=== PATIENT | female | born 1965 | race Caucasian/White ===

== ENCOUNTER → 2023-06-11 09:42 | Outpatient (REF) | payer MEDICARE, OTHER, SELFPAY ==
[2023-06-11 12:32] LABS: Chloride 110 mmol/L (98-107); Sodium 143 mmol/L (135-145)
[2023-06-11 12:35] LABS: Albumin 3.7 g/dl (3.5-5.0); Blood Urea Nitrogen 11 mg/dl (7-17); Calcium 8.7 mg/dl (8.4-10.2); Carbon Dioxide 20 mmol/L (22-30); Glomerular Filtration Rate 29.1; Glucose 86 mg/dl (70-99); Phosphorus 4.9 mg/dl (2.5-4.5)
== END ==
LOC: REG 09:42
PROVIDERS: ATTENDING PHYSICIAN Specialist
DX: N18.31 Chronic kidney disease, stage 3a (principal); E87.6 Hypokalemia; I10 Essential (primary) hypertension; N17.9 Acute kidney failure, unspecified
CPT/HCPCS: 36415; 80069

== ENCOUNTER 2023-10-20 16:21 | Inpatient (IN) | payer MEDICARE, OTHER, SELFPAY ==
[2023-10-20] VITALS (10 sets, daily range): BP systolic 92–133; BP diastolic 61–91; PULSE 90–123; BMI 25.9
[2023-10-20 11:34] LABS: % Basophils 0.7 % (0-2); % Eosinophils 1.1 % (0-6); % Immature Granulocytes 0.2 % (0-0.5); % Lymphocytes 31.8 % (20.5-51.1); % Monocytes 8.4 % (1.7-9.3); % Neutrophils 57.8 % (42.2-75.2); Absolute Eosinophils 0.1 10^3/uL (0-0.7); Absolute Lymphocytes 1.8 10^3/uL (1.2-3.4); Absolute Monocytes 0.5 10^3/uL (0.1-0.6); Absolute Neutrophils 3.2 10^3/uL (1.4-6.5); Hematocrit 32.1 % (37.0-47.0); Hemoglobin 11.4 g/dL (12.0-16.0); Mean Corp Hgb Conc. 35.5 g/dL (33.0-37.0); Mean Corpuscular Hgb 30.8 pg (27.0-31.0); Mean Corpuscular Volume 86.8 fL (81.0-99.0); Mean Platelet Volume 10.2 fL (7.4-10.4); Nucleated Red Blood Cells % 0 %; Platelet Count 344 10^3/uL (130-400); Red Cell Dist. Width 14.6 % (11.5-14.5); White Blood Cell Count 5.6 10^3/uL (4.8-10.8)
[2023-10-20 11:56] LABS: Sodium 136 mmol/L (135-145)
[2023-10-20 11:59] LABS: ALT (SGPT) 44 U/L (0-35); AST (SGOT) 88 U/L (14-36); Albumin 3.5 g/dl (3.5-5.0); Alkaline Phosphatase 128 U/L (38-126); Blood Urea Nitrogen 10 mg/dl (7-17); Calcium 8.5 mg/dl (8.4-10.2); Carbon Dioxide 30 mmol/L (22-30); Chloride 98 mmol/L (98-107); Glucose 96 mg/dl (70-99); Potassium 2.5 mmol/L (3.5-5.1); Total Bilirubin 1.3 mg/dl (0.2-1.3); Total Protein 6.3 g/dl (6.3-8.2); eGFR 48.26
--- NOTE | 2023-10-20 12:52 | ED.GENMED ---
History of Present Illness
General
Chief Complaint: Blood Pressure Problem
Source: patient and spouse
Time Seen by Provider: 10/20/23 12:31
Travel History
Have you had any contact with someone who has COVID-19?: No
Do you have any symptoms of coronavirus? Fever > 100 degrees, chills, cough, shortness of breath, sore throat, loss of taste or smell, muscle aches, or headache?: No
History of Present Illness
History of Present Illness:
Patient is a 58-year-old female presents emergency department with complaints of palpitations. She does not typically get palpitations, noticed them 'all morning', and now intermittently. This is not associated with chest pain or pressure, back
pain, neck pain, headache, dizziness, dyspnea, fever. She does have intermittent chills. Patient has had recent medication changes due to a rising creatinine, noted hypokalemia, and intermittent hypotension. 3 weeks ago when in the associate professor of [employer]
office, her carvedilol and spironolactone were discontinued and she was prescribed sodium tablets. She is compliant with this. She continues to suffer with orthostatic symptoms that resolved after a few seconds with standing up too quickly. She
denies syncope, headache. Patient admits to being noncompliant with her potassium pills for at least the last 2 weeks because of the size.
Past History
Past History
ED Past Medical History: Asthma, CHF, Fibromyalgia, GERD, Hypothyroidism, Psychiatric and Other (Diabetes)
ED Past Surgical History: Cholecystectomy and Other (Laparoscopies, bariatric)
Social History
Tobacco: Non-smoker
Alcohol: None
Drug: None
Personal:
Living: with family
Family History
Family History: Diabetes
Phy Exam
Physical Exam
Physical Exam:
GENERAL: Alert , in no apparent distress
EYE: pupils equal and reactive
NECK: Supple, no significant adenopathy.
ENT: o/p clr, mmm.
CARDIAC: Regular rate and rhythm .
LUNGS: Clear breath sounds bilaterally, no acute respiratory distress, no wheezes/rales/rhonchi
ABDOMEN: Soft, without focal tenderness, no r/g, no cvat
NEUROLOGICAL: Alert and oriented, no focal neuro deficits
SKIN: Warm and dry, skin intact.
MUSCULOSKELETAL: No edema, well perfused.
PSYCH: Normal and appropriate interaction.
Course
Orders/Labs/Results
Orders:
Orders
10/20/23 11:17
Electrocardiogram (*1) Urgent
Reason for Study: Fatigue / Weakness
EKG- Treatment ONCE
10/20/23 11:26
Complete Blood Count/With Diff Urgent
Comprehensive Metabolic Panel Urgent
Magnesium Urgent
Comment: ADD ON
Phosphorus Urgent
Comment: ADD ON
TSH Urgent
Comment: ADD ON
10/20/23 12:47
Orthostatic VS- Treatment ONCE
10/20/23 12:54
Add On- LAB Urgent
Tests Added?: tsh, phosphorus, magnesium
10/20/23 13:02
Potassium Chloride [KCl] 40 meq 0.9% Sodium Chloride 250 ml [Nss] 250 ml IV NOW
10/20/23 14:50
Teds [Anti-embolism (EDUAR) Hose] As Directed
Type: Knee high
10/20/23 Dinner
2000 calorie (17 carb) Diabetic
At Your Request: Full Participation
10/20/23 15:20
Potassium Chloride 10% Elixir [KCl Elixir] 40 meq PO NOW STA
10/20/23 15:27
Admit/Transfer Patient As Directed
Co-Sign Provider:
Level of Care: Inpatient admission
Assign to:: Telemetry
Physician / Group: Gennaro
Diagnosis: Hypokalemia
Reason for Telemetry: Other
Other Reason for Telemetry: Electrolyte Abnormalities
Date to Stop Telemetry: 10/22/23
Time to Stop Telemetry: 11:00
Reason for Hospitalization: potassium replacement
Expected length of stay greater than two midnights?: Yes
ELOS- Estimated Length of Stay in days: 3
I certify the patient meets the requirements for IP care: Yes
10/20/23 15:29
Code Status As Directed
Resuscitation Status: Full Code
10/20/23 15:49
Magnesium Sulfate 1 grams 0.9% Sodium Chloride 100 ml [Nss] 100 ml IV NOW
10/20/23 16:00
0.9% Sodium Chloride 1000 ml [Nss] 1,000 ml IV 60 mls/hr
10/20/23 16:21
NEPHROLOGY CONSULT Routine
Consulting Provider: Geraldine Sprague
Was physician already notified: Yes
10/20/23 17:15
Acetaminophen [Tylenol] 650 mg PO Q4HPRN PRN
Dextrose 50%-Water [Dextrose 50% Syringe] 12.5 grams IV [id number] PRN
Glucagon [GlucaGen] 1 mg IM PRN PRN
HYDROmorphone [Dilaudid] 4 mg PO BIDPRN PRN
Insulin Aspart Corrective Low [Novolog Flexpen-Low Resistance] See Protocol SC AC
Ondansetron Injectable [Zofran] 4 mg IV Q6HPRN PRN
Zolpidem Tartrate [Ambien] 10 mg PO HSPRN PRN
10/20/23 17:15
Activity As Directed
Activity Level: Out of Bed-Early Mobility
With Assistance
Bedside Glucose Monitoring As Directed
Frequency: AC&HS
Comment: Change to q6h if pt on TPN, tube feeding or not eating
I&O [Intake/ Output] As Directed
Frequency: q12h
Orthostatic Vital Signs As Directed
Orthostatic VS Frequency: BID
Pneumatic Compression Sleeves As Directed
Type: Knee high
Vital Signs As Directed
Frequency: Per unit guidelines
Weight As Directed
Frequency: Daily
DX Deep Vein Thrombosis Video Routine
10/20/23 18:07
Creatine Phosphokinase Routine
Comment: ADD ON
10/20/23 20:00
Cyclobenzaprine HCl [Flexeril] 20 mg PO DAILY@1999
Sodium Chloride 1 gram PO BID
10/20/23 22:00
Famotidine [Pepcid] 20 mg PO HS
Ropinirole [Requip] 4 mg PO HS
10/21/23 02:09
Complete Blood Count/No Diff IN AM
Glycohemoglobin (HgbA1c) IN AM
10/21/23 06:30
Magnesium IN AM
10/21/23 07:00
Levothyroxine [Synthroid] 50 mcg PO DAILY@0700
10/21/23 08:00
Bupropion(24Hr)Extended Releas [WELLBUTRIN XL (24 hour extended release)] 150 mg PO DAILY
Cyclobenzaprine HCl [Flexeril] 10 mg PO DAILY
Potassium Chloride Powder [Klor-Con] 20 meq PO DAILY
10/22/23 11:00
DC Protocol for Telemetry ONCE
Abnormal Lab Results
10/20/23
11:26
RBC 3.70 L 10^6/uL
(4.20-5.40)
Hgb 11.4 L g/dL
(12.0-16.0)
Hct 32.1 L %
(37.0-47.0)
RDW 14.6 H %
(11.5-14.5)
Potassium 2.5 L* mmol/L
(3.5-5.1)
Creatinine 1.3 H mg/dL
(0.6-1.0)
AST 88 H U/L
(14-36)
ALT 44 H U/L
(0-35)
Alkaline Phosphatase 128 H U/L
(38-126)
10/20/23 11:26
10/20/23 11:26
Vital Signs
Initial and Last Documented VS:
Initial Vital Signs
Temp Pulse Resp BP Pulse Ox
98.0 F 101 16 127/83 98
10/20/23 11:14 10/20/23 11:14 10/20/23 11:14 10/20/23 11:14 10/20/23 11:14
Last Documented Vital Signs
Temp Pulse Resp BP Pulse Ox
98.1 F 100 16 106/73 96
10/22/23 12:18 10/22/23 12:18 10/22/23 12:18 10/22/23 12:18 10/22/23 12:18
*Critical Care Note
Total Time (30-74mins, 75-104mins- exclusive of procedures): Not Applicable
Update Note
Update Note:
Patient presents to the Emergency Department with __palpitations
Number and Complexity of Problems Addressed at the Encounter
� Chronic conditions affecting care:
� Acute Exacerbation and/or Progression of Chronic Illness:
� Differential Diagnosis includes: But not limited to electrolyte disturbance, hyperthyroidism, medication effect, etc.
Amount and/or Complexity of Data to be Reviewed and Analyzed
� I performed an independent evaluation of and my interpretation is:
EKG: Read by me, normal sinus rhythm, slight T wave flattening, no acute ischemia, slight low voltage
CT:
Xrays:
Laboratory Studies: Anemia noted but at baseline, creatinine improved from prior which was 2.0 in the past now 1.3. Potassium low at 2.5, will replace
Other:
� Review of other/old records reveals:
� Clinical information was obtained by an independent historian: who is bedside
� Prescriptions/Medications Considered but not given:
� Further testing considered but not performed:
Risk of Complications and/or Morbidity or Mortality of Patient Management
� Social determinants of health affecting care:
� Discussion with other providers (PCP, Hospitalists, Consultants, etc):
� Escalation of care including admission/observation vs risk of discharge considered: Text sent to nephrology regarding labs and plan of care thus far.
Magnesium and phosphorus unremarkable/normal, TSH pending. I suspect her low potassium is contributing to her symptoms of palpitations and dizziness. Of note, orthostatic positive, heart rate increased by 30 bpm upon standing. She may have an
element of mild volume depletion although clinically she does not look particularly dry. We are being judicious regarding IV fluids given her history of heart failure. IV potassium infusing now. Nephrology and hospitalist aware, hospitalist will
admit.
ED Attending Note
-
Portions of this chart may have been created with voice recognition software.� Occasional wrong word or��sound alike� substitutions may have occurred due to the inherent limitations of voice recognition software.
Discharge Plan
Departure
Patient Disposition: Admit
Date of Disposition: 10/20/23
Time of Disposition: 14:42
Admit to: Telemetry
Presentation/result/management discussed w/ accepting MD/: tyler
Condition: Good
Discharge Problem:
Acute hypokalemia
Interventions
Interventions:
*Risk Screen - Suicide Last Done: 10/20/23 17:45
*General Assessment Last Done: 10/20/23 17:07
*Neglect/Abuse Screening Last Done: 10/20/23 13:05
ED- Fall Risk Assessment Last Done: 10/20/23 17:07
*ED COVID-19 Vaccine History Last Done: 10/20/23 11:14
*Nursing Disposition Last Done: 10/20/23 17:07
ED- Cardiac Assessment Last Done: 10/20/23 13:05
ED- Neurological Assessment Last Done: 10/20/23 13:05
ED- Pulmonary Assessment Last Done: 10/20/23 13:05
Discharge Date and Time
Discharge Date/Time: 10/20/23 17:09
[2023-10-20 13:38] LABS: Magnesium 1.8 mg/dl (1.6-2.3); Phosphorus 3.7 mg/dl (2.5-4.5)
[2023-10-20] MEDS: KCL 270 MEQ IV ×2 (14:12→21:33)
[2023-10-20 15:06] LABS: TSH 1.87 uIU/ml (0.47-4.68)
[2023-10-20] MEDS: KCL ELIXIR 40 MEQ PO (15:35)
--- NOTE | 2023-10-20 15:51 | HPS.HSE ---
Addendum entered and electronically signed by Jesse Burdick MD 10/20/23 16:04:
I saw and examined the patient.
The PATIENT CARE REPRESENTATIVE or PA's note was reviewed and I agree with the note.
Comment: 58-year-old female with past medical history of diabetes, CKD, hypothyroidism, insomnia, depression, anxiety, rheumatoid arthritis, GERD, fibromyalgia, restless leg syndrome came to the hospital with palpitations. Potassium in the ED 2.5.
Replete potassium. Does noted occasional nausea from past 2 weeks. Replete magnesium. Nephrology consulted. Monitor LFTs. Denies any abdominal pain.
General:�Comfortable and Conversant
HEENT:�NormoCephalic, Anicteric
Respiratory:�Clear, no wheezing
Cardiac:�S1/S2, Regular Rhythm
GI:�Soft and Non Tender
Musculoskeletal:�No Edema
Neuro:�Awake, Alert, Oriented and Nonfocal/grossly intact
Psych: calm
Original Note:
Family Physician
-
Family Physician: Roxy Hussein
Chief Complaint
-
Palpitations
History of Present Illness
Pt is a 58yo F w/ a PMH of CKD-III, Asthma, DM-II and Hypothyroidism who is presenting to the ED c/o palpitations x 1 day. She states she has previously experienced intermittent palpitations over the last few months, but felt this was more severe.
She states she has been experiencing several bouts of nausea with vomiting over the last 2 weeks that she describes as intermittent and states the emesis is bilious and non-bloody. The pt admits to intermittent constipation and diarrhea that she
states are brown in color and occur intermittently over the last 2 weeks with no blood in the stool and states she last experienced diarrhea 3 days ago. She was seen by her independent trader 3 weeks ago and was told to discontinue her Carvedilol and
Spironolactone and prescribed her sodium tablets and potassium tablets due to her increased creatinine, hypokalemia and orthostasis. She has been compliant with the sodium but not the potassium as she says the potassium tablets are too large and
she's unable to swallow them. She admits to dizziness with movement x 6 weeks. She admits to constant fatigue x 6 weeks. She states she has been experiencing weakness in her lower legs x 6 weeks. She denies fever, chest pain or chest pressure,
shortness of breath, and syncopal episodes.
Medical History
Past Medical History
Past Medical History: Reports Other
Additional Past Medical History:
Dilated Cardiomyopathy - Resolved
Diabetes Mellitus, Type II
CKD Stage III
Hypothyroidism
Anxiety / Depression / Insomnia
GERD / Erosive Esophagitis
Rheumatoid Arthritis
Fibromyalgia
Restless Leg Syndrome
Past Surgical History: Reports Other
Additional Past Surgical History:
Bariatric Surgery - Duodenal Switch
Cholecystectomy
Right Hand Surgery
Knee Arthroscopy
Social History
Tobacco: Non-smoker
Alcohol: None
Drug: None
Family History
Family History: Not pertinent
Allergies / Home Medications
Allergies reflects when Allergies were last updated in [employer]
Home Medications with original date entered in [employer]
Allergy/Medication List:
Allergies
Allergy/AdvReac Type Severity Reaction Status Date / Time
cat dander Allergy Severe Shortness Verified 10/20/23 11:16
of Breath
house dust Allergy Severe Shortness Verified 10/20/23 11:16
of Breath
dog dander Allergy Intermediate Shortness Verified 10/20/23 11:16
of Breath
grass pollen Allergy Intermediate Shortness Verified 10/20/23 11:16
of Breath
shellfish derived Allergy Intermediate Nausea / Verified 10/20/23 11:16
Vomiting
Sulfa (Sulfonamide Allergy Intermediate Nausea / Verified 10/20/23 11:16
Antibiotics) Vomiting
house dust mite Allergy Shortness Verified 10/20/23 11:16
of Breath
hardwood trees Allergy Shortness Uncoded 10/20/23 11:16
of Breath
Home Medications
albuterol sulfate 90 mcg/actuation aerosol inhaler 2 puff inhalation R Q4HPRN PRN shortness of breath 04/10/19
diclofenac sodium 1 % topical gel (Voltaren) 1 applic topical DAILYPRN PRN BACK AND LEGS pain 10/05/19
levothyroxine 50 mcg tablet 50 mcg PO DAILY@0700 Thyroid 10/05/19
ondansetron 4 mg disintegrating tablet 4 mg PO Q8HPRN PRN nausea 10/05/19
bisacodyl 5 mg tablet,delayed release 15 mg PO DAILYPRN PRN constipation 02/27/21
cyclobenzaprine 10 mg tablet 10 mg PO DAILY 02/27/21
docusate sodium 100 mg capsule 100 mg PO DAILYPRN PRN constipation 02/27/21
omeprazole 40 mg capsule,delayed release 40 mg PO DAILY Gastrointestinal Issue 02/27/21
fluticasone propionate 50 mcg/actuation nasal spray,suspension 2 spray intranasal DAILY PRN congestion 03/05/21
multivitamin 1 tab PO DAILY Supplement 04/30/23
tirzepatide 15 mg/0.5 mL subcutaneous pen injector (Mounjaro) 15 mg SC MO Diabetes 04/30/23
zolpidem 10 mg tablet 10 mg PO HSPRN PRN insomnia 04/30/23
famotidine 40 mg tablet 40 mg PO HS Gastrointestinal Issue 05/05/23
hydromorphone 4 mg tablet (Dilaudid) 4 mg PO BIDPRN PRN severe pain 05/05/23
abatacept 50 mg/0.4 mL subcutaneous syringe (Orencia) 1 mg SC MONTHLY 10/20/23
bupropion HCl 150 mg 24 hr tablet, extended release 150 mg PO DAILY Mental Health 10/20/23
cyclobenzaprine 10 mg tablet 20 mg PO DAILY@199910/20/23
furosemide 40 mg tablet 40 mg PO DAILYPRN PRN 2 lb weight gain 10/20/23
potassium chloride 20 mEq tablet,extended release 20 meq PO .SEE BELOW 10/20/23
ropinirole 4 mg tablet 4 mg PO HS 10/20/23
sodium chloride 1,000 mg soluble tablet 1,000 mg PO BID 10/20/23
Review of Systems
-
A 12 point ROS was completed and negative except as noted: Yes
Constitutional: Denies Fever or Chills
Respiratory: Denies Cough or Trouble Breathing
Cardiac: Reports Palpitations; Denies Chest Pain
Physical Exam
Vital Signs
Vital Signs
Temp Pulse Resp BP Pulse Ox
98.0 F 94 13 106/67 100
10/20/23 11:14 10/20/23 15:30 10/20/23 15:30 10/20/23 15:00 10/20/23 15:30
Physical Exam
General: Comfortable and Conversant
HEENT: NormoCephalic, Anicteric, Moist mucous membranes and Atraumatic
Respiratory: Clear and Non Labored Respirations
Cardiac: S1/S2, Regular Rhythm and Tachycardia (Slightly)
GI: Soft and Non Tender
Rectal: Deferred by Provider
Musculoskeletal: No Clubbing, No Cyanosis and No Edema
Skin: Warm and Dry
Neuro: Awake, Alert, Oriented and Nonfocal/grossly intact
Laboratory Results
-
10/20/23 11:26
Laboratory Results
Total Bilirubin 1.3 mg/dl (0.2-1.3) 10/20/23 11:26
AST 88 U/L (14-36) H 10/20/23 11:26
ALT 44 U/L (0-35) H 10/20/23 11:26
Alkaline Phosphatase 128 U/L (38-126) H 10/20/23 11:26
Data Reviewed
-
Lab Data: Labs Reviewed by me
Impression/Plan
-
Symptomatic Hypokalemia, likely related to some GI loss and inability to tolerate potassium tablets
-Consult Nephrology
-Replace potassium PO and IV
-Recheck potassium later this evening and in AM
-Change potassium tablets to powder
Diabetes Mellitus, Type II
-Hold Mounjaro due to intermittent GI symptoms
-Check HgbA1c
-Monitor sugars and continue coverage insulin
Hypotension
-Check orthostatic vital signs
-Continue EDUAR stockings
-Continue sodium tablets
Anxiety / Depression / Insomnia
-Continue bupropion and zolpidem
GERD / Erosive Esophagitis
-Continue famotidine and Protonix
Rheumatoid Arthritis
Fibromyalgia
Chronic Pain with Opioid Dependence
-Patient maintained on Orencia as outpatient
-Continue Flexeril
-Continue Dilaudid as prior to admission
DVT proph: SCDs
Code Status: Full Code
--- NOTE | 2023-10-20 16:15 | W.CON.NEPH ---
Consultation
-
Requesting Provider: Aurora Singh
Performing Provider: Geraldine Sprague
Reason for Consultation: hypokalemia
Medical History
-
Chief Complaint: hypokalemia
History of Present Illness:
Ms. Mercado is a 58YOF with PMH of CKD III, asthma, T2DM, hypothyroidism who presents to the ED after experiencing heart fluttering since this AM.
Briefly, she is followed byDr. Allen who saw her a few weeks ago and placed her on salt tabs, stopped antihypertesnives and encouraged PO intake. She has lost about 20 lbs since the beginning of the year and is noted to be on Mounjaro. She has also
been unable to take potassium due to her nausea. She also endorses poor appetite and intermittent diarrhea. She endorses significant fatigue over the past 6 weeks, along with dizziness.
Past Medical History
Dilated Cardiomyopathy - Resolved
Diabetes Mellitus, Type II
CKD Stage III
Hypothyroidism
Anxiety / Depression / Insomnia
GERD / Erosive Esophagitis
Rheumatoid Arthritis
Fibromyalgia
Restless Leg Syndrome
Past Medical History: Fibromyalgia, GERD, Hypothyroidism and IDDM
Past Surgical History: Other (Bariatric Surgery - Duodenal Switch)
Social History
Tobacco: Non-Smoker
Alcohol: None
Drug: None
Personal:
Living: Other (currently living in a hotel)
Family History
Family History: Not Pertinent
Allergies / Home Medications
Allergy/AdvReac Type Severity Reaction Status Date / Time
cat dander Allergy Shortness Verified 10/20/23 15:55
of Breath
dog dander Allergy Shortness Verified 10/20/23 15:55
of Breath
grass pollen Allergy Shortness Verified 10/20/23 15:55
of Breath
house dust Allergy Shortness Verified 10/20/23 15:55
of Breath
house dust mite Allergy Shortness Verified 10/20/23 11:16
of Breath
shellfish derived Allergy Nausea / Verified 10/20/23 15:55
Vomiting
Sulfa (Sulfonamide Allergy Nausea / Verified 10/20/23 15:55
Antibiotics) Vomiting
hardwood trees Allergy Shortness Uncoded 10/20/23 11:16
of Breath
Medication Instructions Recorded Confirmed Type
albuterol sulfate 90 mcg/actuation 2 puff inhalation R Q4HPRN PRN 04/10/19 10/20/23 History
aerosol inhaler shortness of breath
diclofenac sodium 1 % topical gel 1 applic topical DAILYPRN PRN BACK 10/05/19 10/20/23 History
(Voltaren) AND LEGS pain
levothyroxine 50 mcg tablet 50 mcg PO DAILY@0700 Thyroid 10/05/19 10/20/23 History
ondansetron 4 mg disintegrating 4 mg PO Q8HPRN PRN nausea 10/05/19 10/20/23 History
tablet
bisacodyl 5 mg tablet,delayed 15 mg PO DAILYPRN PRN constipation 02/27/21 10/20/23 History
release
cyclobenzaprine 10 mg tablet 10 mg PO DAILY 02/27/21 10/20/23 History
docusate sodium 100 mg capsule 100 mg PO DAILYPRN PRN constipation 02/27/21 10/20/23 History
omeprazole 40 mg capsule,delayed 40 mg PO DAILY Gastrointestinal 02/27/21 10/20/23 History
release Issue
fluticasone propionate 50 2 spray intranasal DAILY PRN 03/05/21 10/20/23 History
mcg/actuation nasal congestion
spray,suspension
multivitamin 1 tab PO DAILY Supplement 04/30/23 10/20/23 History
tirzepatide 15 mg/0.5 mL 15 mg SC MO Diabetes 04/30/23 10/20/23 History
subcutaneous pen injector
(Mounjaro)
zolpidem 10 mg tablet 10 mg PO HSPRN PRN insomnia 04/30/23 10/20/23 History
famotidine 40 mg tablet 40 mg PO HS Gastrointestinal Issue 05/05/23 10/20/23 History
hydromorphone 4 mg tablet 4 mg PO BIDPRN PRN severe pain 05/05/23 10/20/23 History
(Dilaudid)
abatacept 50 mg/0.4 mL 1 mg SC MONTHLY 10/20/23 10/20/23 History
subcutaneous syringe (Orencia)
bupropion HCl 150 mg 24 hr tablet, 150 mg PO DAILY Mental Health 10/20/23 10/20/23 History
extended release
cyclobenzaprine 10 mg tablet 20 mg PO DAILY@199910/20/23 10/20/23 History
furosemide 40 mg tablet 40 mg PO DAILYPRN PRN 2 lb weight 10/20/23 10/20/23 History
gain
potassium chloride 20 mEq 20 meq PO .SEE BELOW 10/20/23 10/20/23 History
tablet,extended release
ropinirole 4 mg tablet 4 mg PO HS 10/20/23 10/20/23 History
sodium chloride 1,000 mg soluble 1,000 mg PO BID 10/20/23 10/20/23 History
tablet
Review of Systems
-
History Source: Patient
All other systems: Negative unless noted
Constitutional: Weight Loss and Fatigue
EENT: No Symptoms
Respiratory: No Symptoms
Cardiac: Palpitations
Abdomen/GI: Abdominal Pain, Nausea, Vomiting, Diarrhea and Constipated
: No Symptoms
Musculoskeletal: No Symptoms
Skin: No Symptoms
Neurological: Dizzy
Endocrine: No Symptoms
Hematologic/Lymphatic: No Symptoms
Physical Exam
Vital Signs
Vital Signs
Temp Pulse Resp BP Pulse Ox
98.0 F 94 13 106/67 100
10/20/23 11:14 10/20/23 15:30 10/20/23 15:30 10/20/23 15:00 10/20/23 15:30
Lab Results
WBC 5.6 10^3/uL (4.8-10.8) 10/20/23 11:26
RBC 3.70 10^6/uL (4.20-5.40) L 10/20/23 11:26
Hgb 11.4 g/dL (12.0-16.0) L 10/20/23 11:26
Hct 32.1 % (37.0-47.0) L 10/20/23 11:26
Plt Count 344 10^3/uL (130-400) 10/20/23 11:26
Sodium 136 mmol/L (135-145) 10/20/23 11:26
Chloride 98 mmol/L (98-107) 10/20/23 11:26
Carbon Dioxide 30 mmol/L (22-30) 10/20/23 11:26
BUN 10 mg/dl (7-17) 10/20/23 11:26
Creatinine 1.3 mg/dL (0.6-1.0) H 10/20/23 11:26
eGFR 48.26 10/20/23 11:26
Glucose 96 mg/dl (70-99) 10/20/23 11:26
Calcium 8.5 mg/dl (8.4-10.2) 10/20/23 11:26
Phosphorus 3.7 mg/dl (2.5-4.5) 10/20/23 11:26
Albumin 3.5 g/dl (3.5-5.0) 10/20/23 11:26
Physical Exam
General: AOx3 and No Distress
HEENT: PERRL, EOMI, Anicteric, Conjunctivae Clear, Ear/Nose Intact and Hearing Normal
Respiratory: Clear
Cardiac: S1/S2
Breast: Deferred by me
Abdomen: Soft, Nontender and Nondistended
Rectal: Deferred by Provider
Musculoskeletal: No Edema
Skin: No Rash
Neuro: Nonfocal/Grossly Intact
Hematologic/Lymphatic: No Cervical Lymphadenopathy
Psych: Mood/afflect pleasant
Assessment/Plan
-
Assessment:
Hypokalemia
Hypotension
T2DM
Anxiety/depression
RA/Fibromyalgia
Plan:
Hypokalemia
- likely from poor PO intake + diarrhea
- check CK to ensure no rhabdo from significant hypokalemia
- encourage agressive repletion
- check K q6h to ensure moving in the right direction
- will calculate TTKG to ensure no renal wasting of K.
- obtain urine K, urine osm and plasma osm.
Hypotension
- agree with orthostatic vitals
- encourage compression stockings
- c/w salt tabs
Data Reviewed
-
Ultrasound: Report Reviewed by me
Labs: Labs Reviewed by me, Discussed with Physician and Discussed with Patient
Old Records: Reviewed
[2023-10-20] MEDS: NSS 1000 IV (18:28)
[2023-10-20 18:34] LABS: Glucose - Point of Care 84 mg/dl (70-99)
[2023-10-20 18:34] LABS: Blood Urea Nitrogen 9 mg/dl (7-17); Calcium 7.5 mg/dl (8.4-10.2); Carbon Dioxide 24 mmol/L (22-30); Chloride 106 mmol/L (98-107); Creatine Phosphokinase 61 U/L (30-135); Estimated Creatinine Clearance 43 ml/min; Glucose 78 mg/dl (70-99); Potassium 2.8 mmol/L (3.5-5.1); Sodium 136 mmol/L (135-145); eGFR 53.13
[2023-10-20] MEDS: NOVOLOG FLEXPEN-LOW RESISTANCE SC (18:36)
[2023-10-20] MEDS: KLOR-CON 40 MEQ PO (19:56)
[2023-10-20] MEDS: FLEXERIL 20 MG PO (19:57)
[2023-10-20] MEDS: SODIUM CHLORIDE 1 GRAM PO (19:57)
[2023-10-20] MEDS: MAGNESIUM SULFATE 102 GRAMS IV (20:30)
[2023-10-20] MEDS: REQUIP 4 MG PO (21:33)
[2023-10-20] MEDS: PEPCID 20 MG PO (21:34)
[2023-10-20 21:38] LABS: Glucose - Point of Care 105 mg/dl (70-99)
[2023-10-20] MEDS: AMBIEN 10 MG PO (22:59)
[2023-10-21] VITALS (8 sets, daily range): BP systolic 97–134; BP diastolic 60–85; PULSE 99–134; O2SAT 95; BMI 26.1
[2023-10-21 02:15] LABS: Hematocrit 26.7 % (37.0-47.0); Hemoglobin 9.9 g/dL (12.0-16.0); Mean Corp Hgb Conc. 37.1 g/dL (33.0-37.0); Mean Corpuscular Hgb 31.1 pg (27.0-31.0); Mean Platelet Volume 9.9 fL (7.4-10.4); Platelet Count 266 10^3/uL (130-400); Red Blood Cell Count 3.18 10^6/uL (4.20-5.40); White Blood Cell Count 5.7 10^3/uL (4.8-10.8)
[2023-10-21 02:27] LABS: Potassium 3.1 mmol/L (3.5-5.1)
[2023-10-21] MEDS: KLOR-CON 20 MEQ PO ×2 (03:18→09:35)
[2023-10-21] MEDS: SYNTHROID 50 MCG PO (06:05)
[2023-10-21 08:04] LABS: ALT (SGPT) 36 U/L (0-35); AST (SGOT) 69 U/L (14-36); Albumin 2.8 g/dl (3.5-5.0); Alkaline Phosphatase 113 U/L (38-126); Blood Urea Nitrogen 8 mg/dl (7-17); Carbon Dioxide 25 mmol/L (22-30); Chloride 110 mmol/L (98-107); Direct Bilirubin 0.7 mg/dl (0.0-0.4); Estimated Creatinine Clearance 43 ml/min; Glucose 67 mg/dl (70-99); Potassium 3.4 mmol/L (3.5-5.1); Sodium 139 mmol/L (135-145); Total Bilirubin 1.1 mg/dl (0.2-1.3); Total Protein 5.5 g/dl (6.3-8.2); eGFR 53.13
[2023-10-21 08:20] LABS: Osmolality Serum 292 mOsm/kg (275-300)
[2023-10-21 08:24] LABS: Glucose - Point of Care 75 mg/dl (70-99)
[2023-10-21 09:34] LABS: Glycohemoglobin (HgbA1c) 5.2 % (4.0-5.6)
[2023-10-21] MEDS: NOVOLOG FLEXPEN-LOW RESISTANCE SC ×2 (09:34→17:31)
[2023-10-21] MEDS: WELLBUTRIN XL (24 hour extended release) 150 MG PO (09:35)
[2023-10-21] MEDS: FLEXERIL 10 MG PO (09:35)
[2023-10-21] MEDS: SODIUM CHLORIDE 1 GRAM PO ×2 (09:35→20:44)
[2023-10-21 10:32] LABS: Osmolality Urine 338 mOsm/kg (300-900)
--- NOTE | 2023-10-21 11:14 | W.PN.HOSP.TC ---
Today's Communication/Plan
-
Monitor vital signs and see plan
Repeat potassium
PT/OT
Monitor LFTs
Assessment / Plan
Assessment / Plan
General:�Comfortable and Conversant
HEENT:�NormoCephalic, Anicteric
Respiratory:�Clear, no wheezing
Cardiac:�S1/S2, Regular Rhythm
GI:�Soft and Non Tender
Musculoskeletal:�No Edema
Neuro:�Awake, Alert, Oriented and Nonfocal/grossly intact
Psych: calm
Symptomatic Hypokalemia, likely related to some GI loss and inability to tolerate potassium tablets
- Nephrology following
-Replete potassium
Diabetes Mellitus, Type II
-Hold Mounjaro due to intermittent GI symptoms
-Check HgbA1c 5.2. Will avoid Mounjaro at this time
-Monitor sugars and continue coverage insulin
Mild anemia
Suspect anemia of chronic disease, also some hemodilution
Check iron panel, B12, folate
monitor
Hypotension
-Monitor orthostatics, positive in the ED
-Continue EDUAR stockings
-Continue sodium tablets
Elevate LFTs
Monitor
no abdominal pain
Anxiety / Depression / Insomnia
-Continue bupropion and zolpidem
GERD / Erosive Esophagitis
-Continue famotidine and Protonix
Rheumatoid Arthritis
Fibromyalgia
Chronic Pain with Opioid Dependence
-Patient maintained on Orencia as outpatient
-Continue Flexeril
-Continue Dilaudid as prior to admission
DVT proph: SCDs
Code Status: Full Code
Anticipated Discharge: Within 24 hours
Subjective/Interval History
-
Date of Service: October 21, 2023
denies pain
Objective Data
-
Labs:
Laboratory Results
10/21/23 10/21/23 10/21/23
02:09 06:30 07:32
WBC 5.7
Hgb 9.9 L
Hct 26.7 L
Plt Count 266 D
Sodium 139
Potassium 3.1 L 3.4 L
Chloride 110 H
Carbon Dioxide 25
BUN 8
Creatinine 1.2 H
Glucose 67 L
Calcium 8.0 L
Total Bilirubin 1.1 Cancelled
AST 69 H Cancelled
ALT 36 H Cancelled
Alkaline Phosphatase 113 Cancelled
Vital Signs:
Vital Signs
Temp Pulse Resp BP Pulse Ox
98.1 F 94 18 97/60 98
10/21/23 07:00 10/21/23 07:00 10/21/23 07:00 10/21/23 07:00 10/21/23 07:00
[2023-10-21 11:22] LABS: Glucose - Point of Care 196 mg/dl (70-99)
[2023-10-21] MEDS: PROTONIX 40 MG PO (11:25)
[2023-10-21] MEDS: NOVOLOG FLEXPEN-LOW RESISTANCE 1 UNITS SC (11:25)
[2023-10-21] MEDS: NSS 1000 IV (12:50)
[2023-10-21] MEDS: KLOR-CON 40 MEQ PO (12:50)
[2023-10-21 13:51] LABS: Iron 91 ug/dl (37-170)
[2023-10-21 14:01] LABS: Percent Saturation 73 % (20-50); Total Iron Binding Capacity 124 ug/dl (265-497)
--- NOTE | 2023-10-21 14:03 | W.PN.NEPH.PH ---
Today's Communication / Plan
-
- K supplementation
Assessment/Plan
-
Assessment:
Hypokalemia
Hypotension
T2DM
Anxiety/depression
RA/Fibromyalgia
Plan:
Hypokalemia
- likely from poor PO intake + diarrhea
- CK wnl
- K 3.4 today, agree with supplementtion PRN
- will calculate TTKG to ensure no renal wasting of K.
- obtain urine K, urine osm and plasma osm (not yet completed)
Hypotension
- agree with orthostatic vitals
- encourage compression stockings
- c/w salt tabs
-
-
Date of Service: October 21, 2023
CC / HPI / ROS
-
Chief Complaint:
hypokalemia
History of Present Illness:
K improved today
Review of Systems:
feels much better
Labs
-
Labs:
WBC 5.7 10^3/uL (4.8-10.8) 10/21/23 02:09
RBC 3.18 10^6/uL (4.20-5.40) L 10/21/23 02:09
Hgb 9.9 g/dL (12.0-16.0) L 10/21/23 02:09
Hct 26.7 % (37.0-47.0) L 10/21/23 02:09
Plt Count 266 10^3/uL (130-400) D 10/21/23 02:09
Sodium 139 mmol/L (135-145) 10/21/23 06:30
Potassium 3.4 mmol/L (3.5-5.1) L 10/21/23 06:30
Chloride 110 mmol/L (98-107) H 10/21/23 06:30
Carbon Dioxide 25 mmol/L (22-30) 10/21/23 06:30
BUN 8 mg/dl (7-17) 10/21/23 06:30
Creatinine 1.2 mg/dL (0.6-1.0) H 10/21/23 06:30
eGFR 53.13 10/21/23 06:30
Glucose 67 mg/dl (70-99) L 10/21/23 06:30
Calcium 8.0 mg/dl (8.4-10.2) L 10/21/23 06:30
Phosphorus 3.7 mg/dl (2.5-4.5) 10/20/23 11:26
Albumin Cancelled 10/21/23 07:32
Physical Exam
-
Vital Signs:
Vital Signs
Temp Pulse Resp BP Pulse Ox
98.1 F 99 18 107/70 98
10/21/23 11:00 10/21/23 11:00 10/21/23 11:00 10/21/23 11:00 10/21/23 11:00
Cardiovascular:: Regular rate and rhythm
Respiratory:: Bilateral: CTA
Lung Excursion:: Normal
Abdomen:: Nontender and Soft
Bowel Sounds:: Normal
Extremity Edema:: None: Bilateral:
Munoz Catheter: No
--- NOTE | 2023-10-21 14:42 | CM ---
manager star reviewed patient's chart and met with patient and patient lives with her spouse in a multilevel home, patient is independent with adl's and uses a cane with ambulation. Patient drives. Patient has a prescription plan and uses [facility].
PCP: Dr Hussein
Plan; Home when stable.
[2023-10-21 14:56] LABS: Vitamin B12 941 pg/ml (239-931)
[2023-10-21 16:25] LABS: Folate 3.4 ng/ml (2.76-20)
[2023-10-21 17:32] LABS: Glucose - Point of Care 89 mg/dl (70-99)
[2023-10-21] MEDS: DILAUDID 4 MG PO (17:35)
[2023-10-21] MEDS: FLEXERIL 20 MG PO (20:43)
[2023-10-21] MEDS: PEPCID 20 MG PO (20:44)
[2023-10-21] MEDS: REQUIP 4 MG PO (20:44)
[2023-10-21] MEDS: AMBIEN 10 MG PO (23:07)
[2023-10-21 23:24] LABS: Urine Potassium 18.9 mmol/L (30-90)
[2023-10-22 01:45] LABS: Glucose - Point of Care 73 mg/dl (70-99)
[2023-10-22 03:45] VITALS: BP 106/69
[2023-10-22] MEDS: SYNTHROID 50 MCG PO (05:41)
[2023-10-22 06:00] VITALS: BMI 27.0
[2023-10-22 07:00] LABS: Glucose - Point of Care 45 mg/dl (70-99)
[2023-10-22 07:19] LABS: Glucose - Point of Care 62 mg/dl (70-99)
[2023-10-22 07:46] LABS: Glucose - Point of Care 53 mg/dl (70-99)
[2023-10-22 07:57] LABS: Glucose - Point of Care 62 mg/dl (70-99)
[2023-10-22 07:59] VITALS: BP 105/75
[2023-10-22 08:13] LABS: % Basophils 0.4 % (0-2); % Eosinophils 4.3 % (0-6); % Immature Granulocytes 0.4 % (0-0.5); % Lymphocytes 45.9 % (20.5-51.1); % Monocytes 8.8 % (1.7-9.3); % Neutrophils 40.2 % (42.2-75.2); Absolute Eosinophils 0.2 10^3/uL (0-0.7); Absolute Lymphocytes 2.1 10^3/uL (1.2-3.4); Absolute Monocytes 0.4 10^3/uL (0.1-0.6); Absolute Neutrophils 1.9 10^3/uL (1.4-6.5); Hematocrit 30.5 % (37.0-47.0); Hemoglobin 10.3 g/dL (12.0-16.0); Mean Corp Hgb Conc. 33.8 g/dL (33.0-37.0); Mean Corpuscular Volume 91.9 fL (81.0-99.0); Mean Platelet Volume 9.9 fL (7.4-10.4); Nucleated Red Blood Cells % 0 %; Platelet Count 244 10^3/uL (130-400); Red Blood Cell Count 3.32 10^6/uL (4.20-5.40); Red Cell Dist. Width 15.9 % (11.5-14.5); White Blood Cell Count 4.7 10^3/uL (4.8-10.8)
[2023-10-22] MEDS: NOVOLOG FLEXPEN-LOW RESISTANCE SC ×2 (08:27→12:01)
[2023-10-22] MEDS: SODIUM CHLORIDE 1 GRAM PO (08:28)
[2023-10-22] MEDS: FLEXERIL 10 MG PO (08:28)
[2023-10-22] MEDS: WELLBUTRIN XL (24 hour extended release) 150 MG PO (08:28)
[2023-10-22] MEDS: KLOR-CON 20 MEQ PO (08:28)
[2023-10-22] MEDS: PROTONIX 40 MG PO (08:28)
[2023-10-22 08:34] LABS: Glucose - Point of Care 64 mg/dl (70-99)
[2023-10-22 08:51] LABS: Glucose - Point of Care 73 mg/dl (70-99)
[2023-10-22 08:55] LABS: ALT (SGPT) 30 U/L (0-35); AST (SGOT) 54 U/L (14-36); Albumin 2.6 g/dl (3.5-5.0); Alkaline Phosphatase 86 U/L (38-126); Blood Urea Nitrogen 7 mg/dl (7-17); Calcium 8.3 mg/dl (8.4-10.2); Carbon Dioxide 25 mmol/L (22-30); Chloride 106 mmol/L (98-107); Estimated Creatinine Clearance 49 ml/min; Glucose 116 mg/dl (70-99); Potassium 3.4 mmol/L (3.5-5.1); Sodium 139 mmol/L (135-145); Total Bilirubin 0.7 mg/dl (0.2-1.3); Total Protein 5.5 g/dl (6.3-8.2); eGFR 53.13
--- NOTE | 2023-10-22 10:34 | W.PN.HOSP.TC ---
Addendum entered and electronically signed by Jesse Burdick MD 10/22/23 10:43:
Time of discharge 36 minutes
Original Note:
Today's Communication/Plan
-
Monitor vitals
See plan
Replete potassium
Hold Mounjaro on discharge
Repeat BMP next week with primary care provider
Assessment / Plan
Assessment / Plan
General:�Comfortable and Conversant
HEENT:�NormoCephalic, Anicteric
Respiratory:�Clear, no wheezing
Cardiac:�S1/S2, Regular Rhythm
GI:�Soft and Non Tender
Musculoskeletal:�No Edema
Neuro:�Awake, Alert, Oriented and Nonfocal/grossly intact
Psych: calm
Symptomatic Hypokalemia, likely related to some GI loss and inability to tolerate potassium tablets
- Nephrology following; spoke with nephrology and we think this could likely be secondary to Mounjaro. Advised patient to be off Mounjaro
-Replete potassium
Diabetes Mellitus, Type II
-Hold Mounjaro due to intermittent GI symptoms
-Check HgbA1c 5.2. Will avoid Mounjaro at this time
-Monitor sugars and continue coverage insulin
Mild anemia
Suspect anemia of chronic disease, also some hemodilution
Iron panel suggest good iron stores
monitor
Hypotension
-Monitor orthostatics, positive in the ED; now improved
-Continue EDUAR stockings
-Continue sodium tablets
Elevate LFTs
Monitor, improving
no abdominal pain
Anxiety / Depression / Insomnia
-Continue bupropion and zolpidem
GERD / Erosive Esophagitis
-Continue famotidine and Protonix
Rheumatoid Arthritis
Fibromyalgia
Chronic Pain with Opioid Dependence
-Patient maintained on Orencia as outpatient
-Continue Flexeril
-Continue Dilaudid as prior to admission
DVT proph: SCDs
Code Status: Full Code
Anticipated Discharge: Today
Subjective/Interval History
-
Date of Service: October 22, 2023
denies pain
Objective Data
-
Labs:
Laboratory Results
10/22/23
07:54
WBC 4.7 L
Hgb 10.3 L
Hct 30.5 L
Plt Count 244
Sodium 139
Potassium 3.4 L
Chloride 106
Carbon Dioxide 25
BUN 7
Creatinine 1.2 H
Glucose 116 H
Calcium 8.3 L
Total Bilirubin 0.7
AST 54 H
ALT 30
Alkaline Phosphatase 86
Vital Signs:
Vital Signs
Temp Pulse Resp BP Pulse Ox
98.2 F 94 16 105/75 99
10/22/23 07:59 10/22/23 07:59 10/22/23 07:59 10/22/23 07:59 10/22/23 07:59
I&O
10/21/23 10/22/23 10/23/23
06:59 06:59 06:59
Intake Total 780 / 780
Balance 780 / 780
--- NOTE | 2023-10-22 10:42 | W.DCSUMMARY ---
Discharge Summary
Discharge Data
Date of Admission: 10/20/23
Date of Discharge: 10/22/23
-
Pending Results: Yes
Hospital Course
58-year-old female with past medical history of type 2 diabetes mellitus, anxiety, depression, insomnia, GERD, erosive esophagitis, fibromyalgia, chronic pain with opioid dependence, rheumatoid arthritis came to the hospital with symptomatic
hypokalemia. He was determined that patient hypokalemia is likely related to GI losses and her inability to tolerate potassium tablets. It was determined that her GI symptoms are likely from Mounjaro. Patient A1c was 5.2 so patient was instructed
to avoid Mounjaro at this time. Patient was instructed to follow-up with her physician outpatient for further diabetes management. Patient also had mild anemia for which iron panel was suggestive of anemia of chronic disease. She also had
orthostatic hypotension on admission which over time improved. Once her symptoms improved, she was then discharged home with instructions to follow-up with all her physicians outpatient.
Discharge Plan
-
Patient Disposition: Home (Routine Discharge)
Discharge Diagnosis/Procedures: Symptomatic hypokalemia likely related to GI loss from Mounjaro
Anemia of chronic disease
Orthostatic hypotension
Dehydration
Diet: As tolerated
Activity: As tolerated
Driving Restrictions: As prior to admission
Bathing Restrictions: None
Blood Work: BMP next week with primary care provider
Referrals:
Roxy Hussein MD [Family Provider] - in less than 1 week
Prescriptions:
New
potassium chloride 20 mEq packet
20 meq PO BID Qty: 30 0RF
Continued
albuterol sulfate 1 PUFF HFA aerosol inhaler
2 puff inhalation R Q4HPRN PRN (Reason: shortness of breath)
levothyroxine 50 MCG tablet
50 mcg PO DAILY@0700
diclofenac sodium [Voltaren] 100 GM gel
1 applic topical DAILYPRN PRN (Reason: BACK AND LEGS pain)
Patient Comments:
11/14/19: apply to b/l feet
ondansetron 4 MG tablet,disintegrating
4 mg PO Q8HPRN PRN (Reason: nausea)
omeprazole 40 MG capsule,delayed release(DR/EC)
40 mg PO DAILY
cyclobenzaprine 10 MG tablet
10 mg PO DAILY
docusate sodium 100 MG capsule
100 mg PO DAILYPRN PRN (Reason: constipation)
bisacodyl 5 MG tablet,delayed release (DR/EC)
15 mg PO DAILYPRN PRN (Reason: constipation)
fluticasone propionate 1 SPRAY spray,suspension
2 spray intranasal DAILY PRN (Reason: congestion)
multivitamin Tablet
1 tab PO DAILY
zolpidem 10 mg Tablet
10 mg PO HSPRN PRN (Reason: insomnia)
famotidine 40 mg Tablet
40 mg PO HS
hydromorphone [Dilaudid] 4 mg Tablet
4 mg PO BIDPRN PRN (Reason: severe pain)
cyclobenzaprine 10 mg Tablet
20 mg PO DAILY@1999
ropinirole 4 mg Tablet
4 mg PO HS
bupropion HCl 150 mg tablet extended release 24 hr
150 mg PO DAILY
Orencia 50 mg/0.4 mL Syringe
1 mg SC MONTHLY
furosemide 40 mg tablet
40 mg PO DAILYPRN PRN (Reason: 2 lb weight gain)
sodium chloride 1,000 mg Tablet,Soluble
1,000 mg PO BID
Held
Mounjaro 15 mg/0.5 mL Pen Injector
15 mg SC MO
Hold Instructions: Hold until instructed to take it again by your provider
Rx Instructions:
Q
Discontinued
potassium chloride 20 mEq tablet extended release
20 meq PO .SEE BELOW
Patient Comments:
10/20/23: per prescription should take BID, patient unable to swallow tablets
Discharge Orders:
Discharge Patient (As Directed); Ordered 10/22/23
Ordered By: Jesse Burdick
Discharge Date and Time
Discharge Date/Time: 10/22/23 14:43
--- NOTE | 2023-10-22 11:07 | CM ---
real estate sales manager reviewed patient's chart and met with patient and patint has been cleared for discharge today.
Plan; Home today no needs.
[2023-10-22 11:26] LABS: Glucose - Point of Care 79 mg/dl (70-99)
[2023-10-22] MEDS: KLOR-CON 40 MEQ PO (11:52)
[2023-10-22 12:18] VITALS: BP 106/73
[2023-10-24 12:21] LABS: Transferrin 87 mg/dL (200-360)
== END 2023-10-22 14:43 | disposition home or self-care (01) | DRG 641 ==
LOC: 4 WEST ACU 16:21
PROVIDERS: Emergency Medicine; Physician Assistant Medical; ADMITTING PHYSICIAN Internal Medicine; CONSULT PHYSICIAN Student in an Organized Health Care Education/Training Program; EMERGENCY PHYSICIAN Emergency Medicine; FAMILY PHYSICIAN Family Medicine
DX: E87.6 Hypokalemia (principal); K22.10 Ulcer of esophagus without bleeding; F11.20 Opioid dependence, uncomplicated; F32.A Depression, unspecified; F41.9 Anxiety disorder, unspecified; G47.00 Insomnia, unspecified; M06.9 Rheumatoid arthritis, unspecified; K21.9 Gastro-esophageal reflux disease without esophagitis; M79.7 Fibromyalgia; G89.29 Other chronic pain; E11.22 Type 2 diabetes mellitus with diabetic chronic kidney disease; D63.8 Anemia in other chronic diseases classified elsewhere; I95.1 Orthostatic hypotension; E86.0 Dehydration
CPT/HCPCS: 80048; 80053; 82248; 82550; 82607; 82728; 82746; 82962; 83036; 83540; 83550; 83735; 83930; 83935; 84100; 84132; 84133; 84443; 84466; 85025; 85027; 93005; 96365; 96366; 97162; 99285

== ENCOUNTER → 2023-12-14 08:30 | Outpatient (REF) | payer MEDICARE, OTHER, SELFPAY ==
[2023-12-14 08:42] LABS: % Basophils 0.4 % (0-2); % Immature Granulocytes 0.1 % (0-0.5); % Lymphocytes 36.3 % (20.5-51.1); % Monocytes 8.8 % (1.7-9.3); % Neutrophils 53.4 % (42.2-75.2); Absolute Eosinophils 0.1 10^3/uL (0-0.7); Absolute Lymphocytes 2.6 10^3/uL (1.2-3.4); Absolute Monocytes 0.6 10^3/uL (0.1-0.6); Absolute Neutrophils 3.8 10^3/uL (1.4-6.5); Hematocrit 34.2 % (37.0-47.0); Hemoglobin 11.9 g/dL (12.0-16.0); Mean Corp Hgb Conc. 34.8 g/dL (33.0-37.0); Mean Corpuscular Hgb 31.7 pg (27.0-31.0); Mean Corpuscular Volume 91.2 fL (81.0-99.0); Mean Platelet Volume 9.9 fL (7.4-10.4); Platelet Count 317 10^3/uL (130-400); Red Blood Cell Count 3.75 10^6/uL (4.20-5.40); White Blood Cell Count 7.1 10^3/uL (4.8-10.8)
[2023-12-14 09:17] LABS: Nucleated Red Blood Cells % 0 %; Reticulocyte Count 1.4 % (0.4-2.8)
[2023-12-14 09:39] LABS: Erythrocyte Sed Rate 17 mm/hour (0-20)
[2023-12-14 09:42] LABS: Blood Urea Nitrogen 15 mg/dl (7-17); Iron 130 ug/dl (37-170)
[2023-12-14 09:51] LABS: Percent Saturation 96 % (20-50); Total Iron Binding Capacity 135 ug/dl (265-497)
[2023-12-17 05:30] LABS: Albumin 3.58 g/dL (3.75-5.01); Alpha 1 Globulin 0.41 g/dL (0.19-0.46); Alpha 2 Globulin 0.56 g/dL (0.48-1.05); Free Kappa Light Chains,Quant 53.38 mg/L (3.30-19.40); Free Lambda Light Chains,Quant 41.42 mg/L (5.71-26.30); IgA 377 mg/dL (68-408); IgG 1317 mg/dL (768-1632); IgM 90 mg/dL (35-263); Immunofixation Electrophoresis IFE Done; Kappa/Lambda Fr Light Ratio 1.29 (0.26-1.65); Total Protein-Electrophoresis 6.7 g/dL (6.3-8.2)
== END ==
LOC: OIDL 08:30
PROVIDERS: ATTENDING PHYSICIAN Internal Medicine Hematology & Oncology; FAMILY PHYSICIAN Family Medicine
DX: D50.9 Iron deficiency anemia, unspecified (principal); Z98.84 Bariatric surgery status; R63.4 Abnormal weight loss
CPT/HCPCS: 36415; 82565; 82728; 82784; 83521; 83540; 83550; 84155; 84165; 84520; 85025; 85045; 85652; 86334

== ENCOUNTER → 2023-12-15 08:02 | Outpatient (REF) | payer MEDICARE, OTHER, SELFPAY | LOC: RAD 08:02 | PROVIDERS: ATTENDING PHYSICIAN Internal Medicine Hematology & Oncology; FAMILY PHYSICIAN Family Medicine | DX: D50.9 Iron deficiency anemia, unspecified (principal); R63.4 Abnormal weight loss; Z98.84 Bariatric surgery status; R79.89 Other specified abnormal findings of blood chemistry; D64.9 Anemia, unspecified | CPT/HCPCS: 71260; 74177; Q9967 ==

== ENCOUNTER → 2023-12-22 15:36 | Outpatient (REF) | payer MEDICARE, OTHER, SELFPAY | LOC: WDC 15:36 | PROVIDERS: ATTENDING PHYSICIAN Internal Medicine Hematology & Oncology; FAMILY PHYSICIAN Family Medicine | DX: Z12.31 Encounter for screening mammogram for malignant neoplasm of breast (principal) | CPT/HCPCS: 77063; 77067 ==

== ENCOUNTER 2023-12-27 08:55 | Outpatient (RCR) | payer MEDICARE, OTHER, SELFPAY | END 2023-12-27 23:59 | disposition home or self-care (01) | LOC: RPT 08:55 | DX: M54.16 Radiculopathy, lumbar region (principal); Z73.6 Limitation of activities due to disability; R26.2 Difficulty in walking, not elsewhere classified; M62.81 Muscle weakness (generalized); R29.6 Repeated falls | CPT/HCPCS: 97110; 97112; 97162 ==

== ENCOUNTER → 2024-01-04 11:41 | Outpatient (REF) | payer MEDICARE, OTHER, SELFPAY ==
[2024-01-04 12:17] LABS: % Basophils 0.3 % (0-2); % Eosinophils 0.5 % (0-6); % Immature Granulocytes 0.2 % (0-0.5); % Lymphocytes 25.3 % (20.5-51.1); % Monocytes 8.7 % (1.7-9.3); Absolute Lymphocytes 1.5 10^3/uL (1.2-3.4); Absolute Monocytes 0.5 10^3/uL (0.1-0.6); Absolute Neutrophils 3.9 10^3/uL (1.4-6.5); Hematocrit 30.7 % (37.0-47.0); Hemoglobin 10.6 g/dL (12.0-16.0); Mean Corp Hgb Conc. 34.5 g/dL (33.0-37.0); Mean Corpuscular Hgb 31.2 pg (27.0-31.0); Mean Corpuscular Volume 90.3 fL (81.0-99.0); Mean Platelet Volume 10.3 fL (7.4-10.4); Platelet Count 238 10^3/uL (130-400); Red Cell Dist. Width 12.8 % (11.5-14.5)
[2024-01-04 13:27] LABS: ALT (SGPT) 52 U/L (0-35); AST (SGOT) 72 U/L (14-36); Albumin 3.3 g/dl (3.5-5.0); Alkaline Phosphatase 95 U/L (38-126); Amylase 50 U/L (30-110); Blood Urea Nitrogen 12 mg/dl (7-17); Calcium 8.8 mg/dl (8.4-10.2); Carbon Dioxide 28 mmol/L (22-30); Chloride 101 mmol/L (98-107); Glucose 82 mg/dl (70-99); Iron 116 ug/dl (37-170); Lipase 53 U/L (23-300); Potassium 3.6 mmol/L (3.5-5.1); Sodium 135 mmol/L (135-145); Total Bilirubin 0.9 mg/dl (0.2-1.3); Total Protein 6.2 g/dl (6.3-8.2); eGFR 40.65
[2024-01-04 13:36] LABS: Percent Saturation 88 % (20-50); Total Iron Binding Capacity 131 ug/dl (265-497)
== END ==
LOC: OIDL 11:41
PROVIDERS: ATTENDING PHYSICIAN Internal Medicine Hematology & Oncology
DX: D50.9 Iron deficiency anemia, unspecified (principal); Z98.84 Bariatric surgery status; D64.9 Anemia, unspecified
CPT/HCPCS: 36415; 80053; 81256; 82150; 82728; 83540; 83550; 83690; 85025

== ENCOUNTER 2024-01-12 09:02 | Outpatient (RCR) | payer MEDICARE, OTHER, SELFPAY | END 2024-01-12 23:59 | disposition home or self-care (01) | LOC: RPT 09:02 | PROVIDERS: ATTENDING PHYSICIAN Nurse Practitioner Family | DX: M54.16 Radiculopathy, lumbar region (principal); Z73.6 Limitation of activities due to disability; R26.2 Difficulty in walking, not elsewhere classified; M62.81 Muscle weakness (generalized); R29.6 Repeated falls | CPT/HCPCS: 97110; 97112 ==

== ENCOUNTER → 2024-01-25 06:24 | Day surgery (SDC) | payer MEDICARE, OTHER, SELFPAY ==
[2024-01-25 08:28] LABS: Glucose - Point of Care 96 mg/dl (70-99)
== END ==
LOC: GI 06:24
PROVIDERS: ATTENDING PHYSICIAN Specialist
DX: K57.30 Diverticulosis of large intestine without perforation or abscess without bleeding (principal); R19.7 Diarrhea, unspecified; D50.9 Iron deficiency anemia, unspecified; K31.89 Other diseases of stomach and duodenum; R93.3 Abnormal findings on diagnostic imaging of other parts of digestive tract; R11.0 Nausea; R10.12 Left upper quadrant pain
CPT/HCPCS: 45380; 43239; 88305; 82962; 88342

== ENCOUNTER → 2024-01-28 11:48 | Outpatient (REF) | payer MEDICARE, OTHER, SELFPAY | LOC: PAVMRI 11:48 | PROVIDERS: ATTENDING PHYSICIAN Internal Medicine Hematology & Oncology; FAMILY PHYSICIAN Family Medicine | DX: D50.9 Iron deficiency anemia, unspecified (principal); Z98.84 Bariatric surgery status; R63.4 Abnormal weight loss; R79.89 Other specified abnormal findings of blood chemistry; D64.9 Anemia, unspecified | CPT/HCPCS: 74183; A9575 ==

== ENCOUNTER 2024-01-30 05:45 | Inpatient (IN) | payer MEDICARE, OTHER, SELFPAY ==
[2024-01-29 23:24] VITALS: BP 109/69
[2024-01-30] VITALS (14 sets, daily range): BP systolic 89–116; BP diastolic 50–84; BMI 25.8
--- NOTE | 2024-01-30 00:31 | ED.GENMED ---
History of Present Illness
General
Chief Complaint: Swelling
Source: patient
Exam Limitations: none
Time Seen by Provider: 01/30/24 00:16
Travel History
Have you had any contact with someone who has COVID-19?: No
Do you have any symptoms of coronavirus? Fever > 100 degrees, chills, cough, shortness of breath, sore throat, loss of taste or smell, muscle aches, or headache?: No
History of Present Illness
History of Present Illness:
This is a 58 year old female that comes in with c/o lower leg swelling. States that last night she noticed some swelling. Then this morning the swelling was worse and she took Lasix 40mg. State that she was weighing 127 a few days ago and now she is
146 pounds. States that she has had chills, abd pain, nasuea, diarrhea, headache and dizziness on and off. Denies any fever, chest pain, SOB, vomiting, urinary burning
Past History
Past History
ED Past Medical History: Asthma, CAD, CHF, COPD, Fibromyalgia, GERD, HTN, NIDDM, Hypothyroidism, Psychiatric (Anxiety, Depression), Other (Diabetes, Migraines, Neuropathy, Arms and leg numbness, Restless leg syndrome, Sleep apnea, Ideopathic edema
Diverticulitis, Hiatal hernia, IBS, Gastroporesis, ) and Other (Endometriosis, Uterine fibroid, PCOS, Eczema, Macular degeneration, Iron Def anemia, Pancreatic enzyme insufficiency, )
ED Past Surgical History: Cholecystectomy, Gynecological (Ovarian cyst surgery X 3), Orthopedic (Bilateral knee surgery, ), Tonsilectomy (and adenoids) and Other (Laparoscopies, Duodenal switch , Cataracts, Hernia repair, )
Social History
Tobacco: Non-smoker
Alcohol: None
Drug: None
Personal:
Living: with family
Family History
Family History: Diabetes
Review of Systems
Review of Systems
All Other Systems: ROS reviewed and negative except as documented in HPI and ROS
Constitutional: Reports weight gain and chills; Denies fever
EENT: Reports no symptoms
Respiratory: Reports no symptoms; Denies cough or trouble breathing
Cardiac: Reports no symptoms; Denies chest pain
ABD/GI: Reports abdominal pain, nausea and diarrhea; Denies vomiting
: Reports no symptoms; Denies dysuria, frequency or urgency
Musculoskeletal: Reports edema (Bilateral leg edema)
Skin: Reports no symptoms
Neurological: Reports dizzy (On and off) and headache
Psychiatric: Reports no symptoms
Phy Exam
General Physical Exam
General Presentation: no apparent distress
General age: appears stated age
General Skin: warm and dry
General Habitus: normal
General Mental: alert
General Hydration: appears well hydrated
ENT Exam
ENT Exam: TM's normal, pharynx normal and neck supple
Eye Exam
Eye Exam: EOMI
Cardiovascular Exam
Cardiovascular Exam: regular rate/rhythm and normal peripheral pulses
Pulmonary Exam
Pulmonary Exam: lungs clear, no respiratory distress, no rales, chest non tender, no crackles, no rhonchi, no wheezing and no cough
Gastrointestinal Exam
Gastrointestinal Exam: normal bowel sounds, soft, no organomegaly, no pulsatile mass, non distended and tender (Left sided abd tenderness with palpation)
Musculoskeletal Exam
Musculoskeletal Exam: full ROM and edema (Bilateral lower leg edema, Nonpitting)
Skin Exam
Skin Exam: normal color, warm/dry, no rash and no petechia
Psychiatric Exam
Psychiatric Exam: normal mood/affect
Scores
Heart Failure Risk
Heart Failure Risk Score: Yes
History of Stroke or TIA: No
History of intubation for respiratory distress: No
Heart rate on ED arrival >/= 110: No
SaO2 <90% on arrival on room air: No
HR >/=110 during 3min walk test (or too ill to perform test): No
ECG has acute ischemic changes: No
Urea >/=12mmol/L (BUN 33.6mg/dL): No
Serum CO2>/=35mmol/L: No
Troponin I or T elevated to MT Level (0.4mg/dL): No
NT-proBNP >/=5,000ng/L (5,000pg/ml): No
HF Risk Score: 0
Admission Status: LOW RISK 2.8% Consider discharge to home with f/u visit to PCP/Trade Manager
Course
Orders/Labs/Results
Orders:
Orders
01/29/24 23:21
EKG [Electrocardiogram (*1)] Urgent
Reason for Study: Heart Failure, Left
EKG- Treatment ONCE
01/30/24 00:08
Cardiac Monitoring- Treatment ONCE
IV Insert/Care/Rem.- Treatment PRN
CR Chest - 2 Views Urgent
Comment:
Reason For Exam: respiratory distress
01/30/24 00:25
Complete Blood Count/With Diff Urgent
Comprehensive Metabolic Panel Urgent
NT-proBNP Urgent
Troponin I Urgent
01/30/24 00:31
US Periph Venous LOWER Ext Kg Urgent
Comment:
Reason For Exam: Lower leg edema
01/30/24 00:33
CT Abd/pelvis W Iv Cont Urgent
Comment:
Reason For Exam: Left sided abd pain
Lactated Ringers [Lr] 500 ml IV BOLUS
01/30/24 01:32
Potassium Chloride [KCl] 40 meq Dextrose 5%/Water 250 ml [D5w] 250 ml IV NOW
Abnormal Lab Results
01/30/24
00:25
RBC 2.74 L 10^6/uL
(4.20-5.40)
Hgb 8.4 L g/dL
(12.0-16.0)
Hct 23.5 L %
(37.0-47.0)
Abs Immat Gran (auto) 0.1 H 10^3/uL
(0-0.05)
Absolute Monos (auto) 0.7 H 10^3/uL
(0.1-0.6)
Immature Gran % 1.1 H %
(0-0.5)
Monocytes % 9.7 H %
(1.7-9.3)
Potassium 2.4 L* mmol/L
(3.5-5.1)
Creatinine 1.2 H mg/dL
(0.6-1.0)
Calcium 7.6 L mg/dl
(8.4-10.2)
AST 47 H U/L
(14-36)
ALT 37 H U/L
(0-35)
Total Protein 5.8 L g/dl
(6.3-8.2)
Albumin 3.0 L g/dl
(3.5-5.0)
01/30/24 00:25
01/30/24 00:25
H/H low, Hypokalemia, Cr slightly elevated. AST/ALT mildly elevated. Total protein low. Albumi low. Troponin 0.014, Pro-BNP 1120
Vital Signs
Initial and Last Documented VS:
Initial Vital Signs
Temp Pulse Resp BP Pulse Ox
98.3 F 98 15 109/69 100
01/29/24 23:24 01/29/24 23:24 01/29/24 23:24 01/29/24 23:24 01/29/24 23:24
Last Documented Vital Signs
Temp Pulse Resp BP Pulse Ox
98.3 F 83 14 98/63 100
01/29/24 23:24 01/30/24 02:45 01/30/24 02:45 01/30/24 01:00 01/30/24 01:30
MDM/Problems Addressed
Differential Diagnosis Includes:
Diverticulitis, Chronic Idiopathic edema, CHF
MDM/Problems Addressed:
This is a 58 year old female that comes in with c/o bilateral leg swelling and weight gain. States that she notifed this some last night and then today it was worse. Patient took Lasix 40mg this morning. Stats that she also has abd pain on the left
sided which she noticed lately.
Will get labs, CT abd/pelvis and get US.
Back into see patient. Explained that her US are negative for DVT and her chest X-ray is negative for CHF. However, her potassium is very low and with the leg edema this will need to be replaced as they use Lasix to help decrease the edema. CT is
still pending to help r/o any acute disease of the abd. Will admit. Hospitalist notified.
Chronic conditions affecting care:
Idiopathic edema
Acute Exacerbation and/or Progression of Chronic Illness:
Idiopathic edema
*Radiology
Radiology exam reviewed: preliminary read by ED provider (Chest- Negative for active disease), radiology read reviewed (Ct night hawk- NO acute abnormality within the abdomen or pelvis. No bowel obstruction. Status, post cholecystectomy. Normal
appendix. Incidentals: Moderate stool burden. Diverticulosis without evidence for diverticulitis. No obstructive uropathy. No hepatic or pancreatic mass. Hepatic steatosis. No), all reviewed NAD by ED Provider (CT cont- No abdominal aortic aneurysm.
NO acute osseous abnormality. Moderate hiatal hernia. No acute abnormality within the visualized lungs. Bibasilar atelectasis. Diffuse anasarca. ) and other (Ultrasound negative for DVT bilaterally. )
*Pulse Oximetry
Patient hypoxic: no
*EKG
Interpreted by ED Provider?: Yes
Heart Rate: 81
Rate: normal
Rhythm: sinus
[place]: normal axis
Interval: normal interval
QRS Pattern: low voltage
Ischemia: no ischemia
*Machine Guide Base Winder Interpretation
Rate: normal
Heart Rate: 97
Rhythm: sinus
*Critical Care Note
Total Time (30-74mins, 75-104mins- exclusive of procedures): Not Applicable
ED Attending Note
-
Portions of this chart may have been created with voice recognition software.� Occasional wrong word or��sound alike� substitutions may have occurred due to the inherent limitations of voice recognition software.
Discharge Plan
Departure
Patient Disposition: Admit
Date of Disposition: 01/30/24
Time of Disposition: 03:04
Admit to: Telemetry
Presentation/result/management discussed w/ accepting MD/DO: Hospitalist
Condition: Good
Covid-19: Not Applicable
Discharge Problem:
Acute hypokalemia, Bilateral edema of lower extremity
Prescriptions:
No Action
albuterol sulfate 1 PUFF HFA aerosol inhaler
2 puff inhalation R Q4HPRN PRN (Reason: shortness of breath)
levothyroxine 50 MCG tablet
50 mcg PO DAILY@0700
diclofenac sodium [Voltaren] 100 GM gel
1 applic topical DAILYPRN PRN (Reason: BACK AND LEGS pain)
Patient Comments:
11/14/19: apply to b/l feet
ondansetron 4 MG tablet,disintegrating
4 mg PO Q8HPRN PRN (Reason: nausea)
omeprazole 40 MG capsule,delayed release(DR/EC)
40 mg PO DAILY
cyclobenzaprine 10 MG tablet
10 mg PO DAILY
docusate sodium 100 MG capsule
100 mg PO DAILYPRN PRN (Reason: constipation)
bisacodyl 5 MG tablet,delayed release (DR/EC)
15 mg PO DAILYPRN PRN (Reason: constipation)
fluticasone propionate 1 SPRAY spray,suspension
2 spray intranasal DAILY PRN (Reason: congestion)
multivitamin Tablet
1 tab PO DAILY
Mounjaro 15 mg/0.5 mL Pen Injector
15 mg SC MO
Hold Instructions: Hold until instructed to take it again by your provider
Rx Instructions:
Q
zolpidem 10 mg Tablet
10 mg PO HSPRN PRN (Reason: insomnia)
famotidine 40 mg Tablet
40 mg PO HS
hydromorphone [Dilaudid] 4 mg Tablet
4 mg PO BIDPRN PRN (Reason: severe pain)
cyclobenzaprine 10 mg Tablet
20 mg PO DAILY@1999
ropinirole 4 mg Tablet
4 mg PO HS
bupropion HCl 150 mg tablet extended release 24 hr
150 mg PO DAILY
Orencia 50 mg/0.4 mL Syringe
1 mg SC MONTHLY
furosemide 40 mg tablet
40 mg PO DAILYPRN PRN (Reason: 2 lb weight gain)
sodium chloride 1,000 mg Tablet,Soluble
1,000 mg PO BID
potassium chloride 20 mEq packet
20 meq PO BID Qty: 30 0RF
Interventions
Interventions:
*Risk Screen - Suicide Last Done: 01/29/24 23:24
*General Assessment Last Done: 01/29/24 23:24
*Neglect/Abuse Screening Last Done: 01/29/24 23:24
ED- Cardiac Assessment Last Done: 01/30/24 00:29
ED- Pulmonary Assessment Last Done: 01/30/24 00:29
ED-Skin Assessment Last Done: 01/30/24 00:29
Discharge Date and Time
Print Language: UKRAINIAN
[2024-01-30 00:37] LABS: % Basophils 0.4 % (0-2); % Eosinophils 1.6 % (0-6); % Immature Granulocytes 1.1 % (0-0.5); % Lymphocytes 36.8 % (20.5-51.1); % Monocytes 9.7 % (1.7-9.3); % Neutrophils 50.4 % (42.2-75.2); Absolute Eosinophils 0.1 10^3/uL (0-0.7); Absolute Immature Granulocytes 0.1 10^3/uL (0-0.05); Absolute Lymphocytes 2.8 10^3/uL (1.2-3.4); Absolute Monocytes 0.7 10^3/uL (0.1-0.6); Absolute Neutrophils 3.8 10^3/uL (1.4-6.5); Hematocrit 23.5 % (37.0-47.0); Hemoglobin 8.4 g/dL (12.0-16.0); Mean Corp Hgb Conc. 35.7 g/dL (33.0-37.0); Mean Corpuscular Hgb 30.7 pg (27.0-31.0); Mean Corpuscular Volume 85.8 fL (81.0-99.0); Mean Platelet Volume 10.4 fL (7.4-10.4); Nucleated Red Blood Cells % 0 %; Platelet Count 266 10^3/uL (130-400); Red Blood Cell Count 2.74 10^6/uL (4.20-5.40); Red Cell Dist. Width 13.8 % (11.5-14.5); White Blood Cell Count 7.6 10^3/uL (4.8-10.8)
[2024-01-30] MEDS: LR 500 IV (00:52)
[2024-01-30 00:53] LABS: ALT (SGPT) 37 U/L (0-35); AST (SGOT) 47 U/L (14-36); Alkaline Phosphatase 72 U/L (38-126); Blood Urea Nitrogen 15 mg/dl (7-17); Calcium 7.6 mg/dl (8.4-10.2); Carbon Dioxide 26 mmol/L (22-30); Chloride 107 mmol/L (98-107); Estimated Creatinine Clearance 43 ml/min; Glucose 88 mg/dl (70-99); Potassium 2.4 mmol/L (3.5-5.1); Sodium 141 mmol/L (135-145); Total Bilirubin 0.8 mg/dl (0.2-1.3); Total Protein 5.8 g/dl (6.3-8.2); eGFR 53.13
[2024-01-30 00:57] LABS: Troponin I 0.014 ng/ml
[2024-01-30 01:15] LABS: NT-proBNP 1120 pg/ml
[2024-01-30] MEDS: KCL 270 MEQ IV (02:44)
[2024-01-30 05:20] LABS: Magnesium 1.6 mg/dl (1.6-2.3)
--- NOTE | 2024-01-30 05:20 | HPS.HSE ---
Family Physician
-
Family Physician: Roxy Hussein
Chief Complaint
-
Swelling
History of Present Illness
Patient is a 58y F with PMH significant for DM-II, CKD and hypothyroidism who presents to ED complaining of LE swelling. Patient states that she noted the swelling this evening when preparing for bed. She checked her weight and noted that she
had increased from 136 this AM to 142.6 this evening. Patient states that she was on her feet all day. She noted some tightness and heaviness in her legs for the past few days. This AM she took a dose of Lasix which she uses PRN.
Patient denies any chest pain, dyspnea, fevers or chills.
Her recent medical history is significant for GI issues - N/V/D for the past several months.
She was hospitalized here in September for hypokalemia due to GI losses.
Patient recently completed EGD / colonoscopy (01/25/24) which were both unremarkable. She was started on Zenpep on Wednesday for suspected pancreatic insufficienct.
Patient reports that her diarrhea and emesis have improved after Zenpep and Benefiber use.
Medical History
Past Medical History
Past Medical History: Reports Other
Additional Past Medical History:
Dilated Cardiomyopathy - Resolved
Diabetes Mellitus, Type II
CKD Stage III
Hypothyroidism
Anxiety / Depression / Insomnia
GERD / Erosive Esophagitis
Rheumatoid Arthritis
Fibromyalgia
Restless Leg Syndrome
Past Surgical History: Reports Other
Additional Past Surgical History:
Bariatric Surgery - Duodenal Switch
Cholecystectomy
Right Hand Surgery
Knee Arthroscopy
Social History
Tobacco: Non-smoker
Alcohol: None
Drug: None
Family History
Family History: Not pertinent
Allergies / Home Medications
Allergies reflects when Allergies were last updated in [facility].
Home Medications with original date entered in [facility]
Allergy/Medication List:
Allergies
Allergy/AdvReac Type Severity Reaction Status Date / Time
cat dander Allergy Shortness Verified 10/20/23 15:55
of Breath
dog dander Allergy Shortness Verified 10/20/23 15:55
of Breath
grass pollen Allergy Shortness Verified 10/20/23 15:55
of Breath
house dust Allergy Shortness Verified 10/20/23 15:55
of Breath
house dust mite Allergy Shortness Verified 10/20/23 11:16
of Breath
shellfish derived Allergy Nausea / Verified 10/20/23 15:55
Vomiting
Sulfa (Sulfonamide Allergy Nausea / Verified 10/20/23 15:55
Antibiotics) Vomiting
hardwood trees Allergy Shortness Uncoded 10/20/23 11:16
of Breath
Home Medications
albuterol sulfate 90 mcg/actuation aerosol inhaler 2 puff inhalation R Q4HPRN PRN shortness of breath 04/10/19
diclofenac sodium 1 % topical gel (Voltaren) 1 applic topical DAILYPRN PRN BACK AND LEGS pain 10/05/19
levothyroxine 50 mcg tablet 50 mcg PO DAILY@0700 Thyroid 10/05/19
ondansetron 4 mg disintegrating tablet 4 mg PO Q8HPRN PRN nausea 10/05/19
bisacodyl 5 mg tablet,delayed release 15 mg PO DAILYPRN PRN constipation 02/27/21
cyclobenzaprine 10 mg tablet 10 mg PO DAILY 02/27/21
docusate sodium 100 mg capsule 100 mg PO DAILYPRN PRN constipation 02/27/21
omeprazole 40 mg capsule,delayed release 40 mg PO DAILY Gastrointestinal Issue 02/27/21
fluticasone propionate 50 mcg/actuation nasal spray,suspension 2 spray intranasal DAILY PRN congestion 03/05/21
multivitamin 1 tab PO DAILY Supplement 04/30/23
tirzepatide 15 mg/0.5 mL subcutaneous pen injector (Mounjaro) 15 mg SC MO Diabetes 04/30/23
zolpidem 10 mg tablet 10 mg PO HSPRN PRN insomnia 04/30/23
famotidine 40 mg tablet 40 mg PO HS Gastrointestinal Issue 05/05/23
hydromorphone 4 mg tablet (Dilaudid) 4 mg PO BIDPRN PRN severe pain 05/05/23
abatacept 50 mg/0.4 mL subcutaneous syringe (Orencia) 1 mg SC MONTHLY 10/20/23
bupropion HCl 150 mg 24 hr tablet, extended release 150 mg PO DAILY Mental Health 10/20/23
cyclobenzaprine 10 mg tablet 20 mg PO DAILY@199910/20/23
furosemide 40 mg tablet 40 mg PO DAILYPRN PRN 2 lb weight gain 10/20/23
ropinirole 4 mg tablet 4 mg PO HS 10/20/23
sodium chloride 1,000 mg soluble tablet 1,000 mg PO BID 10/20/23
potassium chloride 20 mEq oral packet 20 meq PO BID #30 ea 10/22/23
Review of Systems
-
History Source: Patient
A 12 point ROS was completed and negative except as noted: Yes
Constitutional: Reports Weight Gain; Denies Fever or Chills
Respiratory: Denies Cough or Trouble Breathing
Cardiac: Denies Chest Pain or Palpitations
Abdomen/GI: Denies Abdominal Pain, Nausea, Vomiting or Diarrhea
: Denies Dysuria or Frequency
Musculoskeletal: Reports Edema; Denies Joint Pain
Neurological: Denies Dizzy or Headache
Psych: Denies Depression or Anxiety
Physical Exam
Vital Signs
Vital Signs
Temp Pulse Resp BP Pulse Ox
98.3 F 83 12 100/70 100
01/29/24 23:24 01/30/24 04:00 01/30/24 04:00 01/30/24 04:00 01/30/24 01:30
Physical Exam
General: Other (58y F in no acute distress.)
HEENT: Moist mucous membranes and PERRLA
Respiratory: Clear; No Wheezes, Rales or Rhonchi
Cardiac: S1/S2 and Regular Rhythm; No Murmur
GI: Soft, Non Distended, Normal Bowel Sounds and Other (Mild, diffuse tenderness.)
Musculoskeletal: No Clubbing, No Cyanosis and Other (2+ pitting edema b/l LEs.)
Neuro: AO x 3
Laboratory Results
-
01/30/24 00:25
01/30/24 00:25
Laboratory Results
Total Bilirubin 0.8 mg/dl (0.2-1.3) 01/30/24 00:25
AST 47 U/L (14-36) H 01/30/24 00:25
ALT 37 U/L (0-35) H 01/30/24 00:25
Alkaline Phosphatase 72 U/L (38-126) 01/30/24 00:25
Troponin I 0.014 ng/ml 01/30/24 00:25
Impression/Plan
-
A/P: Patient is a 58y F with PMH significant for DM-II, CKD and hypothyroidism who presents to ED complaining of LE swelling and weight gain.
Edema / Anasarca
- Admit for further evaluation and treatment.
- CXR clear, no hypoxemia. Check Echo.
- ? edema secondary to protein losses / renal disease.
- Check protein:creatinine ratio.
- May benefit from IV diuresis - but will need to replete potassium first and there are no urgent needs for diuresis such as hypoxemia, resp distress, etc.
- Continue outpatient spironolactone dose.
Hypokalemia
- ? secondary to GI losses - though these have improved over the past week after addition of Benefiber and Zenpep.
- Check Mg level and keep > 2.
- Hold PPI for now to avoid malabsorption issues.
- Replace with oral potassium and adjust dose / frequency for adequate replacement.
- Follow for improvement.
- Consider Nephrology evaluation if additional issues.
CKD III
- Stable. Renal function is at / near known baseline.
- Check protein:creatinine ratio as noted above.
- Follow for changes.
DM-II
- Stable. No DM meds included in list from patient - will need formal reconciliation in AM to verify.
- Follow glucose and cover with SSI as needed.
- Update A1C.
Anemia of Chronic Disease
- Hgb slightly decreased from usual baseline.
- Follow for changes - especially with eventual diuresis.
- Prior iron studies were c/w chronic disease.
- No evidence of acute blood loss, etc.
Anxiety / Depression / Insomnia
- Continue bupropion.
DVT Prophylaxis: SCDs
Code Status: Full
[2024-01-30] MEDS: KCL ELIXIR 40 MEQ PO (05:28)
[2024-01-30 07:32] LABS: TSH Reflex To Free T4 3.44 uIU/ml (0.47-4.68)
[2024-01-30 08:23] LABS: Glucose - Point of Care 86 mg/dl (70-99)
[2024-01-30] MEDS: SYNTHROID 50 MCG PO (08:39)
[2024-01-30] MEDS: KCL 40 MEQ PO ×3 (08:39→19:44)
[2024-01-30] MEDS: ALDACTONE PO (08:41)
[2024-01-30] MEDS: ZENPEP DELAYED RELEASE CAPSULE 3 CAPSULE PO ×3 (08:42→18:46)
[2024-01-30] MEDS: WELLBUTRIN XL (24 hour extended release) 150 MG PO (10:22)
[2024-01-30] MEDS: NOVOLOG FLEXPEN-LOW RESISTANCE SC ×2 (10:23→18:44)
--- NOTE | 2024-01-30 10:37 | W.PN.UPDATE ---
Update Note
Progress Note Update
Non-billable note
Chart/images/lab reviewed
Anasarca - reason unclear. low albumin of 3, not extremely low. Does have gastric bypass/weight loss sx and may explain some hypoalbuminemia. Patient also had systolic heart failure from nonischemic cardiomyopathy in 2013 with EF of 25% which has
recovered. Repeat echocardiogram has been ordered.
Question of proteinuria as well although repeat UA pending and last UA in April 21 was showing no albumin and UA.
Patient will be provided dose of IV Lasix once potassium is in acceptable range. Repeat BMP check has been ordered.
Chronic pain and narcotic dependence -patient has been on Dilaudid 8 mg twice daily for over 10 years now, was slowly being weaned off and patient symptoms were uncontrolled with 2 mg twice daily Dilaudid, currently on 4 mg twice daily. I have
discussed with patient that she is at high risk of complications/respiratory
arrest and sudden with simultaneous use of zolpidem and she understands. Continue home regimen for now with as needed naloxone ordered for use while in hospital.
Severe hypokalemia -patient have on and off diarrhea from known pancreatic atrophy. Symptoms have been controlled after initiation of Zenpep and Benefiber. To be continued for now. Of note magnesium checked and was 1.6 yesterday.
[2024-01-30 12:16] LABS: Glucose - Point of Care 223 mg/dl (70-99)
[2024-01-30] MEDS: DILAUDID 4 MG PO (12:32)
[2024-01-30] MEDS: IMODIUM 2 MG PO (12:32)
[2024-01-30] MEDS: NOVOLOG FLEXPEN-LOW RESISTANCE 2 UNITS SC (13:26)
[2024-01-30] MEDS: QUESTRAN 4 GRAM PO (13:27)
[2024-01-30 16:26] LABS: Blood Urea Nitrogen 16 mg/dl (7-17); Calcium 7.2 mg/dl (8.4-10.2); Carbon Dioxide 27 mmol/L (22-30); Chloride 107 mmol/L (98-107); Estimated Creatinine Clearance 47 ml/min; Glucose 171 mg/dl (70-99); Potassium 4.1 mmol/L (3.5-5.1); Sodium 139 mmol/L (135-145); eGFR 58.97
[2024-01-30 16:29] LABS: Urine Protein 8 mg/dl
[2024-01-30 16:43] LABS: Protein/creatinine Ratio 0.1
[2024-01-30] MEDS: TUMS 2 TABLET PO (16:58)
[2024-01-30 18:39] LABS: Glucose - Point of Care 148 mg/dl (70-99)
[2024-01-30] MEDS: LOVENOX 40 MG SC (18:46)
[2024-01-30] MEDS: LASIX 40 MG IV (19:44)
[2024-01-30] MEDS: QUESTRAN PO (21:51)
[2024-01-30 22:01] LABS: Glucose - Point of Care 202 mg/dl (70-99)
[2024-01-31] VITALS (8 sets, daily range): BP systolic 84–109; BP diastolic 58–68; BMI 25.9; BMI 25.8
[2024-01-31] MEDS: AMBIEN 10 MG PO ×2 (00:05→23:45)
[2024-01-31 06:50] LABS: Hematocrit 23.3 % (37.0-47.0); Mean Corp Hgb Conc. 34.3 g/dL (33.0-37.0); Mean Corpuscular Hgb 30.4 pg (27.0-31.0); Mean Corpuscular Volume 88.6 fL (81.0-99.0); Mean Platelet Volume 10.7 fL (7.4-10.4); Platelet Count 223 10^3/uL (130-400); Red Blood Cell Count 2.63 10^6/uL (4.20-5.40); Red Cell Dist. Width 14.4 % (11.5-14.5); White Blood Cell Count 4.5 10^3/uL (4.8-10.8)
[2024-01-31 07:12] LABS: Blood Urea Nitrogen 16 mg/dl (7-17); Calcium 7.7 mg/dl (8.4-10.2); Carbon Dioxide 29 mmol/L (22-30); Chloride 105 mmol/L (98-107); Estimated Creatinine Clearance 47 ml/min; Glucose 77 mg/dl (70-99); Potassium 3.7 mmol/L (3.5-5.1); Sodium 139 mmol/L (135-145); eGFR 58.97
[2024-01-31] MEDS: SYNTHROID 50 MCG PO (07:48)
[2024-01-31] MEDS: WELLBUTRIN XL (24 hour extended release) 150 MG PO (07:49)
[2024-01-31 08:42] LABS: Glucose - Point of Care 73 mg/dl (70-99)
[2024-01-31] MEDS: NOVOLOG FLEXPEN-LOW RESISTANCE SC ×2 (08:44→18:48)
[2024-01-31] MEDS: ALDACTONE 12.5 MG PO (08:47)
[2024-01-31] MEDS: QUESTRAN PO ×2 (09:34→20:07)
[2024-01-31] MEDS: ZENPEP DELAYED RELEASE CAPSULE 3 CAPSULE PO ×3 (09:34→18:48)
[2024-01-31] MEDS: ZOFRAN 4 MG IV ×2 (12:18→22:32)
[2024-01-31 12:26] LABS: Glucose - Point of Care 169 mg/dl (70-99)
--- NOTE | 2024-01-31 12:46 | W.PN.HOSP.TC ---
Today's Communication/Plan
-
IV diuresis while here
Echo noted
Home in 24-48 hours.
Assessment / Plan
Assessment / Plan
A/P: Patient is a 58y F with PMH significant for DM-II, CKD and hypothyroidism who presents to ED complaining of LE swelling and weight gain.
Bilateral lower extremity edema like lymphedema
- CXR clear, no hypoxemia.
- Echocardiogram with normal biventricular size and systolic function with no regional wall motion abnormality. Normal diastolic function. Aortic sclerosis without stenosis. Mild tricuspid regurgitation. PASP . No significant change
compared to echo done on 09/18/2022.
- Check protein:creatinine ratio-normal
- May benefit from IV diuresis -
- Continue outpatient spironolactone dose.
Hypokalemia
- ? secondary to GI losses - though these have improved over the past week after addition of Benefiber and Zenpep.
- Check Mg level and keep > 2.
- Hold PPI for now to avoid malabsorption issues.
- Replace with oral potassium and adjust dose / frequency for adequate replacement.
- Follow for improvement.
CKD III
- Stable. Renal function is at / near known baseline.
- Check protein:creatinine ratio as noted above.
- Follow for changes.
DM-II
- Stable. No DM meds included in list from patient - will need formal reconciliation in AM to verify.
- Follow glucose and cover with SSI as needed.
- Update A1C.
Anemia of Chronic Disease
- Hgb slightly decreased from usual baseline.
- Follow for changes - especially with eventual diuresis.
- Prior iron studies were c/w chronic disease.
- Low folate-start po folic acid
- No evidence of acute blood loss, etc.
Anxiety / Depression / Insomnia
- Continue bupropion.
DVT Prophylaxis: SCDs
Code Status: Full
Anticipated Discharge: Within 24 hours
Subjective/Interval History
-
Date of Service: January 31, 2024
states of mild improvement in LE edema
Objective Data
-
Labs:
Laboratory Results
01/31/24
06:14
WBC 4.5 L
Hgb 8.0 L
Hct 23.3 L
Plt Count 223
Sodium 139
Potassium 3.7
Chloride 105
Carbon Dioxide 29
BUN 16
Creatinine 1.1 H
Glucose 77
Calcium 7.7 L
Vital Signs:
Vital Signs
Temp Pulse Resp BP Pulse Ox
98.5 F 85 18 107/67 100
01/31/24 11:50 01/31/24 11:50 01/31/24 11:50 01/31/24 11:50 01/31/24 11:50
I&O
01/30/24 01/31/24 02/01/24
06:59 06:59 06:59
Intake Total 500 / 500
Output Total 1200 / 1200
Balance -700 / -700
Physical Exam
-
General: Well Developed and No Apparent Distress
HEENT: Normocephalic, Atraumatic and Moist Mucous Membranes
Respiratory: Clear to Auscultation
Cardiac: Regular Rhythm and S1/S2; Negative Murmur, Rub or Gallop
GI: Soft, Nontender, Nondistended and Normal Bowel Sounds; Negative Organomegaly
Rectal: Deferred by Provider
Musculoskeletal: No Clubbing, No Cyanosis, No Edema, Edema, Right Lower Extrem and Edema, Left Lower Extrem
Skin: Negative Rash
Neuro: Awake, No Motor Deficits and Nonfocal/Grossly Intact
Psych: Calm
Data Reviewed
-
Total Time Spent with Patient (in minutes): 55
[2024-01-31] MEDS: LASIX 40 MG IV (13:21)
[2024-01-31] MEDS: NOVOLOG FLEXPEN-LOW RESISTANCE 1 UNITS SC (13:21)
[2024-01-31] MEDS: FOLVITE 1 MG PO (13:21)
[2024-01-31 13:42] LABS: Iron 84 ug/dl (37-170)
[2024-01-31 13:52] LABS: Percent Saturation 68 % (20-50); Total Iron Binding Capacity 122 ug/dl (265-497)
[2024-01-31 14:38] LABS: Glycohemoglobin (HgbA1c) 5.5 % (4.0-5.6)
[2024-01-31] MEDS: TUMS 2 TABLET PO ×2 (14:59→22:28)
[2024-01-31] MEDS: DILAUDID 4 MG PO (14:59)
[2024-01-31 15:11] LABS: Folate 6.3 ng/ml (2.76-20); Vitamin B12 603 pg/ml (239-931)
[2024-01-31] MEDS: LOVENOX 40 MG SC (17:52)
[2024-01-31 18:49] LABS: Glucose - Point of Care 92 mg/dl (70-99)
[2024-01-31] MEDS: KCL 40 MEQ PO (20:05)
[2024-01-31 22:44] LABS: Glucose - Point of Care 147 mg/dl (70-99)
[2024-01-31] MEDS: PROTONIX 40 MG PO (23:27)
[2024-01-31] MEDS: MAALOX 30 ML PO (23:28)
[2024-02-01] VITALS (11 sets, daily range): BP systolic 81–115; BP diastolic 53–75; PULSE 66–113; BMI 24.3; BMI 24.6
[2024-02-01] MEDS: SYNTHROID 50 MCG PO (06:32)
--- NOTE | 2024-02-01 07:00 | PTCARENOTE ---
Pt c/o of lightheadedness and faint feeling upon ambulating to bathroom. BP 89/54 HR 63. ESTEFANY Velazquez notified.
[2024-02-01 07:58] LABS: Glucose - Point of Care 80 mg/dl (70-99)
[2024-02-01] MEDS: NOVOLOG FLEXPEN-LOW RESISTANCE SC ×2 (08:31→16:58)
[2024-02-01] MEDS: ZENPEP DELAYED RELEASE CAPSULE 3 CAPSULE PO ×3 (08:41→17:02)
[2024-02-01] MEDS: ALDACTONE PO (08:42)
[2024-02-01] MEDS: WELLBUTRIN XL (24 hour extended release) 150 MG PO (08:42)
[2024-02-01] MEDS: QUESTRAN PO ×2 (08:43→20:19)
[2024-02-01] MEDS: LASIX IV (09:36)
[2024-02-01] MEDS: KCL PO (09:36)
[2024-02-01] MEDS: FOLVITE 1 MG PO (10:44)
[2024-02-01 11:45] LABS: Glucose - Point of Care 180 mg/dl (70-99)
[2024-02-01] MEDS: NOVOLOG FLEXPEN-LOW RESISTANCE 1 UNITS SC (11:55)
[2024-02-01 12:28] LABS: % Basophils 0.4 % (0-2); % Eosinophils 1.5 % (0-6); % Immature Granulocytes 0.2 % (0-0.5); % Lymphocytes 35.6 % (20.5-51.1); % Monocytes 9.6 % (1.7-9.3); % Neutrophils 52.7 % (42.2-75.2); Absolute Eosinophils 0.1 10^3/uL (0-0.7); Absolute Lymphocytes 1.6 10^3/uL (1.2-3.4); Absolute Monocytes 0.4 10^3/uL (0.1-0.6); Absolute Neutrophils 2.4 10^3/uL (1.4-6.5); Hematocrit 24.2 % (37.0-47.0); Hemoglobin 7.8 g/dL (12.0-16.0); Mean Corp Hgb Conc. 32.2 g/dL (33.0-37.0); Mean Corpuscular Hgb 30.2 pg (27.0-31.0); Mean Corpuscular Volume 93.8 fL (81.0-99.0); Mean Platelet Volume 10.6 fL (7.4-10.4); Nucleated Red Blood Cells % 0 %; Platelet Count 212 10^3/uL (130-400); Red Blood Cell Count 2.58 10^6/uL (4.20-5.40); Red Cell Dist. Width 14.3 % (11.5-14.5); White Blood Cell Count 4.6 10^3/uL (4.8-10.8)
[2024-02-01 12:53] LABS: ALT (SGPT) 35 U/L (0-35); AST (SGOT) 50 U/L (14-36); Albumin 2.3 g/dl (3.5-5.0); Alkaline Phosphatase 63 U/L (38-126); Blood Urea Nitrogen 16 mg/dl (7-17); Calcium 7.5 mg/dl (8.4-10.2); Carbon Dioxide 34 mmol/L (22-30); Chloride 101 mmol/L (98-107); Estimated Creatinine Clearance 47 ml/min; Glucose 134 mg/dl (70-99); Sodium 137 mmol/L (135-145); Total Bilirubin 0.3 mg/dl (0.2-1.3); Total Protein 4.8 g/dl (6.3-8.2); eGFR 58.97
--- NOTE | 2024-02-01 13:33 | W.PN.HOSP.TC ---
Today's Communication/Plan
-
urine collection ongoing
hold lasix as with hypotension
Assessment / Plan
Assessment / Plan
A/P: Patient is a 58y F with PMH significant for DM-II, CKD and hypothyroidism who presents to ED complaining of LE swelling and weight gain.
Bilateral lower extremity lymphedema likely 2/2 concern for liver pathology
- CXR clear, no hypoxemia.
- Echocardiogram with normal biventricular size and systolic function with no regional wall motion abnormality. Normal diastolic function. Aortic sclerosis without stenosis. Mild tricuspid regurgitation. PASP . No significant change
compared to echo done on 09/18/2022.
- Check protein:creatinine ratio-normal
- May benefit from IV diuresis - however with symptomatic hypotension and needed to be held
- Continue outpatient spironolactone dose if BP can tolerate it
- Patient has underwent outpatient extensive workup for anemia during which time as concern for liver pathology/infiltration with elevated ferritin and low ceruplasmin level. 24h urine gavin studies ordered and pending. Can eventually consider
liver biopsy if further workup inconclusive.
Hypokalemia
- ? secondary to GI losses - though these have improved over the past week after addition of Benefiber and Zenpep.
- Check Mg level and keep > 2.
- Hold PPI for now to avoid malabsorption issues.
- Replace with oral potassium and adjust dose / frequency for adequate replacement.
- Follow for improvement.
CKD III
- Stable. Renal function is at / near known baseline.
- Check protein:creatinine ratio as noted above.
- Follow for changes.
Hyperglycemia
-A1C at 5.5
Anemia of Chronic Disease
- Hgb slightly decreased from usual baseline.
- Follow for changes - especially with eventual diuresis.
- Prior iron studies were c/w chronic disease.
- Low folate-start po folic acid
- No evidence of acute blood loss, etc. Hemolysis panel ordered
Anxiety / Depression / Insomnia
- Continue bupropion.
DVT Prophylaxis: SCDs
Code Status: Full
Anticipated Discharge: Within 24 hours
Subjective/Interval History
-
Date of Service: February 01, 2024
This morning with hypotension and patient was symptomatic
Objective Data
-
Labs:
Laboratory Results
02/01/24
12:04
WBC 4.6 L
Hgb 7.8 L
Hct 24.2 L
Plt Count 212
Sodium 137
Potassium 4.0
Chloride 101
Carbon Dioxide 34 H
BUN 16
Creatinine 1.1 H
Glucose 134 H
Calcium 7.5 L
Total Bilirubin 0.3
AST 50 H
ALT 35
Alkaline Phosphatase 63
Vital Signs:
Vital Signs
Temp Pulse Resp BP Pulse Ox
98.4 F 80 16 91/61 100
02/01/24 11:00 02/01/24 11:00 02/01/24 11:00 02/01/24 11:00 02/01/24 11:00
I&O
01/31/24 02/01/24 02/02/24
06:59 06:59 06:59
Intake Total 500 / 500
Output Total 1200 / 1200
Balance -700 / -700
Physical Exam
-
General: Well Developed and No Apparent Distress
HEENT: Normocephalic, Atraumatic and Moist Mucous Membranes
Respiratory: Clear to Auscultation
Cardiac: Regular Rhythm and S1/S2; Negative Murmur, Rub or Gallop
GI: Soft, Nontender, Nondistended and Normal Bowel Sounds; Negative Organomegaly
Rectal: Deferred by Provider
Musculoskeletal: No Clubbing, No Cyanosis, No Edema, Edema, Right Lower Extrem (significant improvement in edema ) and Edema, Left Lower Extrem (significant improvement in edema )
Skin: Negative Rash
Neuro: Awake, No Motor Deficits and Nonfocal/Grossly Intact
Psych: Calm
[2024-02-01] MEDS: TUMS 2 TABLET PO (14:28)
[2024-02-01] MEDS: ProAmatine 5 MG PO (14:28)
[2024-02-01] MEDS: PROTONIX 40 MG PO (14:28)
--- NOTE | 2024-02-01 15:01 | CON.ONC ---
Impression
Impression
leg swelling, h/o lymphedema and CHF
worsening anemia, normocytic
severe hepatic steatosis by MRI
elevated ferritin, hereditary hemochromatosis - compound heterozygous
h/o iron def related to weight loss surgery, prior iron infusions
Plan
Plan
Diuresis per primary team
Dr. 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 Martinez)
Has outpatient f/u with Dr. Martinez to review w/u
No deficiency of B12, folate, iron; no monoclonal protein noted on anemia w/u
Will check hemolysis panel; though noted normal bilirubin
Would heme check stool, ordered
Patient History
History of Present Illness
58 yo F, known to Dr Reinoso for work-up and management of anemia, with h/o iron deficiency in the setting of gastric bypass surgery, and now with elevated ferritin levels and compound heterozygous hemochromatosis ([id number]), currently
undergoing evaluation with Dr. Martinez, hepatology, for diffuse hepatic steatosis; presented with worsening leg swelling and weakness, worsening anemia. No signs of bleeding, no recent illness or infection.
She's been started on diuretics.
Dr Reinoso noted outpatient labs per Dr. Martinez showing low ceruloplasmin, which raised suspicion for Rusty's disease.
Prior w/u for anemia showed no Mspike or abnormal FLC ratio.
Past-Medical/Surgical History
Past Medical History
Past Medical History: Reports Other
Additional Past Medical History:
Dilated Cardiomyopathy - Resolved
Diabetes Mellitus, Type II
CKD Stage III
Hypothyroidism
Anxiety / Depression / Insomnia
GERD / Erosive Esophagitis
Rheumatoid Arthritis
Fibromyalgia
Restless Leg Syndrome
Past Surgical History: Reports Other
Additional Past Surgical History:
Bariatric Surgery - Duodenal Switch
Cholecystectomy
Right Hand Surgery
Knee Arthroscopy
Social History
Tobacco: Non-smoker
Alcohol: None
Drug: None
Family History
Family History: Not pertinent
Patient Medication
�Medication �Instructions �Recorded �Confirmed �Last Taken �Type
albuterol sulfate 90 mcg/actuation 2 puff inhalation R Q4HPRN PRN 04/10/19 01/30/24 05/10/22 History
aerosol inhaler shortness of breath
levothyroxine 50 mcg tablet 50 mcg PO DAILY@0700 Thyroid 10/05/19 01/30/24 10/19/23 History
ondansetron 4 mg disintegrating 4 mg PO Q8HPRN PRN nausea 10/05/19 01/30/24 2 Weeks Ago History
tablet ~10/06/23
bisacodyl 5 mg tablet,delayed 15 mg PO DAILYPRN PRN constipation 02/27/21 01/30/24 04/05/23 History
release
cyclobenzaprine 10 mg tablet 10 mg PO DAILY 02/27/21 01/30/24 10/19/23 History
docusate sodium 100 mg capsule 100 mg PO DAILYPRN PRN constipation 02/27/21 01/30/24 04/05/23 History
omeprazole 40 mg capsule,delayed 40 mg PO DAILY Gastrointestinal 02/27/21 01/30/24 10/19/23 History
release Issue
fluticasone propionate 50 2 spray intranasal DAILY PRN 03/05/21 01/30/24 11/28/22 History
mcg/actuation nasal congestion
spray,suspension
multivitamin 1 tab PO DAILY Supplement 04/30/23 01/30/24 10/19/23 History
zolpidem 10 mg tablet 10 mg PO HSPRN PRN insomnia 04/30/23 01/30/24 10/19/23 History
famotidine 40 mg tablet 40 mg PO HS Gastrointestinal Issue 05/05/23 01/30/24 10/19/23 History
hydromorphone 4 mg tablet 4 mg PO BIDPRN PRN severe pain 05/05/23 01/30/24 10/18/23 History
(Dilaudid)
abatacept 50 mg/0.4 mL 1 mg SC MONTHLY 10/20/23 01/30/24 10/06/23 History
subcutaneous syringe (Orencia)
bupropion HCl 150 mg 24 hr tablet, 150 mg PO DAILY Mental Health 10/20/23 01/30/24 10/19/23 History
extended release
cyclobenzaprine 10 mg tablet 20 mg PO DAILY@199910/20/23 01/30/24 10/19/23 History
furosemide 40 mg tablet 40 mg PO DAILYPRN PRN 2 lb weight 10/20/23 01/30/24 2 Weeks Ago History
gain ~10/06/23
ropinirole 4 mg tablet 4 mg PO HS 10/20/23 01/30/24 10/19/23 History
potassium chloride 20 mEq oral 20 meq PO BID #30 ea 10/22/23 01/30/24 Unknown Rx
packet
diclofenac sodium 1 % topical gel 1 ea topical DAILY PRN back and 01/30/24 01/30/24 Unknown History
leg pain
hydroxychloroquine 200 mg tablet 400 mg PO NOON 01/30/24 01/30/24 Unknown History
[id number] 3 cap PO MEALS 01/30/24 01/30/24 Unknown History
25,000-79,000-105,000 unit
capsule,delayed rel (Zenpep)
spironolactone 25 mg tablet 12.5 mg PO DAILY 01/30/24 01/30/24 Unknown History
Active Medications
Generic Name Dose Route Start Last Admin
Trade Name Freq PRN Reason Stop Dose Admin
Acetaminophen 650 mg 01/30/24 06:09
Acetaminophen 325 Mg Tablet PO 02/27/24 06:08
Q4HPRN PRN
Mild Pain / Temp > 101
Albuterol 2 puff 02/01/24 13:41
Albuterol Hfa [90 Mcg/Dose] Inhaler INH
R Q4HPRN PRN
shortness of breath
Protocol
Bupropion HCl 150 mg 01/30/24 08:00 02/01/24 08:42
Bupropion (24hr) Extended Release 150 Mg Tablet PO 02/27/24 07:59 150 mg
DAILY ERICH Administration
Calcium Carbonate 2 tablet 01/30/24 16:13 02/01/24 14:28
Calcium Carbonate 500 Mg (Regular-Strength) Chew Tablet PO 02/27/24 16:12 2 tablet
Q4HPRN PRN Administration
Heart burn
Cholestyramine Resin 4 gram 01/30/24 13:00 02/01/24 08:43
Cholestyramine 4 Gram Packet PO 02/27/24 12:59 Not Given
BID ERICH
Cyclobenzaprine HCl 10 mg 02/02/24 08:00
Cyclobenzaprine 10 Mg Tablet PO 03/01/24 07:59
DAILY ERICH
Cyclobenzaprine HCl 20 mg 02/01/24 20:00
Cyclobenzaprine 10 Mg Tablet PO 02/29/24 19:59
DAILY@2000 ERICH
Dextrose 12.5 grams 01/30/24 06:09
Dextrose 50% (0.5 Grams/Ml) 50 Ml Syringe IV 02/27/24 06:08
[id number] PRN
hypoglycemia
Protocol
Enoxaparin Sodium 40 mg 01/30/24 18:00 01/31/24 17:52
Enoxaparin Sodium 40 Mg/0.4 Ml Syringe SC 02/27/24 17:59 40 mg
QPM ERICH Administration
Famotidine 40 mg 02/01/24 22:00
Famotidine 40 Mg Tablet PO 02/29/24 21:59
HS ERICH
Folic Acid 1 mg 02/01/24 08:00 02/01/24 10:44
Folic Acid 1 Mg Tablet PO 02/29/24 07:59 1 mg
DAILY ERICH Administration
Glucagon 1 mg 01/30/24 06:09
Glucagon 1 Mg Vial IM 02/27/24 06:08
PRN PRN
hypoglycemia
Protocol
Hydromorphone HCl 4 mg 01/30/24 10:36 01/31/24 14:59
Hydromorphone 4 Mg Tablet PO 02/13/24 10:35 4 mg
[id number] PRN Administration
mod sev pain
Hydroxychloroquine Sulfate 400 mg 02/02/24 12:00
Hydroxychloroquine 200 Mg Tablet PO 03/01/24 11:59
NOON ERICH
Insulin Aspart 0 units 01/30/24 07:30 02/01/24 11:55
Insulin Aspart Low Resistance 300 Units/3 Ml Pen.Injctr SC 02/27/24 07:29 1 units
AC ERICH Administration
Protocol
Levothyroxine Sodium 50 mcg 01/30/24 07:00 02/01/24 06:32
Levothyroxine 50 Mcg Tablet PO 02/27/24 06:59 50 mcg
DAILY@0600 ERICH Administration
Loperamide HCl 2 mg 01/30/24 12:16 01/30/24 12:32
Loperamide 2 Mg Capsule PO 02/27/24 12:15 2 mg
Q4HPRN PRN Administration
Diarrhea
Midodrine 5 mg 02/01/24 08:01 02/01/24 14:28
Midodrine 5 Mg Tablet PO 02/29/24 08:00 5 mg
Q4HPRN PRN Administration
SBP<95
Multivitamins Therapeutic 1 tablet 02/02/24 08:00
Multivitamin Tablet PO 03/01/24 07:59
DAILY ERICH
Naloxone HCl 0.4 mg 01/30/24 10:36
Naloxone (0.4 Mg/Ml) 1 Ml Injection IV 02/27/24 10:35
ONCE PRN PRN
For RR< 8 or unresponsive
Ondansetron HCl 4 mg 01/30/24 06:09 01/31/24 22:32
Ondansetron 4 Mg/2 Ml Vial IV 02/27/24 06:08 4 mg
Q6HPRN PRN Administration
nausea and vomiting
Pancrelipase 3 capsule 01/30/24 08:00 02/01/24 12:15
Pancrelipase (Zenpep) Delayed Release Capsule PO 02/27/24 07:59 3 capsule
MEALS ERICH Administration
Pantoprazole Sodium 40 mg 02/01/24 14:30 02/01/24 14:28
Pantoprazole 40 Mg Delayed Release Tablet PO 02/29/24 14:29 40 mg
DAILY ERICH Administration
Potassium Chloride 20 meq 02/01/24 20:00
Potassium Chloride 20 Meq Powder Packet PO 02/29/24 19:59
BID ERICH
Sodium Chloride 0 flush 01/30/24 06:00
Sodium Chloride 0.9% (Flush) Syringe IV 02/27/24 05:59
PER PROTOCOL ERICH
Spironolactone 12.5 mg 01/30/24 08:00 02/01/24 08:42
Spironolactone 12.5 Mg Dose (1/2 Of 25 Mg Tablet) PO 02/27/24 07:59 Not Given
DAILY ERICH
Zolpidem Tartrate 10 mg 02/01/24 22:00
Zolpidem Tartrate 10 Mg Tablet PO 02/29/24 21:59
HSPRN PRN
Insomnia
Review of Systems
-
All Other Systems: Not reviewed unless documented
Physical Exam
-
General: No Apparent Distress and Comfortable
HEENT: Negative Jaundice
Cardiology: Normal Sinus Rhythm
Pulmonary: Clear
GI: Soft
Musculoskeletal: No Clubbing, No Cyanosis and No Edema
Neurology: Non Focal
Skin: Warm and Dry
Psych: Calm and Intact Judgement/Insight
Labs
Lab Results
WBC 4.6 10^3/uL (4.8-10.8) L 02/01/24 12:04
RBC 2.58 10^6/uL (4.20-5.40) L 02/01/24 12:04
Hgb 7.8 g/dL (12.0-16.0) L 02/01/24 12:
Hct 24.2 % (37.0-47.0) L 02/01/24 12:04
MCV 93.8 fL (81.0-99.0) 02/01/24 12:
MCH 30.2 pg (27.0-31.0) 02/01/24 12:04
MCHC 32.2 g/dL (33.0-37.0) L 02/01/24 12:
RDW 14.3 % (11.5-14.5) 02/01/24 12:04
Plt Count 212 10^3/uL (130-400) 02/01/24 12:04
MPV 10.6 fL (7.4-10.4) H 02/01/24 12:
Abs Immat Gran (auto) 0.0 10^3/uL (0-0.05) 02/01/24 12:
Absolute Neuts (auto) 2.4 10^3/uL (1.4-6.5) 02/01/24 12:04
Absolute Lymphs (auto) 1.6 10^3/uL (1.2-3.4) 02/01/24 12:04
Absolute Monos (auto) 0.4 10^3/uL (0.1-0.6) 02/01/24 12:
Absolute Eos (auto) 0.1 10^3/uL (0-0.7) 02/01/24 12:04
Absolute Basos (auto) 0.0 10^3/uL (0-0.2) 02/01/24 12:
Immature Gran % 0.2 % (0-0.5) 02/01/24 12:04
Neutrophils % 52.7 % (42.2-75.2) 02/01/24 12:
Lymphocytes % 35.6 % (20.5-51.1) 02/01/24 12:04
Monocytes % 9.6 % (1.7-9.3) H 02/01/24 12:04
Eosinophils % 1.5 % (0-6) 02/01/24 12:04
Basophils % 0.4 % (0-2) 02/01/24 12:04
Creatinine 1.1 mg/dL (0.6-1.0) H 02/01/24 12:04
Vital Signs
Vital Signs
Temp Pulse Resp BP Pulse Ox
98.4 F 80 16 86/60 100
02/01/24 11:00 02/01/24 11:00 02/01/24 11:00 02/01/24 14:28 02/01/24 11:00
[2024-02-01 16:53] LABS: Glucose - Point of Care 107 mg/dl (70-99)
[2024-02-01] MEDS: LOVENOX 40 MG SC (17:02)
[2024-02-01] MEDS: DILAUDID 4 MG PO (17:08)
[2024-02-01] MEDS: ZOFRAN 4 MG IV (20:16)
[2024-02-01] MEDS: FLEXERIL 20 MG PO (20:17)
[2024-02-01] MEDS: KLOR-CON 20 MEQ PO (20:18)
[2024-02-01 21:40] LABS: Glucose - Point of Care 130 mg/dl (70-99)
--- NOTE | 2024-02-01 21:45 | PTCARENOTE ---
Pt HR elevated >185 for a few seconds and came back down to the 70s. Pt states she was unaware and had no symptoms. Notified LOGISTICS INTERN. Ordered magnesium to be drawn in the AM. Pt is resting comfortably in bed, call bonilla in reach.
[2024-02-01] MEDS: PEPCID 40 MG PO (22:37)
[2024-02-01] MEDS: AMBIEN 10 MG PO (23:47)
[2024-02-02] VITALS (9 sets, daily range): BP systolic 83–105; BP diastolic 42–61; PULSE 65–100; BMI 24.6
[2024-02-02] MEDS: SYNTHROID 50 MCG PO (05:38)
[2024-02-02 05:50] LABS: ALT (SGPT) 33 U/L (0-35); AST (SGOT) 44 U/L (14-36); Albumin 2.2 g/dl (3.5-5.0); Alkaline Phosphatase 61 U/L (38-126); Blood Urea Nitrogen 17 mg/dl (7-17); Calcium 7.8 mg/dl (8.4-10.2); Carbon Dioxide 31 mmol/L (22-30); Chloride 106 mmol/L (98-107); Estimated Creatinine Clearance 47 ml/min; Glucose 68 mg/dl (70-99); LDH 233 U/L (120-246); Magnesium 1.9 mg/dl (1.6-2.3); Sodium 140 mmol/L (135-145); Total Bilirubin 0.3 mg/dl (0.2-1.3); Total Protein 4.7 g/dl (6.3-8.2); eGFR 58.97
[2024-02-02 06:33] LABS: Reticulocyte Count 3.6 % (0.4-2.8)
[2024-02-02 07:16] LABS: Glucose - Point of Care 69 mg/dl (70-99)
[2024-02-02] MEDS: NOVOLOG FLEXPEN-LOW RESISTANCE SC ×3 (07:17→16:36)
[2024-02-02] MEDS: THERAGRAN 1 TABLET PO (07:31)
[2024-02-02] MEDS: ZENPEP DELAYED RELEASE CAPSULE 3 CAPSULE PO ×3 (07:31→17:15)
[2024-02-02] MEDS: ALDACTONE PO (07:31)
[2024-02-02] MEDS: FOLVITE 1 MG PO (07:32)
[2024-02-02] MEDS: FLEXERIL 10 MG PO (07:32)
[2024-02-02] MEDS: PROTONIX 40 MG PO (07:32)
[2024-02-02] MEDS: WELLBUTRIN XL (24 hour extended release) 150 MG PO (07:32)
[2024-02-02] MEDS: KLOR-CON 20 MEQ PO ×2 (07:32→21:06)
[2024-02-02] MEDS: QUESTRAN PO ×2 (07:33→21:08)
[2024-02-02 10:27] LABS: % Basophils 0.5 % (0-2); % Eosinophils 1.6 % (0-6); % Immature Granulocytes 0.5 % (0-0.5); % Lymphocytes 36.2 % (20.5-51.1); % Monocytes 9.4 % (1.7-9.3); % Neutrophils 51.8 % (42.2-75.2); Absolute Eosinophils 0.1 10^3/uL (0-0.7); Absolute Lymphocytes 1.6 10^3/uL (1.2-3.4); Absolute Monocytes 0.4 10^3/uL (0.1-0.6); Absolute Neutrophils 2.3 10^3/uL (1.4-6.5); Hematocrit 25.3 % (37.0-47.0); Hemoglobin 8.3 g/dL (12.0-16.0); Mean Corp Hgb Conc. 32.8 g/dL (33.0-37.0); Mean Corpuscular Hgb 30.9 pg (27.0-31.0); Mean Corpuscular Volume 94.1 fL (81.0-99.0); Mean Platelet Volume 10.5 fL (7.4-10.4); Nucleated Red Blood Cells % 0 %; Platelet Count 163 10^3/uL (130-400); Red Blood Cell Count 2.69 10^6/uL (4.20-5.40); Red Cell Dist. Width 14.4 % (11.5-14.5); White Blood Cell Count 4.3 10^3/uL (4.8-10.8)
[2024-02-02 11:16] LABS: Urine Protein 13 mg/dl (0-12)
--- NOTE | 2024-02-02 11:19 | W.PN.HOSP.TC ---
Today's Communication/Plan
-
OP hepatology f/u
Assessment / Plan
Assessment / Plan
A/P: Patient is a 58y F with PMH significant for DM-II, CKD and hypothyroidism who presents to ED complaining of LE swelling and weight gain.
Bilateral lower extremity lymphedema likely 2/2 concern for liver pathology
- CXR clear, no hypoxemia.
- Echocardiogram with normal biventricular size and systolic function with no regional wall motion abnormality. Normal diastolic function. Aortic sclerosis without stenosis. Mild tricuspid regurgitation. PASP . No significant change
compared to echo done on 09/18/2022.
- Check protein:creatinine ratio-normal
- Due to soft BP diuresis limited. Can consider additional dose of lasix if BP stable.
- Continue outpatient spironolactone dose if BP can tolerate it
- Patient has underwent outpatient extensive workup for anemia during which time as concern for liver pathology/infiltration with elevated ferritin and low ceruplasmin level. 24h urine gavin studies ordered and completed. Her outpatient
hepatology appointment has been rescheduled for next week.
Hypokalemia
- ? secondary to GI losses - though these have improved over the past week after addition of Benefiber and Zenpep.
- Check Mg level and keep > 2.
- Replace with oral potassium and adjust dose / frequency for adequate replacement.
- Follow for improvement.
CKD III
- Stable. Renal function is at / near known baseline.
- Check protein:creatinine ratio as noted above.
- Follow for changes.
Hyperglycemia
-A1C at 5.5
Anemia of Chronic Disease
- Hgb slightly decreased from usual baseline.
- Follow for changes - especially with eventual diuresis.
- Prior iron studies were c/w chronic disease.
- Low folate-start po folic acid
- Heme test negative. Hemoglobin 8.3.
- No evidence of acute blood loss, etc. Hemolysis panel ordered
Anxiety / Depression / Insomnia
- Continue bupropion.
DVT Prophylaxis: SCDs
Code Status: Full
More than 30 minutes spent in discharge including
Final examination of the patient
Summarizing hospital stay
Instructions for continuing care to all relevant caregivers
Preparation of discharge records, prescriptions, and referral forms
Total time spent (in minutes): 52
Anticipated Discharge: Today
Subjective/Interval History
-
Date of Service: February 02, 2024
Mild improvement in edema
completed 24h urine collection.
Objective Data
-
Labs:
Laboratory Results
02/02/24 02/02/24
05:09 10:18
WBC 4.3 L
Hgb 8.3 L
Hct 25.3 L
Plt Count 163 D
Sodium 140
Potassium 4.0
Chloride 106
Carbon Dioxide 31 H
BUN 17
Creatinine 1.1 H
Glucose 68 L
Calcium 7.8 L
Total Bilirubin 0.3
AST 44 H
ALT 33
Alkaline Phosphatase 61
Vital Signs:
Vital Signs
Temp Pulse Resp BP Pulse Ox
97.8 F 67 18 95/59 99
02/02/24 07:02 02/02/24 07:31 02/02/24 07:02 02/02/24 07:31 02/02/24 07:02
I&O
02/01/24 02/02/24 02/03/24
06:59 06:59 06:59
Intake Total 960 / 960
Output Total 875 / 875
Balance 85 / 85
Physical Exam
-
General: Well Developed and No Apparent Distress
HEENT: Normocephalic, Atraumatic and Moist Mucous Membranes
Respiratory: Clear to Auscultation
Cardiac: Regular Rhythm and S1/S2; Negative Murmur, Rub or Gallop
GI: Soft, Nontender, Nondistended and Normal Bowel Sounds; Negative Organomegaly
Rectal: Deferred by Provider
Musculoskeletal: No Clubbing, No Cyanosis, No Edema, Edema, Right Lower Extrem (improvement in edema ) and Edema, Left Lower Extrem (improvement in edema )
Skin: Negative Rash
Neuro: Awake, No Motor Deficits and Nonfocal/Grossly Intact
Psych: Calm
[2024-02-02 11:31] LABS: Glucose - Point of Care 135 mg/dl (70-99)
[2024-02-02] MEDS: REQUIP 4 MG PO (11:49)
[2024-02-02] MEDS: PLAQUENIL 400 MG PO (11:49)
[2024-02-02] MEDS: ProAmatine 5 MG PO ×3 (11:50→17:50)
[2024-02-02 11:51] LABS: 24 Hour Urine Total Volume 2100 ml
[2024-02-02] MEDS: BENADRYL 25 MG PO (12:03)
--- NOTE | 2024-02-02 12:58 | CM ---
CM met with pt bedside
Pt resides with her spouse in a [facility], [address] and full flight to B/B
Pt notes independence with her ADLs
Has a rollator for use as needed
PCP- Roxy Hussein
Rx- [facility]
PT- outpt recommendation
OT- no needs
Pt in agreement with outpt PT on dc
Script requested form Dr. De La Vega
outpatient therapy clinic info in dc packet
Per chart review, anticipate dc later today
IMM verbally completed with pt- copy provided
Discharge Disposition- home outpt PT- spouse transport
[2024-02-02] MEDS: NSS 250 IV (16:18)
[2024-02-02 16:35] LABS: Glucose - Point of Care 147 mg/dl (70-99)
[2024-02-02] MEDS: LOVENOX 40 MG SC (17:15)
[2024-02-02] MEDS: DILAUDID 4 MG PO (17:51)
[2024-02-02] MEDS: PEPCID 40 MG PO (21:04)
[2024-02-02] MEDS: FLEXERIL 20 MG PO (21:06)
[2024-02-02 21:49] LABS: Glucose - Point of Care 114 mg/dl (70-99)
[2024-02-03] MEDS: AMBIEN 10 MG PO (01:11)
[2024-02-03 01:12] VITALS: BP 100/57
[2024-02-03 03:45] VITALS: BP 109/47
[2024-02-03 05:45] LABS: % Basophils 0.4 % (0-2); % Eosinophils 2.1 % (0-6); % Immature Granulocytes 0.4 % (0-0.5); % Lymphocytes 46.6 % (20.5-51.1); % Neutrophils 40.5 % (42.2-75.2); Absolute Eosinophils 0.1 10^3/uL (0-0.7); Absolute Lymphocytes 2.2 10^3/uL (1.2-3.4); Absolute Monocytes 0.5 10^3/uL (0.1-0.6); Absolute Neutrophils 1.9 10^3/uL (1.4-6.5); Hematocrit 24.2 % (37.0-47.0); Hemoglobin 7.9 g/dL (12.0-16.0); Mean Corp Hgb Conc. 32.6 g/dL (33.0-37.0); Mean Corpuscular Hgb 30.5 pg (27.0-31.0); Mean Corpuscular Volume 93.4 fL (81.0-99.0); Mean Platelet Volume 10.5 fL (7.4-10.4); Nucleated Red Blood Cells % 0 %; Platelet Count 187 10^3/uL (130-400); Red Blood Cell Count 2.59 10^6/uL (4.20-5.40); Red Cell Dist. Width 14.2 % (11.5-14.5); White Blood Cell Count 4.7 10^3/uL (4.8-10.8)
[2024-02-03] MEDS: SYNTHROID 50 MCG PO (05:59)
[2024-02-03 06:00] VITALS: BMI 24.5
[2024-02-03 06:15] LABS: ALT (SGPT) 40 U/L (0-35); AST (SGOT) 58 U/L (14-36); Albumin 2.1 g/dl (3.5-5.0); Alkaline Phosphatase 66 U/L (38-126); Blood Urea Nitrogen 16 mg/dl (7-17); Calcium 8.1 mg/dl (8.4-10.2); Carbon Dioxide 29 mmol/L (22-30); Chloride 104 mmol/L (98-107); Estimated Creatinine Clearance 47 ml/min; Glucose 72 mg/dl (70-99); Potassium 4.1 mmol/L (3.5-5.1); Sodium 137 mmol/L (135-145); Total Bilirubin 0.4 mg/dl (0.2-1.3); Total Protein 4.5 g/dl (6.3-8.2); eGFR 58.97
[2024-02-03 07:55] LABS: Glucose - Point of Care 74 mg/dl (70-99)
[2024-02-03] MEDS: PROTONIX 40 MG PO (07:57)
[2024-02-03] MEDS: ZENPEP DELAYED RELEASE CAPSULE 3 CAPSULE PO ×2 (07:57→12:38)
[2024-02-03] MEDS: FLEXERIL 10 MG PO (07:57)
[2024-02-03] MEDS: WELLBUTRIN XL (24 hour extended release) 150 MG PO (07:58)
[2024-02-03] MEDS: FOLVITE 1 MG PO (07:58)
[2024-02-03] MEDS: THERAGRAN 1 TABLET PO (07:58)
[2024-02-03] MEDS: NOVOLOG FLEXPEN-LOW RESISTANCE SC (07:59)
[2024-02-03] MEDS: ProAmatine 5 MG PO ×2 (08:00→12:38)
[2024-02-03] MEDS: KLOR-CON 20 MEQ PO (08:01)
[2024-02-03] MEDS: QUESTRAN PO (08:01)
[2024-02-03 08:24] VITALS: BP 104/71; BP 96/65; BP 97/50; PULSE 110; PULSE 63
[2024-02-03 09:14] VITALS: BP 103/61; BP 96/57; PULSE 70
--- NOTE | 2024-02-03 11:04 | W.PN.HOSP.TC ---
Today's Communication/Plan
-
midodrine
op hepatlogy f/u
Assessment / Plan
Assessment / Plan
A/P: Patient is a 58y F with PMH significant for DM-II, CKD and hypothyroidism who presents to ED complaining of LE swelling and weight gain.
Bilateral lower extremity lymphedema likely 2/2 concern for liver pathology
- CXR clear, no hypoxemia.
- Echocardiogram with normal biventricular size and systolic function with no regional wall motion abnormality. Normal diastolic function. Aortic sclerosis without stenosis. Mild tricuspid regurgitation. PASP . No significant change
compared to echo done on 09/18/2022.
- Check random protein:creatinine ratio-normal
- Due to soft BP diuresis limited. Can consider additional dose of lasix if BP stable.
- DC spironolactone dose as with hypotension
- Patient has underwent outpatient extensive workup for anemia during which time as concern for liver pathology/infiltration with elevated ferritin and low ceruplasmin level. 24h urine gavin studies ordered and results pending. Her outpatient
hepatology appointment has been rescheduled for next week.
Hypokalemia
- ? secondary to GI losses - though these have improved over the past week after addition of Benefiber and Zenpep.
- Check Mg level and keep > 2. K at 4.1
- Replace with oral potassium and adjust dose / frequency for adequate replacement.
- Follow for improvement.
CKD III
- Stable. Renal function is at / near known baseline.
- Check protein:creatinine ratio as noted above.
- Follow for changes.
Hyperglycemia
-A1C at 5.5
Anemia of Chronic Disease
- Hgb slightly decreased from usual baseline.
- Follow for changes - especially with eventual diuresis.
- Prior iron studies were c/w chronic disease.
- Low folate-start po folic acid
- Heme test negative.
- No evidence of acute blood loss, etc. Hemolysis panel ordered. Retic count mild elevated. Hapto pending-f/u with heme as OP
Anxiety / Depression / Insomnia
- Continue bupropion.
DVT Prophylaxis: SCDs
Code Status: Full
More than 30 minutes spent in discharge including
Final examination of the patient
Summarizing hospital stay
Instructions for continuing care to all relevant caregivers
Preparation of discharge records, prescriptions, and referral forms
Total time spent (in minutes): 52
Anticipated Discharge: Today
Subjective/Interval History
-
Date of Service: February 03, 2024
BP stable this am
no dizziness
states walked around
Objective Data
-
Labs:
Laboratory Results
02/03/24
05:22
WBC 4.7 L
Hgb 7.9 L
Hct 24.2 L
Plt Count 187
Sodium 137
Potassium 4.1
Chloride 104
Carbon Dioxide 29
BUN 16
Creatinine 1.1 H
Glucose 72
Calcium 8.1 L
Total Bilirubin 0.4
AST 58 H
ALT 40 H
Alkaline Phosphatase 66
Vital Signs:
Vital Signs
Temp Pulse Resp BP Pulse Ox
98.0 F 63 18 97/50 100
02/03/24 08:24 02/03/24 08:24 02/03/24 08:24 02/03/24 08:24 02/03/24 08:24
I&O
02/02/24 02/03/24 02/04/24
06:59 06:59 06:59
Intake Total 960 / 960 1200 / 1200
Output Total 875 / 875 1200 / 1200
Balance 85 / 85 0 / 0
--- NOTE | 2024-02-03 11:18 | W.DCSUMMARY ---
Discharge Summary
Discharge Data
Date of Admission: 01/30/24
Date of Discharge: 02/03/24
-
Pending Results: No
Hospital Course
Patient is a 58y F with PMH significant for DM-II, CKD and hypothyroidism who presents to ED complaining of LE swelling and weight gain who presented with right lower extremity edema. Patient underwent echocardiogram which showed with normal
biventricular size and systolic function with no regional wall motion abnormality. Normal diastolic function. Aortic sclerosis without stenosis. Mild tricuspid regurgitation. PASP . No significant change compared to echo done on 09/18/2022.
random protein:creatinine ratio-normal. Received message from patient primary theatre professor outpatient and recommended 24-hour urine collection for urine copper as concern for infiltrative liver disease process. Patient has underwent outpatient
extensive workup for anemia during which time as concern for liver pathology/infiltration with elevated ferritin and low ceruplasmin level. 24h urine gavin studies ordered and results pending. Her outpatient hepatology appointment has been
rescheduled for next week. Patient received few doses of IV Lasix. However due to soft blood pressure patient was unable to tolerate further diuresis. Aldactone was discontinued. Patient was started on midodrine 5 mg 3 times daily. Patient was
also recommend to follow-up with the lymphedema clinic. Patient has appointment with her primary licensed land surveyor on February 08, 2024 and recommended to discuss about infiltrative liver pathology and possibility of liver biopsy.
Discharge Plan
-
Patient Disposition: Home (Routine Discharge)
Discharge Diagnosis/Procedures: Bilateral lower extremity lymphedema
Hypokalemia
Condition: Fair
Diet: As tolerated
Activity: With assistance and As tolerated
Driving Restrictions: As prior to admission
Blood Work: CMP in 1-2 weeks via primary doctor.
Activity Restrictions/Additional Instructions:
Follow-up with your licensed land surveyor next week.
Follow-up the urine copper collection and 24 urine results with your primary oncologist
For more information on our lymphedema treatment program, call [phone].
Referrals:
Brea Puentes MD [Active] - None
Roxy Hussein MD [Family Provider] - in less than 1 week
Prescriptions:
New
folic acid 1 mg Tablet
1 mg PO DAILY 30 Days Qty: 30 0RF
midodrine 5 mg Tablet
5 mg PO TID@0800,1300,1800 30 Days Qty: 90 0RF
Continued
albuterol sulfate 1 PUFF HFA aerosol inhaler
2 puff inhalation R Q4HPRN PRN (Reason: shortness of breath)
levothyroxine 50 MCG tablet
50 mcg PO DAILY@0700
ondansetron 4 MG tablet,disintegrating
4 mg PO Q8HPRN PRN (Reason: nausea)
omeprazole 40 MG capsule,delayed release(DR/EC)
40 mg PO DAILY
cyclobenzaprine 10 MG tablet
10 mg PO DAILY
docusate sodium 100 MG capsule
100 mg PO DAILYPRN PRN (Reason: constipation)
bisacodyl 5 MG tablet,delayed release (DR/EC)
15 mg PO DAILYPRN PRN (Reason: constipation)
fluticasone propionate 1 SPRAY spray,suspension
2 spray intranasal DAILY PRN (Reason: congestion)
multivitamin Tablet
1 tab PO DAILY
zolpidem 10 mg Tablet
10 mg PO HSPRN PRN (Reason: insomnia)
Patient Comments:
01/30/2024: last filled 01/05/24, 30 tabs for 30 days from [facility]
famotidine 40 mg Tablet
40 mg PO HS
hydromorphone [Dilaudid] 4 mg Tablet
4 mg PO BIDPRN PRN (Reason: severe pain)
Patient Comments:
01/30/2024: last filled 01/14/24, 30 tabs for 15 days from [facility]
cyclobenzaprine 10 mg Tablet
20 mg PO DAILY@1999
ropinirole 4 mg Tablet
4 mg PO HS
bupropion HCl 150 mg tablet extended release 24 hr
150 mg PO DAILY
Orencia 50 mg/0.4 mL Syringe
1 mg SC MONTHLY
furosemide 40 mg tablet
40 mg PO DAILYPRN PRN (Reason: 2 lb weight gain)
potassium chloride 20 mEq packet
20 meq PO BID Qty: 30 0RF
hydroxychloroquine 200 mg tablet
400 mg PO NOON
diclofenac sodium 1 % Gel
1 ea TOPICAL DAILY PRN (Reason: back and leg pain)
Zenpep 25,000-79,000- 105,000 unit capsule,delayed release(DR/EC)
3 cap PO MEALS
Discontinued
spironolactone 25 mg tablet
12.5 mg PO DAILY
Discharge Orders:
Discharge Patient (As Directed); Ordered 02/03/24
Ordered By: Jairo De La Vega
Discharge Date and Time
Print Language: BELARUSIAN
--- NOTE | 2024-02-03 11:38 | W.PN.ONC ---
Today's Communication / Plan
-
Diuresis per primary team
Dr. 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 Martinez)
Has outpatient f/u with Dr. Martinez to review w/u
No deficiency of B12, folate, iron; no monoclonal protein noted on anemia w/u
Reticulocyte count slightly elevated 3.9
LDH in the normal range
Haptoglobin pending
Would heme check stool, ordered
Anticipate discharge
Has office follow-up scheduled for tomorrow
Impression
Impression
leg swelling, h/o lymphedema and CHF
worsening anemia, normocytic
severe hepatic steatosis by MRI
elevated ferritin, hereditary hemochromatosis - compound heterozygous
h/o iron def related to weight loss surgery, prior iron infusions
Subjective/Objective
Subjective/Objective
Patient comfortable without new complaints today. Hemoglobin stable. Anticipate discharge
Vital Signs:
Vital Signs
Temp Pulse Resp BP Pulse Ox
98.0 F 63 18 97/50 100
02/03/24 08:24 02/03/24 08:24 02/03/24 08:24 02/03/24 08:24 02/03/24 11:04
PE: Stable
Lab Results:
Laboratory Data
WBC 4.7 10^3/uL (4.8-10.8) L 02/03/24 05:22
Hgb 7.9 g/dL (12.0-16.0) L 02/03/24 05:22
Plt Count 187 10^3/uL (130-400) 02/03/24 05:22
eGFR 58.97 02/03/24 05:22
[2024-02-03 11:45] LABS: Glucose - Point of Care 182 mg/dl (70-99)
[2024-02-03] MEDS: NOVOLOG FLEXPEN-LOW RESISTANCE 1 UNITS SC (11:49)
[2024-02-03 12:04] VITALS: BP 92/59
[2024-02-03] MEDS: PLAQUENIL 400 MG PO (12:39)
[2024-02-03] MEDS: REQUIP PO (13:25)
--- NOTE | 2024-02-03 13:27 | CM ---
patient stable for discharge home with no needs.family to transport home.
[2024-02-04 08:44] LABS: Haptoglobin 51 mg/dL (30-200)
[2024-02-05 06:07] LABS: 24 Hour Urine Total Volume 2100 mL; Copper, Urine per Volume <1.0 ug/dL (<=3.2); Creatinine, Urine 24 Hour 861 mg/d (500-1400); Creatinine, Urine per Volume 41 mg/dL; Urine Collection Length 24 hr
== END 2024-02-03 15:16 | disposition home or self-care (01) | DRG 607 ==
LOC: 2 NORTH 05:45
PROVIDERS: Hospitalist; Internal Medicine Hematology & Oncology; Student in an Organized Health Care Education/Training Program; ADMITTING PHYSICIAN Hospitalist; ATTENDING PHYSICIAN Hospitalist; EMERGENCY PHYSICIAN Emergency Medicine; FAMILY PHYSICIAN Family Medicine; OTHER PHYSICIAN Internal Medicine Hematology & Oncology
DX: I89.0 Lymphedema, not elsewhere classified (principal); I13.0 Hypertensive heart and chronic kidney disease with heart failure and stage 1 through stage 4 chronic kidney disease, or unspecified chronic kidney disease; F11.20 Opioid dependence, uncomplicated; I50.9 Heart failure, unspecified; E87.6 Hypokalemia; N18.30 Chronic kidney disease, stage 3 unspecified; E11.22 Type 2 diabetes mellitus with diabetic chronic kidney disease; D63.8 Anemia in other chronic diseases classified elsewhere; F32.A Depression, unspecified; F41.9 Anxiety disorder, unspecified; G47.00 Insomnia, unspecified; K76.0 Fatty (change of) liver, not elsewhere classified; E83.110 Hereditary hemochromatosis; K86.89 Other specified diseases of pancreas
CPT/HCPCS: 71046; 74177; 74183; 80048; 80053; 81050; 82525; 82570; 82607; 82728; 82746; 82962; 83010; 83036; 83540; 83550; 83615; 83735; 83880; 84156; 84443; 84484; 85025; 85027; 85045; 93005; 93306; 93970; 96361; 96365; 96366; 97116; 97162; 97165; 99285; A9575; Q9967

== ENCOUNTER → 2024-02-22 11:27 | Outpatient (REF) | payer MEDICARE, OTHER, SELFPAY ==
[2024-02-22 11:48] LABS: % Basophils 0.8 % (0-2); % Eosinophils 1.6 % (0-6); % Immature Granulocytes 0.3 % (0-0.5); % Lymphocytes 21.4 % (20.5-51.1); % Neutrophils 69.9 % (42.2-75.2); Absolute Basophils 0.1 10^3/uL (0-0.2); Absolute Eosinophils 0.1 10^3/uL (0-0.7); Absolute Lymphocytes 1.7 10^3/uL (1.2-3.4); Absolute Monocytes 0.5 10^3/uL (0.1-0.6); Absolute Neutrophils 5.6 10^3/uL (1.4-6.5); Hemoglobin 9.3 g/dL (12.0-16.0); Mean Corp Hgb Conc. 33.2 g/dL (33.0-37.0); Mean Corpuscular Hgb 31.5 pg (27.0-31.0); Mean Corpuscular Volume 94.9 fL (81.0-99.0); Mean Platelet Volume 9.9 fL (7.4-10.4); Platelet Count 241 10^3/uL (130-400); Red Blood Cell Count 2.95 10^6/uL (4.20-5.40); Red Cell Dist. Width 15.1 % (11.5-14.5)
== END ==
LOC: OIDL 11:27
PROVIDERS: ATTENDING PHYSICIAN Internal Medicine Hematology & Oncology; FAMILY PHYSICIAN Family Medicine
DX: D63.1 Anemia in chronic kidney disease (principal); R63.4 Abnormal weight loss
CPT/HCPCS: 36415; 85025

== ENCOUNTER 2024-02-28 17:06 | Emergency (ER) | payer MEDICARE, OTHER, SELFPAY ==
[2024-02-28 17:14] VITALS: BP 118/80
[2024-02-28 17:32] LABS: % Basophils 0.5 % (0-2); % Eosinophils 1.5 % (0-6); % Immature Granulocytes 0.5 % (0-0.5); % Monocytes 7.5 % (1.7-9.3); Absolute Basophils 0.1 10^3/uL (0-0.2); Absolute Eosinophils 0.1 10^3/uL (0-0.7); Absolute Immature Granulocytes 0.1 10^3/uL (0-0.05); Absolute Lymphocytes 2.9 10^3/uL (1.2-3.4); Absolute Monocytes 0.7 10^3/uL (0.1-0.6); Absolute Neutrophils 5.5 10^3/uL (1.4-6.5); Hemoglobin 10.5 g/dL (12.0-16.0); Mean Corp Hgb Conc. 33.9 g/dL (33.0-37.0); Mean Corpuscular Hgb 31.4 pg (27.0-31.0); Mean Corpuscular Volume 92.8 fL (81.0-99.0); Mean Platelet Volume 9.5 fL (7.4-10.4); Nucleated Red Blood Cells % 0 %; Platelet Count 321 10^3/uL (130-400); Red Blood Cell Count 3.34 10^6/uL (4.20-5.40); Red Cell Dist. Width 15.1 % (11.5-14.5); White Blood Cell Count 9.3 10^3/uL (4.8-10.8)
[2024-02-28 17:44] LABS: ALT (SGPT) 42 U/L (0-35); AST (SGOT) 45 U/L (14-36); Albumin 3.8 g/dl (3.5-5.0); Alkaline Phosphatase 86 U/L (38-126); Blood Urea Nitrogen 12 mg/dl (7-17); Calcium 8.3 mg/dl (8.4-10.2); Carbon Dioxide 30 mmol/L (22-30); Chloride 101 mmol/L (98-107); Glucose 111 mg/dl (70-99); Potassium 3.3 mmol/L (3.5-5.1); Sodium 139 mmol/L (135-145); Total Bilirubin 0.5 mg/dl (0.2-1.3); Total Protein 6.5 g/dl (6.3-8.2); eGFR 53.13
[2024-02-28 17:52] LABS: NT-proBNP 850 pg/ml
[2024-02-28 19:17] VITALS: BP 101/66
--- NOTE | 2024-02-28 19:19 | ED.GENMED ---
History of Present Illness
General
Chief Complaint: Swelling
Source: patient
Exam Limitations: none
Time Seen by Provider: 02/28/24 18:45
History of Present Illness
History of Present Illness:
This is a 58 year old female that comes in with c/o lower leg swelling. States that she can hardly walk due to the swelling. States that this has been on and off for the past few weeks. Then the past 3-4 days it hasn't gone down. States that when
she got home her [id number] was a nurse and said to come to the ER. States that she has also gained 8 pounds since this morning. States that she did take Lasix 40mg this morning. States that she has a headache daily, has some abd pressure since
her liver biopsy and she had diarrhea yesterday. Denies any fever, chills, today, chest pain, SOB, nausea, vomiting, dizziness, urinary burning.
Past History
Past History
ED Past Medical History: Arrthythmia (Tachycardia), Asthma, CAD, CHF, COPD, Fibromyalgia, GERD, HTN, Hypothyroidism, Psychiatric (Anxiety, Depression), Other (Migraines, Neuropathy, Arms and leg numbness, Restless leg syndrome, Sleep apnea,
Ideopathic edema Diverticulitis, Hiatal hernia, IBS, Gastroparesis, PNA, Edema,) and Other (Endometriosis, Uterine fibroid, PCOS, Eczema, Macular degeneration, Iron Def anemia, Pancreatic enzyme insufficiency, Hemochromotosis, back pain, Liver
biopsy)
ED Past Surgical History: Cholecystectomy, Gynecological (Ovarian cyst surgery X 3), Orthopedic (Bilateral knee surgery, Right finger surgery, ), Tonsilectomy (and adenoids) and Other (Laparoscopies, Duodenal switch , Cataracts, Hernia repair,
Uvelectomy)
Social History
Tobacco: Non-smoker
Alcohol: None
Drug: None
Personal:
Living: with family
Family History
Family History: Diabetes
Review of Systems
Review of Systems
All Other Systems: ROS reviewed and negative except as documented in HPI and ROS
Constitutional: Reports no symptoms; Denies fever or chills
EENT: Reports no symptoms
Respiratory: Reports no symptoms; Denies cough or trouble breathing
Cardiac: Reports no symptoms; Denies chest pain
ABD/GI: Reports abdominal pain (Lower abd pressure) and diarrhea (Yesterday); Denies nausea or vomiting
: Reports no symptoms; Denies dysuria, frequency or urgency
Musculoskeletal: Reports edema (Bilateral leg swelling)
Skin: Reports no symptoms
Neurological: Reports headache (always); Denies dizzy
Psychiatric: Reports no symptoms
Phy Exam
General Physical Exam
General Presentation: well appearing and no apparent distress
General age: appears stated age
General Skin: warm and dry
General Habitus: normal
General Mental: alert
General Hydration: appears well hydrated
ENT Exam
ENT Exam: TM's normal, pharynx normal and neck supple
Eye Exam
Eye Exam: EOMI
Cardiovascular Exam
Cardiovascular Exam: regular rate/rhythm and normal peripheral pulses
Pulmonary Exam
Pulmonary Exam: lungs clear, no respiratory distress, no rales, chest non tender, no crackles, no rhonchi, no wheezing and no cough
Gastrointestinal Exam
Gastrointestinal Exam: normal bowel sounds, soft, no organomegaly, no pulsatile mass, non distended and tender (Lower abd tenderness only with palpation)
Musculoskeletal Exam
Musculoskeletal Exam: full ROM and edema (Feet and lower leg nonpitting)
Skin Exam
Skin Exam: normal color, warm/dry, no rash and no petechia
Psychiatric Exam
Psychiatric Exam: normal mood/affect
Scores
Heart Failure Risk
Heart Failure Risk Score: Not Applicable
Course
Orders/Labs/Results
Orders:
Orders
02/28/24 17:23
BNP [NT-proBNP] Urgent
Complete Blood Count/With Diff Urgent
Comprehensive Metabolic Panel Urgent
02/28/24 19:16
US Legs, Bilateral [US Periph Venous LOWER Ext Kg] Urgent
Comment: History of CHF
Reason For Exam: Bilateral feet and lower leg edema
Abnormal Lab Results
02/28/24
17:23
RBC 3.34 L 10^6/uL
(4.20-5.40)
Hgb 10.5 L g/dL
(12.0-16.0)
Hct 31.0 L %
(37.0-47.0)
MCH 31.4 H pg
(27.0-31.0)
RDW 15.1 H %
(11.5-14.5)
Abs Immat Gran (auto) 0.1 H 10^3/uL
(0-0.05)
Absolute Monos (auto) 0.7 H 10^3/uL
(0.1-0.6)
Potassium 3.3 L mmol/L
(3.5-5.1)
Creatinine 1.2 H mg/dL
(0.6-1.0)
Glucose 111 H mg/dl
(70-99)
Calcium 8.3 L mg/dl
(8.4-10.2)
AST 45 H U/L
(14-36)
ALT 42 H U/L
(0-35)
02/28/24 17:23
02/28/24 17:23
H/H low Chornic anemia, Hyperglycemia, AST/ALT slightly elevated. Pro-BNP 850
Vital Signs
Initial and Last Documented VS:
Initial Vital Signs
Temp Pulse Resp BP Pulse Ox
98.3 F 94 20 118/80 99
02/28/24 17:14 02/28/24 17:14 02/28/24 17:14 02/28/24 17:14 02/28/24 17:14
Last Documented Vital Signs
Temp Pulse Resp BP Pulse Ox
98.3 F 73 15 114/68 100
02/28/24 17:14 02/28/24 20:25 02/28/24 20:25 02/28/24 20:25 02/28/24 20:25
MDM/Problems Addressed
Differential Diagnosis Includes:
Dependent edema. DVT
MDM/Problems Addressed:
This is a 58 year old female that comes in with c.o bilateral leg swelling. States that she gained 8 pounds form this morning.
Will get Labs, US
back into see patient. Explained that the US is negative for DVT. This may be dependent edema. Encouraged patient to wear EDUAR stockings and elevate her legs when sitting around. Patient to follow up with the Family doctor or her Hot Roll Inspector for
further evaluation. Patient to return with any concerns
Chronic conditions affecting care: Other (history of Edema)
Acute Exacerbation and/or Progression of Chronic Illness: Other (Ideopathic edema)
*Radiology
Radiology exam reviewed: radiology read reviewed (US-No sonographic evidence for lower extremity venous thrombosis. )
*Pulse Oximetry
Patient hypoxic: no
*EKG
Interpreted by ED Provider?: NA
Rate: EKG- N/A
*Guide Delegate Interpretation
Rate: normal
Heart Rate: 84
Rhythm: sinus
*Critical Care Note
Total Time (30-74mins, 75-104mins- exclusive of procedures): Not Applicable
ED Attending Note
-
Portions of this chart may have been created with voice recognition software.� Occasional wrong word or��sound alike� substitutions may have occurred due to the inherent limitations of voice recognition software.
Discharge Plan
Departure
Patient Disposition: Home (Routine Discharge)
Date of Disposition: 02/28/24
Time of Disposition: 21:26
Patient with high blood pressure during this ER visit?: No
Condition: Good
Covid-19: Not Applicable
Discharge Problem:
Localized swelling of both lower legs
Instructions: Dependent Edema (DC)
Prescriptions:
No Action
albuterol sulfate 1 PUFF HFA aerosol inhaler
2 puff inhalation R Q4HPRN PRN (Reason: shortness of breath)
levothyroxine 50 MCG tablet
50 mcg PO DAILY@0700
ondansetron 4 MG tablet,disintegrating
4 mg PO Q8HPRN PRN (Reason: nausea)
omeprazole 40 MG capsule,delayed release(DR/EC)
40 mg PO DAILY
cyclobenzaprine 10 MG tablet
10 mg PO DAILY
docusate sodium 100 MG capsule
100 mg PO DAILYPRN PRN (Reason: constipation)
bisacodyl 5 MG tablet,delayed release (DR/EC)
15 mg PO DAILYPRN PRN (Reason: constipation)
fluticasone propionate 1 SPRAY spray,suspension
2 spray intranasal DAILY PRN (Reason: congestion)
multivitamin Tablet
1 tab PO DAILY
zolpidem 10 mg Tablet
10 mg PO HSPRN PRN (Reason: insomnia)
Patient Comments:
01/30/2024: last filled 01/05/24, 30 tabs for 30 days from [facility]
famotidine 40 mg Tablet
40 mg PO HS
hydromorphone [Dilaudid] 4 mg Tablet
4 mg PO BIDPRN PRN (Reason: severe pain)
Patient Comments:
01/30/2024: last filled 01/14/24, 30 tabs for 15 days from [facility]
cyclobenzaprine 10 mg Tablet
20 mg PO DAILY@1999
ropinirole 4 mg Tablet
4 mg PO HS
bupropion HCl 150 mg tablet extended release 24 hr
150 mg PO DAILY
Orencia 50 mg/0.4 mL Syringe
1 mg SC MONTHLY
furosemide 40 mg tablet
40 mg PO DAILYPRN PRN (Reason: 2 lb weight gain)
potassium chloride 20 mEq packet
20 meq PO BID Qty: 30 0RF
hydroxychloroquine 200 mg tablet
400 mg PO NOON
diclofenac sodium 1 % Gel
1 ea TOPICAL DAILY PRN (Reason: back and leg pain)
Zenpep 25,000-79,000- 105,000 unit capsule,delayed release(DR/EC)
3 cap PO MEALS
folic acid 1 mg Tablet
1 mg PO DAILY 30 Days Qty: 30 0RF
midodrine 5 mg Tablet
5 mg PO TID@0800,1300,1800 30 Days Qty: 90 0RF
Referrals:
Roxy Hussein MD [Family Provider] - Follow up in 2-3 days
Activity Restrictions/Additional Instructions:
As discussed, your US id negative for any blood clots. This may just be dependent edema. Please use the EDUAR stocking to help decrease the swelling when you are up moving around. Elevate your legs when sitting. Follow up with the family doctor or
your Hot Roll Inspector for further evaluation. IF YOU HAVE ANY SHORTNESS OF BREATH, CHEST PAIN OR YOU HAVE ANY OTHER CONCERNS PLEASE RETURN TO THE EMERGENCY ROOM.
Interventions
Interventions:
*Risk Screen - Suicide Last Done: 02/28/24 17:14
*General Assessment Last Done: 02/28/24 17:14
*Neglect/Abuse Screening Last Done: 02/28/24 17:14
ED- Fall Risk Assessment Last Done: 02/28/24 19:49
ED- Cardiac Assessment Last Done: 02/28/24 19:49
ED- Pulmonary Assessment Last Done: 02/28/24 19:49
ED-Skin Assessment Last Done: 02/28/24 20:27
Discharge Date and Time
Print Language: ZIMBABWEAN
[2024-02-28 20:25] VITALS: BP 114/68
[2024-02-28 21:15] VITALS: BP 106/65
== END 2024-02-28 22:24 | disposition home or self-care (01) ==
LOC: EMR 17:06
PROVIDERS: EMERGENCY PHYSICIAN Emergency Medicine; FAMILY PHYSICIAN Family Medicine
DX: R22.43 Localized swelling, mass and lump, lower limb, bilateral (principal)
CPT/HCPCS: 99284; 80053; 83880; 85025; 93970

== ENCOUNTER → 2024-03-07 11:00 | Outpatient (REF) | payer MEDICARE, OTHER, SELFPAY ==
[2024-03-07 11:09] LABS: % Basophils 0.6 % (0-2); % Eosinophils 1.1 % (0-6); % Monocytes 7.6 % (1.7-9.3); % Neutrophils 66.7 % (42.2-75.2); Absolute Basophils 0.1 10^3/uL (0-0.2); Absolute Eosinophils 0.1 10^3/uL (0-0.7); Absolute Lymphocytes 1.9 10^3/uL (1.2-3.4); Absolute Monocytes 0.6 10^3/uL (0.1-0.6); Absolute Neutrophils 5.3 10^3/uL (1.4-6.5); Hematocrit 33.8 % (37.0-47.0); Hemoglobin 11.1 g/dL (12.0-16.0); Mean Corp Hgb Conc. 32.8 g/dL (33.0-37.0); Mean Corpuscular Hgb 32.1 pg (27.0-31.0); Mean Corpuscular Volume 97.7 fL (81.0-99.0); Mean Platelet Volume 9.5 fL (7.4-10.4); Platelet Count 275 10^3/uL (130-400); Red Blood Cell Count 3.46 10^6/uL (4.20-5.40); Red Cell Dist. Width 14.1 % (11.5-14.5); White Blood Cell Count 7.9 10^3/uL (4.8-10.8)
== END ==
LOC: OIDL 11:00
PROVIDERS: ATTENDING PHYSICIAN Internal Medicine Hematology & Oncology
DX: Z98.84 Bariatric surgery status (principal); R63.4 Abnormal weight loss; D64.9 Anemia, unspecified; R79.89 Other specified abnormal findings of blood chemistry; N18.30 Chronic kidney disease, stage 3 unspecified; D63.1 Anemia in chronic kidney disease
CPT/HCPCS: 36415; 85025

== ENCOUNTER → 2024-03-15 09:46 | Outpatient (REF) | payer MEDICARE, OTHER, SELFPAY | LOC: RAD 09:46 | PROVIDERS: ATTENDING PHYSICIAN Nurse Practitioner Family; FAMILY PHYSICIAN Family Medicine; OTHER PHYSICIAN Internal Medicine Gastroenterology; OTHER PHYSICIAN Specialist; REFERRING PHYSICIAN Internal Medicine Hematology & Oncology | DX: R19.7 Diarrhea, unspecified (principal) | CPT/HCPCS: 74019 ==

== ENCOUNTER → 2024-03-21 13:00 | Outpatient (REF) | payer MEDICARE, OTHER, SELFPAY ==
[2024-03-21 13:21] LABS: % Basophils 0.3 % (0-2); % Eosinophils 2.8 % (0-6); % Immature Granulocytes 0.1 % (0-0.5); % Lymphocytes 24.2 % (20.5-51.1); % Monocytes 8.4 % (1.7-9.3); % Neutrophils 64.2 % (42.2-75.2); Absolute Eosinophils 0.3 10^3/uL (0-0.7); Absolute Lymphocytes 2.2 10^3/uL (1.2-3.4); Absolute Monocytes 0.8 10^3/uL (0.1-0.6); Absolute Neutrophils 5.9 10^3/uL (1.4-6.5); Hematocrit 34.6 % (37.0-47.0); Hemoglobin 11.6 g/dL (12.0-16.0); Mean Corp Hgb Conc. 33.5 g/dL (33.0-37.0); Mean Corpuscular Hgb 31.3 pg (27.0-31.0); Mean Corpuscular Volume 93.3 fL (81.0-99.0); Mean Platelet Volume 9.4 fL (7.4-10.4); Platelet Count 223 10^3/uL (130-400); Red Blood Cell Count 3.71 10^6/uL (4.20-5.40); Red Cell Dist. Width 12.4 % (11.5-14.5); White Blood Cell Count 9.2 10^3/uL (4.8-10.8)
== END ==
LOC: OIDL 13:00
PROVIDERS: ATTENDING PHYSICIAN Internal Medicine Hematology & Oncology; FAMILY PHYSICIAN Family Medicine
DX: Z98.84 Bariatric surgery status (principal); R63.4 Abnormal weight loss; D64.9 Anemia, unspecified; R79.89 Other specified abnormal findings of blood chemistry; N18.30 Chronic kidney disease, stage 3 unspecified; D63.1 Anemia in chronic kidney disease
CPT/HCPCS: 85025

== ENCOUNTER 2024-03-28 11:57 | Outpatient (RCR) | payer MEDICARE, OTHER, SELFPAY | END 2024-03-28 23:59 | disposition home or self-care (01) | LOC: RPT 11:57 | PROVIDERS: ATTENDING PHYSICIAN Family Medicine | DX: I89.0 Lymphedema, not elsewhere classified (principal); Z73.6 Limitation of activities due to disability; R26.2 Difficulty in walking, not elsewhere classified | CPT/HCPCS: 97163; 97535; 97760; 97763 ==

== ENCOUNTER → 2024-03-30 11:29 | Outpatient (REF) | payer MEDICARE, OTHER, SELFPAY ==
[2024-03-30 11:41] LABS: % Basophils 0.6 % (0-2); % Eosinophils 2.2 % (0-6); % Immature Granulocytes 0.1 % (0-0.5); % Lymphocytes 34.5 % (20.5-51.1); % Monocytes 6.3 % (1.7-9.3); % Neutrophils 56.3 % (42.2-75.2); Absolute Eosinophils 0.2 10^3/uL (0-0.7); Absolute Lymphocytes 2.5 10^3/uL (1.2-3.4); Absolute Monocytes 0.5 10^3/uL (0.1-0.6); Absolute Neutrophils 4.1 10^3/uL (1.4-6.5); Hematocrit 35.3 % (37.0-47.0); Hemoglobin 11.7 g/dL (12.0-16.0); Mean Corp Hgb Conc. 33.1 g/dL (33.0-37.0); Mean Corpuscular Hgb 31.2 pg (27.0-31.0); Mean Corpuscular Volume 94.1 fL (81.0-99.0); Mean Platelet Volume 9.5 fL (7.4-10.4); Platelet Count 233 10^3/uL (130-400); Red Blood Cell Count 3.75 10^6/uL (4.20-5.40); Red Cell Dist. Width 12.3 % (11.5-14.5); White Blood Cell Count 7.3 10^3/uL (4.8-10.8)
[2024-03-30 12:22] LABS: Iron 76 ug/dl (37-170)
[2024-03-30 12:32] LABS: Percent Saturation 41 % (20-50); Total Iron Binding Capacity 181 ug/dl (265-497)
== END ==
LOC: OIDL 11:29
PROVIDERS: ATTENDING PHYSICIAN Internal Medicine Hematology & Oncology
DX: D63.1 Anemia in chronic kidney disease (principal)
CPT/HCPCS: 36415; 82728; 83540; 83550; 85025

== ENCOUNTER → 2024-04-13 11:05 | Outpatient (REF) | payer MEDICARE, OTHER, SELFPAY ==
[2024-04-13 11:17] LABS: % Basophils 0.2 % (0-2); % Eosinophils 2.4 % (0-6); % Monocytes 6.6 % (1.7-9.3); % Neutrophils 62.8 % (42.2-75.2); Absolute Eosinophils 0.2 10^3/uL (0-0.7); Absolute Lymphocytes 1.7 10^3/uL (1.2-3.4); Absolute Monocytes 0.4 10^3/uL (0.1-0.6); Absolute Neutrophils 3.9 10^3/uL (1.4-6.5); Hematocrit 30.5 % (37.0-47.0); Hemoglobin 10.2 g/dL (12.0-16.0); Mean Corp Hgb Conc. 33.4 g/dL (33.0-37.0); Mean Corpuscular Hgb 30.7 pg (27.0-31.0); Mean Corpuscular Volume 91.9 fL (81.0-99.0); Mean Platelet Volume 9.5 fL (7.4-10.4); Platelet Count 234 10^3/uL (130-400); Red Blood Cell Count 3.32 10^6/uL (4.20-5.40); Red Cell Dist. Width 12.2 % (11.5-14.5); White Blood Cell Count 6.2 10^3/uL (4.8-10.8)
[2024-04-13 13:04] LABS: Blood Urea Nitrogen 11 mg/dl (7-17); Calcium 8.7 mg/dl (8.4-10.2); Carbon Dioxide 28 mmol/L (22-30); Chloride 108 mmol/L (98-107); Glucose 91 mg/dl (70-99); Potassium 3.4 mmol/L (3.5-5.1); Sodium 141 mmol/L (135-145); eGFR 58.61
== END ==
LOC: OIDL 11:05
PROVIDERS: Specialist; ATTENDING PHYSICIAN Internal Medicine Hematology & Oncology
DX: Z98.84 Bariatric surgery status (principal); R63.4 Abnormal weight loss; D64.9 Anemia, unspecified; R79.89 Other specified abnormal findings of blood chemistry; D63.1 Anemia in chronic kidney disease
CPT/HCPCS: 36415; 80048; 85025

== ENCOUNTER → 2024-04-17 16:02 | Outpatient (REF) | payer MEDICARE, OTHER, SELFPAY | LOC: OIDL 16:02 | PROVIDERS: ATTENDING PHYSICIAN Internal Medicine Hematology & Oncology | DX: N18.30 Chronic kidney disease, stage 3 unspecified (principal); D63.1 Anemia in chronic kidney disease; E83.110 Hereditary hemochromatosis; Z98.84 Bariatric surgery status | CPT/HCPCS: 82728 ==

== ENCOUNTER → 2024-04-19 11:22 | Outpatient (REF) | payer MEDICARE, OTHER, SELFPAY ==
[2024-04-19 11:34] LABS: % Basophils 0.4 % (0-2); % Eosinophils 2.6 % (0-6); % Immature Granulocytes 0.1 % (0-0.5); % Lymphocytes 25.6 % (20.5-51.1); % Monocytes 7.3 % (1.7-9.3); Absolute Eosinophils 0.3 10^3/uL (0-0.7); Absolute Lymphocytes 2.9 10^3/uL (1.2-3.4); Absolute Monocytes 0.8 10^3/uL (0.1-0.6); Absolute Neutrophils 7.2 10^3/uL (1.4-6.5); Hematocrit 31.6 % (37.0-47.0); Hemoglobin 10.4 g/dL (12.0-16.0); Mean Corp Hgb Conc. 32.9 g/dL (33.0-37.0); Mean Corpuscular Hgb 30.5 pg (27.0-31.0); Mean Corpuscular Volume 92.7 fL (81.0-99.0); Mean Platelet Volume 9.4 fL (7.4-10.4); Platelet Count 249 10^3/uL (130-400); Red Blood Cell Count 3.41 10^6/uL (4.20-5.40); Red Cell Dist. Width 12.5 % (11.5-14.5); White Blood Cell Count 11.2 10^3/uL (4.8-10.8)
== END ==
LOC: OIDL 11:22
PROVIDERS: ATTENDING PHYSICIAN Internal Medicine Hematology & Oncology; PRIMARYCARE PHYSICIAN Family Medicine
DX: N18.30 Chronic kidney disease, stage 3 unspecified (principal)
CPT/HCPCS: 36415; 85025

== ENCOUNTER 2024-04-20 10:56 | Outpatient (RCR) | payer MEDICARE, OTHER, SELFPAY | END 2024-04-20 23:59 | disposition home or self-care (01) | LOC: RPT 10:56 | PROVIDERS: ATTENDING PHYSICIAN Family Medicine | DX: I89.0 Lymphedema, not elsewhere classified (principal) | CPT/HCPCS: 97535 ==

== ENCOUNTER → 2024-05-03 11:09 | Outpatient (REF) | payer MEDICARE, OTHER, SELFPAY ==
[2024-05-03 11:32] LABS: % Basophils 0.6 % (0-2); % Eosinophils 4.2 % (0-6); % Immature Granulocytes 0.3 % (0-0.5); % Lymphocytes 35.9 % (20.5-51.1); % Monocytes 7.7 % (1.7-9.3); % Neutrophils 51.3 % (42.2-75.2); Absolute Eosinophils 0.3 10^3/uL (0-0.7); Absolute Lymphocytes 2.6 10^3/uL (1.2-3.4); Absolute Monocytes 0.6 10^3/uL (0.1-0.6); Absolute Neutrophils 3.7 10^3/uL (1.4-6.5); Hematocrit 33.6 % (37.0-47.0); Mean Corp Hgb Conc. 32.7 g/dL (33.0-37.0); Mean Corpuscular Hgb 30.8 pg (27.0-31.0); Mean Corpuscular Volume 94.1 fL (81.0-99.0); Mean Platelet Volume 10.1 fL (7.4-10.4); Platelet Count 159 10^3/uL (130-400); Red Blood Cell Count 3.57 10^6/uL (4.20-5.40); Red Cell Dist. Width 13.7 % (11.5-14.5); White Blood Cell Count 7.1 10^3/uL (4.8-10.8)
== END ==
LOC: OIDL 11:09
PROVIDERS: ATTENDING PHYSICIAN Internal Medicine Hematology & Oncology; FAMILY PHYSICIAN Family Medicine
DX: N18.30 Chronic kidney disease, stage 3 unspecified (principal); D63.1 Anemia in chronic kidney disease; E83.110 Hereditary hemochromatosis; Z98.84 Bariatric surgery status
CPT/HCPCS: 36415; 82728; 85025

== ENCOUNTER → 2024-05-17 11:24 | Outpatient (REF) | payer MEDICARE, OTHER, SELFPAY ==
[2024-05-17 11:42] LABS: % Basophils 0.6 % (0-2); % Eosinophils 3.9 % (0-6); % Lymphocytes 30.3 % (20.5-51.1); % Monocytes 7.7 % (1.7-9.3); % Neutrophils 57.5 % (42.2-75.2); Absolute Eosinophils 0.3 10^3/uL (0-0.7); Absolute Monocytes 0.5 10^3/uL (0.1-0.6); Absolute Neutrophils 3.9 10^3/uL (1.4-6.5); Hematocrit 31.6 % (37.0-47.0); Hemoglobin 10.1 g/dL (12.0-16.0); Mean Corpuscular Hgb 30.4 pg (27.0-31.0); Mean Corpuscular Volume 95.2 fL (81.0-99.0); Mean Platelet Volume 9.5 fL (7.4-10.4); Platelet Count 223 10^3/uL (130-400); Red Blood Cell Count 3.32 10^6/uL (4.20-5.40); Red Cell Dist. Width 13.4 % (11.5-14.5); White Blood Cell Count 6.7 10^3/uL (4.8-10.8)
[2024-05-17 12:46] LABS: Erythrocyte Sed Rate 22 mm/hour (0-20)
[2024-05-17 12:54] LABS: C-Reactive Protein < 5.00 mg/L (0.0-10.00)
== END ==
LOC: OIDL 11:24
PROVIDERS: ATTENDING PHYSICIAN Internal Medicine Hematology & Oncology; FAMILY PHYSICIAN Family Medicine; OTHER PHYSICIAN Internal Medicine
DX: N18.30 Chronic kidney disease, stage 3 unspecified (principal)
CPT/HCPCS: 36415; 82728; 85025; 85652; 86140

== ENCOUNTER 2024-05-22 10:54 | Outpatient (RCR) | payer MEDICARE, OTHER, SELFPAY | END 2024-05-29 07:40 | disposition home or self-care (01) | LOC: RPT 10:54 | PROVIDERS: ATTENDING PHYSICIAN Family Medicine | DX: I89.0 Lymphedema, not elsewhere classified (principal); Z73.6 Limitation of activities due to disability | CPT/HCPCS: 97530 ==

== ENCOUNTER → 2024-06-06 11:15 | Outpatient (REF) | payer MEDICARE, OTHER, SELFPAY ==
[2024-06-06 11:32] LABS: % Basophils 0.3 % (0-2); % Eosinophils 1.8 % (0-6); % Lymphocytes 28.6 % (20.5-51.1); % Neutrophils 61.3 % (42.2-75.2); Absolute Eosinophils 0.1 10^3/uL (0-0.7); Absolute Lymphocytes 1.8 10^3/uL (1.2-3.4); Absolute Monocytes 0.5 10^3/uL (0.1-0.6); Absolute Neutrophils 3.8 10^3/uL (1.4-6.5); Hematocrit 27.1 % (37.0-47.0); Mean Corp Hgb Conc. 33.2 g/dL (33.0-37.0); Mean Corpuscular Volume 93.4 fL (81.0-99.0); Mean Platelet Volume 9.4 fL (7.4-10.4); Platelet Count 243 10^3/uL (130-400); Red Cell Dist. Width 13.9 % (11.5-14.5); White Blood Cell Count 6.2 10^3/uL (4.8-10.8)
== END ==
LOC: OIDL 11:15
PROVIDERS: ATTENDING PHYSICIAN Internal Medicine Hematology & Oncology; FAMILY PHYSICIAN Family Medicine
DX: N18.30 Chronic kidney disease, stage 3 unspecified (principal); Z98.84 Bariatric surgery status; D63.1 Anemia in chronic kidney disease
CPT/HCPCS: 36415; 85025

== ENCOUNTER → 2024-06-12 08:27 | Outpatient (REF) | payer MEDICARE, OTHER, SELFPAY ==
[2024-06-12 08:35] VITALS: BP 118/78; BP_SYST 105
[2024-06-12] MEDS: ANCEF 10 IV (09:30)
[2024-06-12 10:25] VITALS: BP 118/75; BP_SYST 92
[2024-06-12 10:30] VITALS: BP 124/79; BP_SYST 98
[2024-06-12 10:45] VITALS: BP 126/82; BP_SYST 92
[2024-06-12 10:55] VITALS: BP 126/82
== END ==
LOC: RADI 08:27
PROVIDERS: ATTENDING PHYSICIAN Internal Medicine Hematology & Oncology; FAMILY PHYSICIAN Family Medicine
DX: E83.110 Hereditary hemochromatosis (principal)
CPT/HCPCS: 36561; 76937; 77001; 99152; 99153; C1788

== ENCOUNTER → 2024-06-15 11:09 | Outpatient (REF) | payer MEDICARE, OTHER, SELFPAY ==
[2024-06-15 11:21] LABS: % Basophils 0.3 % (0-2); % Immature Granulocytes 0.2 % (0-0.5); % Lymphocytes 23.9 % (20.5-51.1); % Monocytes 6.5 % (1.7-9.3); % Neutrophils 67.1 % (42.2-75.2); Absolute Eosinophils 0.1 10^3/uL (0-0.7); Absolute Lymphocytes 1.4 10^3/uL (1.2-3.4); Absolute Monocytes 0.4 10^3/uL (0.1-0.6); Absolute Neutrophils 4.1 10^3/uL (1.4-6.5); Hematocrit 27.9 % (37.0-47.0); Hemoglobin 9.1 g/dL (12.0-16.0); Mean Corp Hgb Conc. 32.6 g/dL (33.0-37.0); Mean Corpuscular Hgb 30.5 pg (27.0-31.0); Mean Corpuscular Volume 93.6 fL (81.0-99.0); Mean Platelet Volume 9.4 fL (7.4-10.4); Platelet Count 262 10^3/uL (130-400); Red Blood Cell Count 2.98 10^6/uL (4.20-5.40); Red Cell Dist. Width 13.4 % (11.5-14.5)
[2024-06-15 12:12] LABS: Iron 71 ug/dl (37-170)
[2024-06-15 12:21] LABS: Percent Saturation 40 % (20-50); Total Iron Binding Capacity 175 ug/dl (265-497)
== END ==
LOC: OIDL 11:09
PROVIDERS: ATTENDING PHYSICIAN Internal Medicine Hematology & Oncology
DX: Z98.84 Bariatric surgery status (principal); N18.30 Chronic kidney disease, stage 3 unspecified; D63.1 Anemia in chronic kidney disease; E83.110 Hereditary hemochromatosis
CPT/HCPCS: 36415; 82728; 83540; 83550; 85025

== ENCOUNTER → 2024-06-28 11:25 | Outpatient (REF) | payer MEDICARE, OTHER, SELFPAY ==
[2024-06-28 11:38] LABS: % Basophils 0.4 % (0-2); % Eosinophils 1.4 % (0-6); % Immature Granulocytes 0.4 % (0-0.5); % Lymphocytes 35.8 % (20.5-51.1); % Monocytes 10.8 % (1.7-9.3); % Neutrophils 51.2 % (42.2-75.2); Absolute Eosinophils 0.1 10^3/uL (0-0.7); Absolute Lymphocytes 1.8 10^3/uL (1.2-3.4); Absolute Monocytes 0.5 10^3/uL (0.1-0.6); Absolute Neutrophils 2.5 10^3/uL (1.4-6.5); Hemoglobin 10.2 g/dL (12.0-16.0); Mean Corp Hgb Conc. 31.9 g/dL (33.0-37.0); Mean Corpuscular Hgb 30.1 pg (27.0-31.0); Mean Corpuscular Volume 94.4 fL (81.0-99.0); Platelet Count 281 10^3/uL (130-400); Red Blood Cell Count 3.39 10^6/uL (4.20-5.40); Red Cell Dist. Width 13.8 % (11.5-14.5); White Blood Cell Count 4.9 10^3/uL (4.8-10.8)
== END ==
LOC: OIDL 11:25
PROVIDERS: ATTENDING PHYSICIAN Internal Medicine Hematology & Oncology
DX: Z98.84 Bariatric surgery status (principal); N18.30 Chronic kidney disease, stage 3 unspecified; D63.1 Anemia in chronic kidney disease; E83.110 Hereditary hemochromatosis
CPT/HCPCS: 36415; 82728; 85025

== ENCOUNTER → 2024-07-05 11:55 | Outpatient (REF) | payer MEDICARE, OTHER, SELFPAY | LOC: PAVMRI 11:55 | PROVIDERS: ATTENDING PHYSICIAN Specialist; FAMILY PHYSICIAN Family Medicine; OTHER PHYSICIAN Internal Medicine Endocrinology, Diabetes & Metabolism; OTHER PHYSICIAN Internal Medicine Gastroenterology; OTHER PHYSICIAN Specialist | DX: K86.2 Cyst of pancreas (principal) | CPT/HCPCS: 74183; A9575 ==

== ENCOUNTER → 2024-07-12 11:30 | Outpatient (REF) | payer MEDICARE, OTHER, SELFPAY ==
[2024-07-12 11:44] LABS: % Basophils 0.4 % (0-2); % Eosinophils 1.2 % (0-6); % Lymphocytes 20.6 % (20.5-51.1); % Monocytes 5.3 % (1.7-9.3); % Neutrophils 72.5 % (42.2-75.2); Absolute Eosinophils 0.1 10^3/uL (0-0.7); Absolute Lymphocytes 1.8 10^3/uL (1.2-3.4); Absolute Monocytes 0.5 10^3/uL (0.1-0.6); Absolute Neutrophils 6.2 10^3/uL (1.4-6.5); Hemoglobin 9.5 g/dL (12.0-16.0); Mean Corp Hgb Conc. 32.8 g/dL (33.0-37.0); Mean Corpuscular Hgb 30.3 pg (27.0-31.0); Mean Corpuscular Volume 92.4 fL (81.0-99.0); Mean Platelet Volume 9.2 fL (7.4-10.4); Platelet Count 236 10^3/uL (130-400); Red Blood Cell Count 3.14 10^6/uL (4.20-5.40); Red Cell Dist. Width 13.2 % (11.5-14.5); White Blood Cell Count 8.5 10^3/uL (4.8-10.8)
[2024-07-12 15:32] LABS: Iron 35 ug/dl (37-170)
[2024-07-12 15:42] LABS: Percent Saturation 18 % (20-50); Total Iron Binding Capacity 190 ug/dl (265-497)
== END ==
LOC: OIDL 11:30
PROVIDERS: ATTENDING PHYSICIAN Internal Medicine Hematology & Oncology
DX: Z98.84 Bariatric surgery status (principal); N18.30 Chronic kidney disease, stage 3 unspecified; D63.1 Anemia in chronic kidney disease; E83.110 Hereditary hemochromatosis
CPT/HCPCS: 36415; 82728; 83540; 83550; 85025

== ENCOUNTER → 2024-07-26 11:25 | Outpatient (REF) | payer MEDICARE, OTHER, SELFPAY ==
[2024-07-26 11:54] LABS: % Basophils 0.4 % (0-2); % Eosinophils 1.5 % (0-6); % Immature Granulocytes 0.1 % (0-0.5); % Lymphocytes 32.5 % (20.5-51.1); % Monocytes 7.3 % (1.7-9.3); % Neutrophils 58.2 % (42.2-75.2); Absolute Eosinophils 0.1 10^3/uL (0-0.7); Absolute Lymphocytes 2.5 10^3/uL (1.2-3.4); Absolute Monocytes 0.6 10^3/uL (0.1-0.6); Absolute Neutrophils 4.4 10^3/uL (1.4-6.5); Hematocrit 31.7 % (37.0-47.0); Hemoglobin 10.3 g/dL (12.0-16.0); Mean Corp Hgb Conc. 32.5 g/dL (33.0-37.0); Mean Corpuscular Hgb 29.5 pg (27.0-31.0); Mean Corpuscular Volume 90.8 fL (81.0-99.0); Mean Platelet Volume 9.6 fL (7.4-10.4); Platelet Count 228 10^3/uL (130-400); Red Blood Cell Count 3.49 10^6/uL (4.20-5.40); White Blood Cell Count 7.6 10^3/uL (4.8-10.8)
[2024-07-26 15:53] LABS: Iron 74 ug/dl (37-170)
[2024-07-26 16:03] LABS: Percent Saturation 42 % (20-50); Total Iron Binding Capacity 175 ug/dl (265-497)
[2024-07-26 16:29] LABS: Ferritin 94.1 ng/ml (11.1-264.0)
== END ==
LOC: OIDL 11:25
PROVIDERS: ATTENDING PHYSICIAN Internal Medicine Hematology & Oncology; FAMILY PHYSICIAN Family Medicine
DX: Z98.84 Bariatric surgery status (principal); N18.30 Chronic kidney disease, stage 3 unspecified; D63.1 Anemia in chronic kidney disease; E83.110 Hereditary hemochromatosis
CPT/HCPCS: 36415; 82728; 83540; 83550; 85025

== ENCOUNTER → 2024-07-28 12:17 | Outpatient (REF) | payer MEDICARE, OTHER, SELFPAY ==
[2024-07-28 12:38] LABS: Blood Urea Nitrogen 15 mg/dl (7-17)
== END ==
LOC: OIDL 12:17
PROVIDERS: ATTENDING PHYSICIAN Internal Medicine Hematology & Oncology
DX: N18.30 Chronic kidney disease, stage 3 unspecified (principal)
CPT/HCPCS: 82565; 84520

== ENCOUNTER → 2024-07-31 07:53 | Outpatient (REF) | payer MEDICARE, OTHER, SELFPAY | LOC: RAD 07:53 | PROVIDERS: ATTENDING PHYSICIAN Internal Medicine Gastroenterology; FAMILY PHYSICIAN Family Medicine; REFERRING PHYSICIAN Internal Medicine Hematology & Oncology | DX: E83.110 Hereditary hemochromatosis (principal) | CPT/HCPCS: 76700 ==

== ENCOUNTER → 2024-08-09 11:32 | Outpatient (REF) | payer MEDICARE, OTHER, SELFPAY ==
[2024-08-09 12:19] LABS: % Basophils 0.1 % (0-2); % Eosinophils 1.1 % (0-6); % Lymphocytes 22.7 % (20.5-51.1); % Monocytes 7.3 % (1.7-9.3); % Neutrophils 68.8 % (42.2-75.2); Absolute Eosinophils 0.1 10^3/uL (0-0.7); Absolute Lymphocytes 1.6 10^3/uL (1.2-3.4); Absolute Monocytes 0.5 10^3/uL (0.1-0.6); Absolute Neutrophils 4.8 10^3/uL (1.4-6.5); Hematocrit 27.3 % (37.0-47.0); Hemoglobin 8.8 g/dL (12.0-16.0); Mean Corp Hgb Conc. 32.2 g/dL (33.0-37.0); Mean Corpuscular Hgb 29.5 pg (27.0-31.0); Mean Corpuscular Volume 91.6 fL (81.0-99.0); Mean Platelet Volume 9.7 fL (7.4-10.4); Platelet Count 223 10^3/uL (130-400); Red Blood Cell Count 2.98 10^6/uL (4.20-5.40); Red Cell Dist. Width 14.4 % (11.5-14.5)
[2024-08-09 14:08] LABS: Iron 48 ug/dl (37-170)
[2024-08-09 14:17] LABS: Percent Saturation 26 % (20-50); Total Iron Binding Capacity 179 ug/dl (265-497)
[2024-08-09 14:43] LABS: Ferritin 88.6 ng/ml (11.1-264.0)
== END ==
LOC: OIDL 11:32
PROVIDERS: ATTENDING PHYSICIAN Internal Medicine Hematology & Oncology
DX: Z98.84 Bariatric surgery status (principal); N18.30 Chronic kidney disease, stage 3 unspecified; D63.1 Anemia in chronic kidney disease; E83.110 Hereditary hemochromatosis
CPT/HCPCS: 36415; 82728; 83540; 83550; 85025

== ENCOUNTER → 2024-08-24 11:42 | Outpatient (REF) | payer MEDICARE, OTHER, SELFPAY ==
[2024-08-24 12:08] LABS: % Basophils 0.4 % (0-2); % Eosinophils 0.9 % (0-6); % Monocytes 6.9 % (1.7-9.3); % Neutrophils 60.8 % (42.2-75.2); Absolute Lymphocytes 1.5 10^3/uL (1.2-3.4); Absolute Monocytes 0.3 10^3/uL (0.1-0.6); Absolute Neutrophils 2.8 10^3/uL (1.4-6.5); Hemoglobin 9.9 g/dL (12.0-16.0); Mean Corpuscular Hgb 29.6 pg (27.0-31.0); Mean Corpuscular Volume 89.8 fL (81.0-99.0); Platelet Count 207 10^3/uL (130-400); Red Blood Cell Count 3.34 10^6/uL (4.20-5.40); Red Cell Dist. Width 14.5 % (11.5-14.5); White Blood Cell Count 4.7 10^3/uL (4.8-10.8)
[2024-08-24 13:53] LABS: ALT (SGPT) 42 U/L (0-35); AST (SGOT) 65 U/L (14-36); Albumin 3.2 g/dl (3.5-5.0); Alkaline Phosphatase 113 U/L (38-126); Blood Urea Nitrogen 13 mg/dl (7-17); Calcium 8.4 mg/dl (8.4-10.2); Carbon Dioxide 25 mmol/L (22-30); Chloride 103 mmol/L (98-107); Glucose 139 mg/dl (70-99); HDL Cholesterol 48 mg/dl; LDL Cholesterol, Calculated 18 mg/dl; Potassium 3.5 mmol/L (3.5-5.1); Sodium 137 mmol/L (135-145); Total Bilirubin 0.7 mg/dl (0.2-1.3); Total Cholesterol 76 mg/dl (50-199); Total Protein 5.9 g/dl (6.3-8.2); Triglyceride 53 mg/dl (10-149); Very Low Density Lipoprotein 10 mg/dl (0-30)
[2024-08-24 14:23] LABS: TSH 1.61 uIU/ml (0.47-4.68)
[2024-08-24 14:34] LABS: Glycohemoglobin (HgbA1c) 4.8 % (4.0-5.6)
[2024-08-24 20:35] LABS: AFP Male/Tumor Marker 1.92 ng/ml
== END ==
LOC: OIDL 11:42
PROVIDERS: Internal Medicine Endocrinology, Diabetes & Metabolism; Internal Medicine Gastroenterology; ATTENDING PHYSICIAN Internal Medicine Hematology & Oncology; FAMILY PHYSICIAN Family Medicine
DX: Z98.84 Bariatric surgery status (principal); N18.30 Chronic kidney disease, stage 3 unspecified; D63.1 Anemia in chronic kidney disease; E83.110 Hereditary hemochromatosis; E11.9 Type 2 diabetes mellitus without complications
CPT/HCPCS: 36415; 80053; 80061; 82105; 82728; 83036; 84443; 85025

== ENCOUNTER → 2024-09-06 11:38 | Outpatient (REF) | payer MEDICARE, OTHER, SELFPAY ==
[2024-09-06 12:08] LABS: % Basophils 0.2 % (0-2); % Eosinophils 0.4 % (0-6); % Immature Granulocytes 0.2 % (0-0.5); % Monocytes 5.9 % (1.7-9.3); % Neutrophils 60.3 % (42.2-75.2); Absolute Lymphocytes 1.7 10^3/uL (1.2-3.4); Absolute Monocytes 0.3 10^3/uL (0.1-0.6); Absolute Neutrophils 3.2 10^3/uL (1.4-6.5); Hematocrit 31.4 % (37.0-47.0); Hemoglobin 10.2 g/dL (12.0-16.0); Mean Corp Hgb Conc. 32.5 g/dL (33.0-37.0); Mean Corpuscular Hgb 29.3 pg (27.0-31.0); Mean Corpuscular Volume 90.2 fL (81.0-99.0); Mean Platelet Volume 9.3 fL (7.4-10.4); Platelet Count 238 10^3/uL (130-400); Red Blood Cell Count 3.48 10^6/uL (4.20-5.40); Red Cell Dist. Width 14.8 % (11.5-14.5); White Blood Cell Count 5.2 10^3/uL (4.8-10.8)
[2024-09-06 13:03] LABS: Iron 76 ug/dl (37-170)
[2024-09-06 13:12] LABS: Percent Saturation 41 % (20-50); Total Iron Binding Capacity 181 ug/dl (265-497)
== END ==
LOC: OIDL 11:38
PROVIDERS: ATTENDING PHYSICIAN Internal Medicine Hematology & Oncology
DX: N18.30 Chronic kidney disease, stage 3 unspecified (principal)
CPT/HCPCS: 36415; 82728; 83540; 83550; 85025

== ENCOUNTER → 2024-09-20 09:39 | Outpatient (REF) | payer MEDICARE, OTHER, SELFPAY ==
[2024-09-20 09:56] LABS: % Basophils 0.3 % (0-2); % Eosinophils 1.5 % (0-6); % Immature Granulocytes 0.2 % (0-0.5); % Lymphocytes 37.5 % (20.5-51.1); % Monocytes 7.4 % (1.7-9.3); % Neutrophils 53.1 % (42.2-75.2); Absolute Eosinophils 0.1 10^3/uL (0-0.7); Absolute Lymphocytes 2.2 10^3/uL (1.2-3.4); Absolute Monocytes 0.4 10^3/uL (0.1-0.6); Absolute Neutrophils 3.2 10^3/uL (1.4-6.5); Hematocrit 31.2 % (37.0-47.0); Mean Corp Hgb Conc. 32.1 g/dL (33.0-37.0); Mean Corpuscular Hgb 29.1 pg (27.0-31.0); Mean Corpuscular Volume 90.7 fL (81.0-99.0); Mean Platelet Volume 9.5 fL (7.4-10.4); Platelet Count 276 10^3/uL (130-400); Red Blood Cell Count 3.44 10^6/uL (4.20-5.40); Red Cell Dist. Width 14.5 % (11.5-14.5)
[2024-09-20 11:05] LABS: Blood Urea Nitrogen 17 mg/dl (7-17); Calcium 8.1 mg/dl (8.4-10.2); Carbon Dioxide 28 mmol/L (22-30); Chloride 104 mmol/L (98-107); Glucose 82 mg/dl (70-99); Iron 80 ug/dl (37-170); Magnesium 1.6 mg/dl (1.6-2.3); Potassium 3.3 mmol/L (3.5-5.1); Sodium 141 mmol/L (135-145)
[2024-09-20 11:14] LABS: Percent Saturation 41 % (20-50); Total Iron Binding Capacity 191 ug/dl (265-497)
== END ==
LOC: OIDL 09:39
PROVIDERS: ATTENDING PHYSICIAN Internal Medicine Hematology & Oncology; FAMILY PHYSICIAN Family Medicine; OTHER PHYSICIAN Specialist
DX: N18.30 Chronic kidney disease, stage 3 unspecified (principal)
CPT/HCPCS: 36415; 80048; 82728; 83540; 83550; 83735; 85025

== ENCOUNTER → 2024-09-29 11:22 | Outpatient (REF) | payer MEDICARE, OTHER, SELFPAY ==
[2024-09-29 12:44] LABS: Blood Urea Nitrogen 15 mg/dl (7-17); Calcium 7.8 mg/dl (8.4-10.2); Carbon Dioxide 23 mmol/L (22-30); Chloride 107 mmol/L (98-107); Glucose 106 mg/dl (70-99); Osmolality Serum 297 mOsm/kg (275-300); Potassium 4.4 mmol/L (3.5-5.1); Sodium 141 mmol/L (135-145); eGFR 47.96
[2024-10-04 07:58] LABS: Aldosterone, Serum 31.3 ng/dL; Aldosterone/Renin Activ Ratio 16.5 ratio (<=25.0); Renin Activity Results 1.9 ng/mL/hr
== END ==
LOC: OIDL 11:22
PROVIDERS: ATTENDING PHYSICIAN Specialist; OTHER PHYSICIAN Internal Medicine Hematology & Oncology
DX: I10 Essential (primary) hypertension (principal)
CPT/HCPCS: 36415; 80048; 82088; 83930; 84244

== ENCOUNTER → 2024-10-04 11:25 | Outpatient (REF) | payer MEDICARE, OTHER, SELFPAY ==
[2024-10-04 11:47] LABS: % Basophils 0.3 % (0-2); % Eosinophils 2.2 % (0-6); % Immature Granulocytes 0.2 % (0-0.5); % Lymphocytes 27.9 % (20.5-51.1); % Neutrophils 61.4 % (42.2-75.2); Absolute Eosinophils 0.1 10^3/uL (0-0.7); Absolute Lymphocytes 1.8 10^3/uL (1.2-3.4); Absolute Monocytes 0.5 10^3/uL (0.1-0.6); Hematocrit 29.7 % (37.0-47.0); Hemoglobin 9.3 g/dL (12.0-16.0); Mean Corp Hgb Conc. 31.3 g/dL (33.0-37.0); Mean Corpuscular Hgb 29.2 pg (27.0-31.0); Mean Corpuscular Volume 93.4 fL (81.0-99.0); Mean Platelet Volume 9.3 fL (7.4-10.4); Platelet Count 258 10^3/uL (130-400); Red Blood Cell Count 3.18 10^6/uL (4.20-5.40); Red Cell Dist. Width 14.9 % (11.5-14.5); White Blood Cell Count 6.5 10^3/uL (4.8-10.8)
[2024-10-04 13:19] LABS: Iron 32 ug/dl (37-170)
[2024-10-04 13:26] LABS: Osmolality Urine 474 mOsm/kg (300-900)
[2024-10-04 13:29] LABS: Percent Saturation 16 % (20-50); Total Iron Binding Capacity 192 ug/dl (265-497)
[2024-10-04 13:50] LABS: Ferritin 95.6 ng/ml (11.1-264.0)
[2024-10-04 14:40] LABS: Urine Sodium 157 mmol/L (30-90)
== END ==
LOC: OIDL 11:25
PROVIDERS: ATTENDING PHYSICIAN Internal Medicine Hematology & Oncology
DX: N18.30 Chronic kidney disease, stage 3 unspecified (principal)
CPT/HCPCS: 36415; 82728; 83540; 83550; 83935; 84133; 84300; 85025

== ENCOUNTER → 2024-10-18 11:25 | Outpatient (REF) | payer MEDICARE, OTHER, SELFPAY ==
[2024-10-18 12:44] LABS: % Basophils 0.4 % (0-2); % Eosinophils 1.5 % (0-6); % Immature Granulocytes 0.2 % (0-0.5); % Lymphocytes 18.8 % (20.5-51.1); % Monocytes 6.8 % (1.7-9.3); % Neutrophils 72.3 % (42.2-75.2); Absolute Eosinophils 0.1 10^3/uL (0-0.7); Absolute Lymphocytes 1.5 10^3/uL (1.2-3.4); Absolute Monocytes 0.6 10^3/uL (0.1-0.6); Absolute Neutrophils 5.9 10^3/uL (1.4-6.5); Hematocrit 28.7 % (37.0-47.0); Hemoglobin 9.3 g/dL (12.0-16.0); Mean Corp Hgb Conc. 32.4 g/dL (33.0-37.0); Mean Corpuscular Hgb 29.7 pg (27.0-31.0); Mean Corpuscular Volume 91.7 fL (81.0-99.0); Mean Platelet Volume 9.4 fL (7.4-10.4); Platelet Count 249 10^3/uL (130-400); Red Blood Cell Count 3.13 10^6/uL (4.20-5.40); Red Cell Dist. Width 13.7 % (11.5-14.5); White Blood Cell Count 8.1 10^3/uL (4.8-10.8)
[2024-10-18 13:38] LABS: Iron 69 ug/dl (37-170); Percent Saturation 31 % (20-50); Total Iron Binding Capacity 220 ug/dl (265-497)
[2024-10-18 14:03] LABS: Ferritin 98.9 ng/ml (11.1-264.0)
== END ==
LOC: OIDL 11:25
PROVIDERS: ATTENDING PHYSICIAN Internal Medicine Hematology & Oncology
DX: N18.30 Chronic kidney disease, stage 3 unspecified (principal)
CPT/HCPCS: 36415; 82728; 83540; 83550; 85025

== ENCOUNTER → 2024-10-25 12:27 | Outpatient (REF) | payer MEDICARE, OTHER, SELFPAY ==
[2024-10-25 14:26] LABS: Albumin 3.7 g/dl (3.5-5.0); Blood Urea Nitrogen 21 mg/dl (7-17); Calcium 8.8 mg/dl (8.4-10.2); Carbon Dioxide 24 mmol/L (22-30); Chloride 104 mmol/L (98-107); Glucose 82 mg/dl (70-99); Phosphorus 4.6 mg/dl (2.5-4.5); Potassium 3.8 mmol/L (3.5-5.1); Sodium 139 mmol/L (135-145); eGFR 58.61
== END ==
LOC: REG 12:27
PROVIDERS: ATTENDING PHYSICIAN Specialist; FAMILY PHYSICIAN Family Medicine
DX: N17.9 Acute kidney failure, unspecified (principal); N18.31 Chronic kidney disease, stage 3a; I10 Essential (primary) hypertension
CPT/HCPCS: 36415; 80069

== ENCOUNTER 2024-11-15 12:58 | Outpatient (RCR) | payer MEDICARE, OTHER, SELFPAY ==
[2024-11-02 12:00] VITALS: BP 119/76
[2024-11-02 12:18] LABS: % Basophils 0.1 % (0-2); % Immature Granulocytes 0.1 % (0-0.5); % Lymphocytes 17.6 % (20.5-51.1); % Monocytes 6.9 % (1.7-9.3); % Neutrophils 74.3 % (42.2-75.2); Absolute Eosinophils 0.1 10^3/uL (0-0.7); Absolute Lymphocytes 1.5 10^3/uL (1.2-3.4); Absolute Monocytes 0.6 10^3/uL (0.1-0.6); Absolute Neutrophils 6.1 10^3/uL (1.4-6.5); Hematocrit 29.6 % (37.0-47.0); Hemoglobin 9.5 g/dL (12.0-16.0); Mean Corp Hgb Conc. 32.1 g/dL (33.0-37.0); Mean Corpuscular Hgb 29.3 pg (27.0-31.0); Mean Corpuscular Volume 91.4 fL (81.0-99.0); Mean Platelet Volume 9.3 fL (7.4-10.4); Platelet Count 216 10^3/uL (130-400); Red Blood Cell Count 3.24 10^6/uL (4.20-5.40); Red Cell Dist. Width 13.7 % (11.5-14.5); White Blood Cell Count 8.3 10^3/uL (4.8-10.8)
[2024-11-02 12:50] LABS: Iron 57 ug/dl (37-170)
[2024-11-02 13:00] LABS: Percent Saturation 27 % (20-50); Total Iron Binding Capacity 211 ug/dl (265-497)
[2024-11-02 14:46] LABS: Ferritin 52.9 ng/ml (11.1-264.0)
[2024-11-15 13:10] VITALS: BP 130/79
[2024-11-15 13:32] LABS: % Basophils 0.4 % (0-2); % Eosinophils 1.4 % (0-6); % Immature Granulocytes 0.1 % (0-0.5); % Lymphocytes 27.9 % (20.5-51.1); % Monocytes 7.3 % (1.7-9.3); % Neutrophils 62.9 % (42.2-75.2); Absolute Eosinophils 0.1 10^3/uL (0-0.7); Absolute Lymphocytes 2.1 10^3/uL (1.2-3.4); Absolute Monocytes 0.5 10^3/uL (0.1-0.6); Absolute Neutrophils 4.6 10^3/uL (1.4-6.5); Hematocrit 31.2 % (37.0-47.0); Hemoglobin 10.3 g/dL (12.0-16.0); Mean Corpuscular Hgb 29.6 pg (27.0-31.0); Mean Corpuscular Volume 89.7 fL (81.0-99.0); Mean Platelet Volume 9.5 fL (7.4-10.4); Platelet Count 213 10^3/uL (130-400); Red Blood Cell Count 3.48 10^6/uL (4.20-5.40); Red Cell Dist. Width 13.3 % (11.5-14.5); White Blood Cell Count 7.4 10^3/uL (4.8-10.8)
[2024-11-15 15:26] LABS: Iron 48 ug/dl (37-170)
[2024-11-15 15:35] LABS: Percent Saturation 20 % (20-50); Total Iron Binding Capacity 231 ug/dl (265-497)
[2024-11-15 16:04] LABS: Ferritin 53.3 ng/ml (11.1-264.0)
== END 2024-11-24 13:14 | disposition home or self-care (01) ==
LOC: OID 12:58
PROVIDERS: ATTENDING PHYSICIAN Internal Medicine Hematology & Oncology; FAMILY PHYSICIAN Family Medicine
DX: E83.110 Hereditary hemochromatosis (principal); Z98.84 Bariatric surgery status; N18.30 Chronic kidney disease, stage 3 unspecified; D63.1 Anemia in chronic kidney disease
CPT/HCPCS: 36591; 82728; 83540; 83550; 85025; 96523

== ENCOUNTER → 2024-12-09 08:51 | Outpatient (REF) | payer MEDICARE, OTHER, SELFPAY ==
[2024-12-09 09:59] LABS: % Basophils 0.6 % (0-2); % Eosinophils 1.3 % (0-6); % Immature Granulocytes 0.2 % (0-0.5); % Lymphocytes 25.6 % (20.5-51.1); % Monocytes 8.8 % (1.7-9.3); % Neutrophils 63.5 % (42.2-75.2); Absolute Eosinophils 0.1 10^3/uL (0-0.7); Absolute Lymphocytes 1.2 10^3/uL (1.2-3.4); Absolute Monocytes 0.4 10^3/uL (0.1-0.6); Absolute Neutrophils 2.9 10^3/uL (1.4-6.5); Hematocrit 33.6 % (37.0-47.0); Hemoglobin 10.9 g/dL (12.0-16.0); Mean Corp Hgb Conc. 32.4 g/dL (33.0-37.0); Mean Corpuscular Hgb 28.7 pg (27.0-31.0); Mean Corpuscular Volume 88.4 fL (81.0-99.0); Mean Platelet Volume 10.1 fL (7.4-10.4); Nucleated Red Blood Cells % 0 %; Platelet Count 208 10^3/uL (130-400); Red Cell Dist. Width 14.5 % (11.5-14.5); White Blood Cell Count 4.6 10^3/uL (4.8-10.8)
[2024-12-09 10:14] LABS: ALT (SGPT) 60 U/L (0-35); AST (SGOT) 91 U/L (14-36); Albumin 4.5 g/dl (3.5-5.0); Alkaline Phosphatase 142 U/L (38-126); Blood Urea Nitrogen 16 mg/dl (7-17); Calcium 9.4 mg/dl (8.4-10.2); Carbon Dioxide 24 mmol/L (22-30); Chloride 107 mmol/L (98-107); Glucose 92 mg/dl (70-99); Phosphorus 4.4 mg/dl (2.5-4.5); Potassium 3.9 mmol/L (3.5-5.1); Sodium 144 mmol/L (135-145); Total Bilirubin 0.8 mg/dl (0.2-1.3); Total Protein 7.2 g/dl (6.3-8.2); eGFR 58.61
[2024-12-09 10:20] LABS: C-Reactive Protein < 5.00 mg/L (0.0-10.00)
[2024-12-09 10:29] LABS: Erythrocyte Sed Rate 26 mm/hour (0-20)
== END ==
LOC: REG 08:51
PROVIDERS: ATTENDING PHYSICIAN Specialist; FAMILY PHYSICIAN Family Medicine; REFERRING PHYSICIAN Internal Medicine
DX: N18.31 Chronic kidney disease, stage 3a (principal); M05.9 Rheumatoid arthritis with rheumatoid factor, unspecified; Z51.81 Encounter for therapeutic drug level monitoring
CPT/HCPCS: 36415; 80053; 84100; 85025; 85652; 86140

== ENCOUNTER 2024-12-20 10:40 | Outpatient (RCR) | payer MEDICARE, OTHER, SELFPAY ==
[2024-11-29 14:18] LABS: % Basophils 0.1 % (0-2); % Eosinophils 0.3 % (0-6); % Immature Granulocytes 0.1 % (0-0.5); % Lymphocytes 12.4 % (20.5-51.1); % Monocytes 5.6 % (1.7-9.3); % Neutrophils 81.5 % (42.2-75.2); Absolute Lymphocytes 0.9 10^3/uL (1.2-3.4); Absolute Monocytes 0.4 10^3/uL (0.1-0.6); Absolute Neutrophils 5.8 10^3/uL (1.4-6.5); Hematocrit 29.2 % (37.0-47.0); Hemoglobin 9.5 g/dL (12.0-16.0); Mean Corp Hgb Conc. 32.5 g/dL (33.0-37.0); Mean Platelet Volume 9.3 fL (7.4-10.4); Platelet Count 277 10^3/uL (130-400); Red Blood Cell Count 3.28 10^6/uL (4.20-5.40); Red Cell Dist. Width 13.9 % (11.5-14.5); White Blood Cell Count 7.1 10^3/uL (4.8-10.8)
[2024-11-29 14:19] VITALS: BP 114/67
[2024-11-29 15:29] LABS: Iron 51 ug/dl (37-170)
[2024-11-29 15:39] LABS: Percent Saturation 22 % (20-50); Total Iron Binding Capacity 228 ug/dl (265-497)
[2024-11-29 16:05] LABS: Ferritin 51.2 ng/ml (11.1-264.0)
[2024-12-20 11:01] VITALS: BP 106/68
[2024-12-20 11:23] LABS: % Basophils 0.4 % (0-2); % Eosinophils 0.8 % (0-6); % Immature Granulocytes 0.4 % (0-0.5); % Monocytes 6.3 % (1.7-9.3); % Neutrophils 62.1 % (42.2-75.2); Absolute Eosinophils 0.1 10^3/uL (0-0.7); Absolute Lymphocytes 2.1 10^3/uL (1.2-3.4); Absolute Monocytes 0.5 10^3/uL (0.1-0.6); Absolute Neutrophils 4.4 10^3/uL (1.4-6.5); Hematocrit 29.2 % (37.0-47.0); Hemoglobin 9.4 g/dL (12.0-16.0); Mean Corp Hgb Conc. 32.2 g/dL (33.0-37.0); Mean Corpuscular Hgb 28.7 pg (27.0-31.0); Mean Platelet Volume 9.3 fL (7.4-10.4); Platelet Count 255 10^3/uL (130-400); Red Blood Cell Count 3.28 10^6/uL (4.20-5.40); White Blood Cell Count 7.1 10^3/uL (4.8-10.8)
[2024-12-20 12:16] LABS: Iron 48 ug/dl (37-170)
[2024-12-20 12:25] LABS: Percent Saturation 22 % (20-50); Total Iron Binding Capacity 216 ug/dl (265-497)
[2024-12-20 12:42] LABS: Ferritin 47.3 ng/ml (11.1-264.0)
[2024-12-22 08:23] LABS: Quantiferon Mitogen minus NIL 9.93 IU/mL; Quantiferon NIL 0.07 IU/mL; Quantiferon Plus TB1 minus NIL 0.02 IU/mL (<=0.34); Quantiferon Plus TB2 minus NIL 0.05 IU/mL (<=0.34); Quantiferon TB Gold Plus Negative (Negative)
== END 2024-12-21 08:32 | disposition home or self-care (01) ==
LOC: OID 10:40
PROVIDERS: Internal Medicine; ATTENDING PHYSICIAN Internal Medicine Hematology & Oncology; FAMILY PHYSICIAN Family Medicine
DX: E83.110 Hereditary hemochromatosis (principal); N18.30 Chronic kidney disease, stage 3 unspecified; D63.1 Anemia in chronic kidney disease; Z98.84 Bariatric surgery status
CPT/HCPCS: 36591; 82728; 83540; 83550; 85025; 86480; 96523

== ENCOUNTER → 2024-12-26 12:41 | Outpatient (REF) | payer MEDICARE, OTHER, SELFPAY | LOC: WOUND 12:41 | PROVIDERS: ATTENDING PHYSICIAN Surgery; FAMILY PHYSICIAN Family Medicine | DX: L97.519 Non-pressure chronic ulcer of other part of right foot with unspecified severity (principal); N18.31 Chronic kidney disease, stage 3a; E11.22 Type 2 diabetes mellitus with diabetic chronic kidney disease; I50.20 Unspecified systolic (congestive) heart failure; I13.0 Hypertensive heart and chronic kidney disease with heart failure and stage 1 through stage 4 chronic kidney disease, or unspecified chronic kidney disease | CPT/HCPCS: 99205 ==

== ENCOUNTER 2024-12-26 13:17 | Emergency (ER) | payer MEDICARE, OTHER, SELFPAY ==
[2024-12-26 13:18] VITALS: BP 134/87
--- NOTE | 2024-12-26 15:02 | ED.SKININJ ---
HPI-Injury
General
Chief Complaint: Skin Problem
Source: patient
Exam Limitations: none
Time Seen by Provider: 12/26/24 14:46
Nursing documentation reviewed up to this point in time: agreed with
History of Present Illness-Injury
Is this injury a work related problem?: No
Is pt an associate of [facility]?: No
Initial Injury comments:
Patient to ED from wound care center for evaluation of right toes 3,4,5. SHe states over the past 2 weeks toes have gotten red, swollen and painful. Small wounds noted on plantar surface of toes 3,4, large necrotic wound noted on plantar surface
of 5th toe. She denies fever/chills. She was seen at the wound center approx 4 years ago for wound to right great toe that eventually healed. She states shortly after she developed a wound to her right distal 2nd toe that she manage herself.
States distal 2nd toe 'eventually fell off'. No issues since. Transported by [facility] to ED.
Past History
Past History
ED Past Medical History: Arrthythmia (Tachycardia), Asthma, CAD, CHF, COPD, Fibromyalgia, GERD, HTN, Hypothyroidism, Psychiatric (Anxiety, Depression), Other (Migraines, Neuropathy, Arms and leg numbness, Restless leg syndrome, Sleep apnea,
Ideopathic edema Diverticulitis, Hiatal hernia, IBS, Gastroparesis, PNA, Edema,) and Other (Endometriosis, Uterine fibroid, PCOS, Eczema, Macular degeneration, Iron Def anemia, Pancreatic enzyme insufficiency, Hemochromotosis, back pain, Liver
biopsy)
ED Past Surgical History: Cholecystectomy, Gynecological (Ovarian cyst surgery X 3), Orthopedic (Bilateral knee surgery, Right finger surgery, ), Tonsilectomy (and adenoids) and Other (Laparoscopies, Duodenal switch , Cataracts, Hernia repair,
Uvelectomy)
Social History
Tobacco: Non-smoker
Alcohol: None
Drug: None
Personal:
Living: with family
Family History
Family History: Diabetes
Review of Systems
Review of Systems
Allergies reviewed?: Yes
All Other Systems: ROS reviewed and negative except as documented in HPI and ROS
Constitutional: Reports no symptoms
EENT: Reports no symptoms
Respiratory: Reports no symptoms
Cardiac: Reports no symptoms
ABD/GI: Reports no symptoms
: Reports no symptoms
Musculoskeletal: Reports joint pain (Pain to toes 3,4,5 on right)
Skin: Reports other (erythema and swelling to right toes 3,4,5. Wounds to plantar surface of distal toes 3,4,5)
Neurological: Reports no symptoms
Psychiatric: Reports no symptoms
Phy Exam
General Physical Exam
General Presentation: well appearing and mild distress
General age: appears stated age
General Skin: warm and dry
General Habitus: normal
General Mental: alert
Cardiovascular Exam
Cardiovascular Exam: regular rate/rhythm and no edema
Musculoskeletal Exam
Musculoskeletal Exam: full ROM and neuro vasc intact
Skin Exam
Skin Exam: other (wounds on distal right toes 3,4,5. Erythema, pain, and swelling to these toes as well)
Psychiatric Exam
Psychiatric Exam: normal mood/affect
Course
Orders/Labs/Results
Orders:
Orders
12/26/24 15:01
Foot, Right 3 View [CR Foot - Right Min 3 Views] Urgent
Comment:
Reason For Exam: cellulitis toes 3,4,5
12/26/24 16:03
Complete Blood Count/With Diff Urgent
Comprehensive Metabolic Panel Urgent
12/26/24 17:56
Doxycycline [Vibramycin] 100 mg PO NOW STA
12/26/24 18:08
Wound Culture [Wound/Abscess/Other Culture] Urgent
RAGHU Source: Toe
Specimen Description:
Date Specimen was Collected: 12/26/24
Time Specimen was Collected: 18:02
12/26/24 18:20
Heparin 5,000 units .ROUTE .STK-MED ONE
12/26/24 18:21
Heparin Pf [Heparin Lock Flush] 500 unit .ROUTE .STK-MED ONE
Abnormal Lab Results
12/26/24
16:03
RBC 3.21 L 10^6/uL
(4.20-5.40)
Hgb 9.3 L g/dL
(12.0-16.0)
Hct 28.2 L %
(37.0-47.0)
Chloride 110 H mmol/L
(98-107)
BUN 18 H mg/dl
(7-17)
AST 37 H U/L
(14-36)
Total Protein 5.6 L g/dl
(6.3-8.2)
Albumin 3.1 L g/dl
(3.5-5.0)
12/26/24 16:03
12/26/24 16:03
Vital Signs
Initial and Last Documented VS:
Initial Vital Signs
Temp Pulse Resp BP Pulse Ox
98.7 F 107 18 134/87 100
12/26/24 13:18 12/26/24 13:18 12/26/24 13:18 12/26/24 13:18 12/26/24 13:18
Last Documented Vital Signs
Temp Pulse Resp BP Pulse Ox
98.7 F 80 16 125/78 97
12/26/24 13:18 12/26/24 18:17 12/26/24 18:17 12/26/24 18:17 12/26/24 18:17
*Critical Care Note
Total Time (30-74mins, 75-104mins- exclusive of procedures): Not Applicable
Update Note
Update Note:
Patient sent to ED from [facility] for evaluation of wounds on right 3,4.5 toes. She reports redness and pain developed over the past few days. Labs reviewed, WBC normal. Afebrile. No evidence of osteomyelitis on xray. Nontoxic appearing. Will need
debridement of right plantar 5th toe. Will place on antibiotics, discharge home and she will follow up with Wound center for further treatment. Given instructions on s/s to return to ED and she is agreeable to plan.
ED Attending Note
-
Portions of this chart may have been created with voice recognition software.� Occasional wrong word or��sound alike� substitutions may have occurred due to the inherent limitations of voice recognition software.
Discharge Plan
Departure
Patient Disposition: Home (Routine Discharge)
Date of Disposition: 12/26/24
Time of Disposition: 17:57
Patient with high blood pressure during this ER visit?: No
Condition: Good
Covid-19: Not Applicable
Discharge Problem:
Cellulitis of all toes of right foot
Instructions: Wound Care (DC), Cellulitis (Skin Infection), Adult (DC), [facility]
Prescriptions:
New
doxycycline hyclate 100 mg capsule
100 mg PO BID Qty: 20 0RF
No Action
levothyroxine 50 MCG tablet
50 mcg PO DAILY@0700
omeprazole 40 MG capsule,delayed release(DR/EC)
40 mg PO DAILY
cyclobenzaprine 10 MG tablet
10 mg PO DAILY
docusate sodium 100 MG capsule
100 mg PO DAILYPRN PRN (Reason: constipation)
fluticasone propionate 1 SPRAY spray,suspension
2 spray intranasal DAILY PRN (Reason: congestion)
multivitamin Tablet
1 tab PO DAILY
zolpidem 10 mg Tablet
10 mg PO HSPRN PRN (Reason: insomnia)
Patient Comments:
01/30/2024: last filled 01/05/24, 30 tabs for 30 days from [facility]
famotidine 40 mg Tablet
40 mg PO HS
cyclobenzaprine 10 mg Tablet
20 mg PO DAILY@1999
ropinirole 4 mg Tablet
4 mg PO HS PRN (Reason: restless leg)
bupropion HCl 150 mg tablet extended release 24 hr
150 mg PO DAILY
furosemide 40 mg tablet
40 mg PO DAILYPRN PRN (Reason: 2 lb weight gain)
diclofenac sodium 1 % Gel
1 ea TOPICAL DAILY PRN (Reason: back and leg pain)
Mounjaro 5 mg/0.5 mL Pen Injector
5 mg SC QWEEK
potassium chloride 20 mEq packet
20 meq PO TID
Referrals:
Wound Care Center [Outside] - Tomorrow
Roxy Hussein MD [Family Provider] -
Activity Restrictions/Additional Instructions:
Return to the emergency department for any changes in/worsening of your symptoms
Interventions
Interventions:
*Risk Screen - Suicide Last Done: 12/26/24 13:18
*General Assessment Last Done: 12/26/24 13:18
*Neglect/Abuse Screening Last Done: 12/26/24 13:18
*ED- Fall Risk Assessment Last Done: 12/26/24 15:33
*ED COVID-19 Vaccine History Last Done: 12/26/24 13:18
*Nursing Disposition Last Done: 12/26/24 18:23
ED-Skin Assessment Last Done: 12/26/24 15:34
Discharge Date and Time
Discharge Date/Time: 12/26/24 18:28
Print Language: RUSSIAN
[2024-12-26 15:33] VITALS: BMI 22.7
[2024-12-26 15:43] VITALS: BP 110/85
[2024-12-26 16:13] LABS: % Basophils 0.4 % (0-2); % Eosinophils 1.1 % (0-6); % Immature Granulocytes 0.3 % (0-0.5); % Lymphocytes 26.8 % (20.5-51.1); % Monocytes 6.8 % (1.7-9.3); % Neutrophils 64.6 % (42.2-75.2); Absolute Eosinophils 0.1 10^3/uL (0-0.7); Absolute Monocytes 0.5 10^3/uL (0.1-0.6); Absolute Neutrophils 4.9 10^3/uL (1.4-6.5); Hematocrit 28.2 % (37.0-47.0); Hemoglobin 9.3 g/dL (12.0-16.0); Mean Corpuscular Volume 87.9 fL (81.0-99.0); Mean Platelet Volume 9.2 fL (7.4-10.4); Nucleated Red Blood Cells % 0 %; Platelet Count 280 10^3/uL (130-400); Red Blood Cell Count 3.21 10^6/uL (4.20-5.40); Red Cell Dist. Width 14.1 % (11.5-14.5); White Blood Cell Count 7.5 10^3/uL (4.8-10.8)
[2024-12-26 16:26] LABS: ALT (SGPT) 27 U/L (0-35); AST (SGOT) 37 U/L (14-36); Albumin 3.1 g/dl (3.5-5.0); Alkaline Phosphatase 125 U/L (38-126); Blood Urea Nitrogen 18 mg/dl (7-17); Calcium 8.8 mg/dl (8.4-10.2); Carbon Dioxide 25 mmol/L (22-30); Chloride 110 mmol/L (98-107); Estimated Creatinine Clearance 51 ml/min; Glucose 87 mg/dl (70-99); Potassium 3.9 mmol/L (3.5-5.1); Sodium 143 mmol/L (135-145); Total Bilirubin 0.3 mg/dl (0.2-1.3); Total Protein 5.6 g/dl (6.3-8.2); eGFR > 60.00
[2024-12-26] MEDS: VIBRAMYCIN 100 MG PO (18:10)
[2024-12-26 18:17] VITALS: BP 125/78
== END 2024-12-26 18:28 | disposition home or self-care (01) ==
LOC: EMR 13:17
PROVIDERS: Nurse Practitioner; EMERGENCY PHYSICIAN Emergency Medicine; FAMILY PHYSICIAN Family Medicine
DX: L03.031 Cellulitis of right toe (principal); E03.9 Hypothyroidism, unspecified; G25.81 Restless legs syndrome; G47.30 Sleep apnea, unspecified; I11.0 Hypertensive heart disease with heart failure; I50.9 Heart failure, unspecified; I25.10 Atherosclerotic heart disease of native coronary artery without angina pectoris; M79.7 Fibromyalgia; Z90.49 Acquired absence of other specified parts of digestive tract
CPT/HCPCS: 99284; 73630; 80053; 85025; 87070; 87147; 87205

== ENCOUNTER → 2024-12-29 08:55 | Outpatient (REF) | payer MEDICARE, OTHER, SELFPAY | LOC: WOUND 08:55 | PROVIDERS: ATTENDING PHYSICIAN Surgery; FAMILY PHYSICIAN Family Medicine | DX: L97.519 Non-pressure chronic ulcer of other part of right foot with unspecified severity (principal); N18.31 Chronic kidney disease, stage 3a; E11.22 Type 2 diabetes mellitus with diabetic chronic kidney disease; I50.20 Unspecified systolic (congestive) heart failure; I10 Essential (primary) hypertension; I13.0 Hypertensive heart and chronic kidney disease with heart failure and stage 1 through stage 4 chronic kidney disease, or unspecified chronic kidney disease | CPT/HCPCS: 99213 ==

== ENCOUNTER → 2025-01-05 11:22 | Outpatient (REF) | payer MEDICARE, OTHER, SELFPAY | LOC: WOUND 11:22 | PROVIDERS: ATTENDING PHYSICIAN Surgery; FAMILY PHYSICIAN Family Medicine | DX: L97.519 Non-pressure chronic ulcer of other part of right foot with unspecified severity (principal); N18.31 Chronic kidney disease, stage 3a; E11.22 Type 2 diabetes mellitus with diabetic chronic kidney disease; I50.20 Unspecified systolic (congestive) heart failure; I13.0 Hypertensive heart and chronic kidney disease with heart failure and stage 1 through stage 4 chronic kidney disease, or unspecified chronic kidney disease | CPT/HCPCS: 99213 ==

== ENCOUNTER → 2025-01-12 10:42 | Outpatient (REF) | payer MEDICARE, OTHER, SELFPAY | LOC: WOUND 10:42 | PROVIDERS: ATTENDING PHYSICIAN Surgery; FAMILY PHYSICIAN Family Medicine | DX: L97.519 Non-pressure chronic ulcer of other part of right foot with unspecified severity (principal); N18.31 Chronic kidney disease, stage 3a; E11.22 Type 2 diabetes mellitus with diabetic chronic kidney disease; I50.20 Unspecified systolic (congestive) heart failure; I13.0 Hypertensive heart and chronic kidney disease with heart failure and stage 1 through stage 4 chronic kidney disease, or unspecified chronic kidney disease | CPT/HCPCS: 99213 ==

== ENCOUNTER → 2025-01-15 14:34 | Outpatient (REF) | payer MEDICARE, OTHER, SELFPAY | LOC: WDC 14:34 | PROVIDERS: ATTENDING PHYSICIAN Family Medicine | DX: Z12.31 Encounter for screening mammogram for malignant neoplasm of breast (principal) | CPT/HCPCS: 77063; 77067 ==

== ENCOUNTER 2025-01-17 13:04 | Outpatient (RCR) | payer MEDICARE, OTHER, SELFPAY ==
[2025-01-03 11:49] VITALS: BP 109/76
[2025-01-03 14:02] LABS: % Basophils 0.5 % (0-2); % Eosinophils 0.8 % (0-6); % Immature Granulocytes 0.5 % (0-0.5); % Monocytes 9.9 % (1.7-9.3); % Neutrophils 59.3 % (42.2-75.2); Absolute Eosinophils 0.1 10^3/uL (0-0.7); Absolute Lymphocytes 1.8 10^3/uL (1.2-3.4); Absolute Monocytes 0.6 10^3/uL (0.1-0.6); Absolute Neutrophils 3.6 10^3/uL (1.4-6.5); Hematocrit 29.8 % (37.0-47.0); Hemoglobin 9.7 g/dL (12.0-16.0); Mean Corp Hgb Conc. 32.6 g/dL (33.0-37.0); Mean Platelet Volume 10.3 fL (7.4-10.4); Nucleated Red Blood Cells % 0 %; Platelet Count 233 10^3/uL (130-400); Red Blood Cell Count 3.35 10^6/uL (4.20-5.40); Red Cell Dist. Width 14.7 % (11.5-14.5); White Blood Cell Count 6.1 10^3/uL (4.8-10.8)
[2025-01-03 15:09] LABS: Ferritin 87.2 ng/ml (11.1-264.0); Iron 51 ug/dl (37-170); Percent Saturation 21 % (20-50); Total Iron Binding Capacity 240 ug/dl (265-497)
[2025-01-17 13:00] VITALS: BP 132/72
[2025-01-17 13:37] LABS: % Basophils 0.3 % (0-2); % Eosinophils 1.5 % (0-6); % Immature Granulocytes 0.2 % (0-0.5); % Monocytes 7.9 % (1.7-9.3); % Neutrophils 62.1 % (42.2-75.2); Absolute Eosinophils 0.1 10^3/uL (0-0.7); Absolute Lymphocytes 1.7 10^3/uL (1.2-3.4); Absolute Monocytes 0.5 10^3/uL (0.1-0.6); Absolute Neutrophils 3.7 10^3/uL (1.4-6.5); Hemoglobin 8.9 g/dL (12.0-16.0); Mean Corp Hgb Conc. 31.8 g/dL (33.0-37.0); Mean Corpuscular Hgb 28.3 pg (27.0-31.0); Mean Corpuscular Volume 89.2 fL (81.0-99.0); Mean Platelet Volume 9.4 fL (7.4-10.4); Platelet Count 239 10^3/uL (130-400); Red Blood Cell Count 3.14 10^6/uL (4.20-5.40); Red Cell Dist. Width 14.5 % (11.5-14.5); White Blood Cell Count 5.9 10^3/uL (4.8-10.8)
[2025-01-17 14:33] LABS: Iron 31 ug/dl (37-170)
[2025-01-17 14:34] LABS: Albumin 3.5 g/dl (3.5-5.0); Blood Urea Nitrogen 16 mg/dl (7-17); Calcium 8.6 mg/dl (8.4-10.2); Carbon Dioxide 23 mmol/L (22-30); Chloride 110 mmol/L (98-107); Glucose 156 mg/dl (70-99); Phosphorus 4.8 mg/dl (2.5-4.5); Potassium 4.5 mmol/L (3.5-5.1); Sodium 138 mmol/L (135-145)
[2025-01-17 14:42] LABS: Percent Saturation 12 % (20-50); Total Iron Binding Capacity 242 ug/dl (265-497)
[2025-01-17 15:14] LABS: Ferritin 29.6 ng/ml (11.1-264.0)
== END 2025-01-18 12:33 | disposition home or self-care (01) ==
LOC: OID 13:04
PROVIDERS: Specialist; ATTENDING PHYSICIAN Internal Medicine Hematology & Oncology; FAMILY PHYSICIAN Family Medicine
DX: E83.110 Hereditary hemochromatosis (principal); N18.30 Chronic kidney disease, stage 3 unspecified; D63.1 Anemia in chronic kidney disease; Z98.84 Bariatric surgery status
CPT/HCPCS: 36591; 80069; 82728; 83540; 83550; 85025; 96523

== ENCOUNTER → 2025-01-26 09:29 | Outpatient (REF) | payer MEDICARE, OTHER, SELFPAY | LOC: WOUND 09:29 | PROVIDERS: ATTENDING PHYSICIAN Surgery; FAMILY PHYSICIAN Family Medicine | DX: L97.519 Non-pressure chronic ulcer of other part of right foot with unspecified severity (principal); N18.31 Chronic kidney disease, stage 3a; E11.22 Type 2 diabetes mellitus with diabetic chronic kidney disease; I50.20 Unspecified systolic (congestive) heart failure; I13.0 Hypertensive heart and chronic kidney disease with heart failure and stage 1 through stage 4 chronic kidney disease, or unspecified chronic kidney disease | CPT/HCPCS: 99213 ==

== ENCOUNTER → 2025-01-29 08:53 | Outpatient (REF) | payer MEDICARE, OTHER, SELFPAY | LOC: RAD 08:53 | PROVIDERS: ATTENDING PHYSICIAN Internal Medicine Gastroenterology; FAMILY PHYSICIAN Family Medicine | DX: E83.110 Hereditary hemochromatosis (principal) | CPT/HCPCS: 76700 ==

== ENCOUNTER 2025-02-14 11:21 | Outpatient (RCR) | payer MEDICARE, OTHER, SELFPAY ==
[2025-01-31 09:50] VITALS: BP 94/67
[2025-01-31 10:10] LABS: % Basophils 0.4 % (0-2); % Eosinophils 1.2 % (0-6); % Immature Granulocytes 0.1 % (0-0.5); % Lymphocytes 16.6 % (20.5-51.1); % Monocytes 8.4 % (1.7-9.3); % Neutrophils 73.3 % (42.2-75.2); Absolute Eosinophils 0.1 10^3/uL (0-0.7); Absolute Lymphocytes 1.3 10^3/uL (1.2-3.4); Absolute Monocytes 0.6 10^3/uL (0.1-0.6); Absolute Neutrophils 5.5 10^3/uL (1.4-6.5); Hematocrit 30.3 % (37.0-47.0); Hemoglobin 9.6 g/dL (12.0-16.0); Mean Corp Hgb Conc. 31.7 g/dL (33.0-37.0); Mean Corpuscular Hgb 27.7 pg (27.0-31.0); Mean Corpuscular Volume 87.6 fL (81.0-99.0); Mean Platelet Volume 9.5 fL (7.4-10.4); Platelet Count 238 10^3/uL (130-400); Red Blood Cell Count 3.46 10^6/uL (4.20-5.40); Red Cell Dist. Width 13.9 % (11.5-14.5); White Blood Cell Count 7.5 10^3/uL (4.8-10.8)
[2025-01-31 11:15] LABS: Iron 51 ug/dl (37-170)
[2025-01-31 11:25] LABS: Percent Saturation 22 % (20-50); Total Iron Binding Capacity 230 ug/dl (265-497)
[2025-01-31 11:45] LABS: Ferritin 18.5 ng/ml (11.1-264.0)
[2025-02-14 11:25] VITALS: BP 105/69
[2025-02-14 11:50] LABS: % Basophils 0.1 % (0-2); % Immature Granulocytes 0.2 % (0-0.5); % Lymphocytes 19.4 % (20.5-51.1); % Monocytes 9.2 % (1.7-9.3); % Neutrophils 70.1 % (42.2-75.2); Absolute Eosinophils 0.1 10^3/uL (0-0.7); Absolute Lymphocytes 1.8 10^3/uL (1.2-3.4); Absolute Monocytes 0.8 10^3/uL (0.1-0.6); Absolute Neutrophils 6.4 10^3/uL (1.4-6.5); Hemoglobin 9.6 g/dL (12.0-16.0); Mean Corpuscular Volume 87.5 fL (81.0-99.0); Mean Platelet Volume 9.8 fL (7.4-10.4); Platelet Count 252 10^3/uL (130-400); Red Blood Cell Count 3.43 10^6/uL (4.20-5.40); Red Cell Dist. Width 14.3 % (11.5-14.5); White Blood Cell Count 9.1 10^3/uL (4.8-10.8)
[2025-02-14 12:52] LABS: Iron 48 ug/dl (37-170)
[2025-02-14 13:01] LABS: Percent Saturation 19 % (20-50); Total Iron Binding Capacity 241 ug/dl (265-497)
[2025-02-14 13:27] LABS: Ferritin 23.2 ng/ml (11.1-264.0)
== END 2025-02-15 09:30 | disposition home or self-care (01) ==
LOC: OID 11:21
PROVIDERS: ATTENDING PHYSICIAN Internal Medicine Hematology & Oncology; FAMILY PHYSICIAN Family Medicine
DX: E83.110 Hereditary hemochromatosis (principal); N18.30 Chronic kidney disease, stage 3 unspecified; D63.1 Anemia in chronic kidney disease; Z98.84 Bariatric surgery status
CPT/HCPCS: 82728; 83540; 83550; 85025; 96523

== ENCOUNTER 2025-02-28 11:24 | Outpatient (RCR) | payer MEDICARE, OTHER, SELFPAY ==
[2025-02-28 11:30] VITALS: BP 122/83
[2025-02-28 11:47] LABS: Hematocrit 31.5 % (37.0-47.0); Hemoglobin 10.1 g/dL (12.0-16.0); Mean Corp Hgb Conc. 32.1 g/dL (33.0-37.0); Mean Corpuscular Volume 87.0 fL (81.0-99.0); Platelet Count 250 10^3/uL (130-400); Red Cell Dist. Width 14.3 % (11.5-14.5)
[2025-02-28 12:20] LABS: Iron 54 ug/dl (37-170)
[2025-02-28 12:28] LABS: Total Iron Binding Capacity 243 ug/dl (265-497)
[2025-02-28 12:55] LABS: Ferritin 20.5 ng/ml (11.1-264.0)
== END 2025-03-29 23:59 | disposition home or self-care (01) ==
LOC: OID 11:24
PROVIDERS: ATTENDING PHYSICIAN Internal Medicine Hematology & Oncology; FAMILY PHYSICIAN Family Medicine
DX: E83.110 Hereditary hemochromatosis (principal); N18.30 Chronic kidney disease, stage 3 unspecified; D63.1 Anemia in chronic kidney disease; Z98.84 Bariatric surgery status
CPT/HCPCS: 82728; 83540; 83550; 85025; 96523

== ENCOUNTER 2025-03-12 23:08 | Inpatient (IN) | payer MEDICARE, OTHER, SELFPAY ==
[2025-03-12 17:57] VITALS: BP 144/84
[2025-03-12 18:33] LABS: Venous Blood Gas B.E. -1.5 mmol/L (-4 to +4); Venous Blood Gas O2 Sat % 96.2 %
[2025-03-12 18:34] LABS: Hematocrit 31.8 % (37.0-47.0); Hemoglobin 10.3 g/dL (12.0-16.0); Mean Corp Hgb Conc. 32.4 g/dL (33.0-37.0); Mean Corpuscular Volume 86.9 fL (81.0-99.0); Nucleated Red Blood Cells % 0 %; Platelet Count 210 10^3/uL (130-400); Red Cell Dist. Width 14.7 % (11.5-14.5); Venous Blood Gas O2 Therapy RA
[2025-03-12 19:11] LABS: ALT (SGPT) 25 U/L (0-35); AST (SGOT) 32 U/L (14-36); Albumin 3.8 g/dl (3.5-5.0); Alkaline Phosphatase 122 U/L (38-126); Blood Urea Nitrogen 13 mg/dl (7-17); Calcium 8.6 mg/dl (8.4-10.2); Carbon Dioxide 24 mmol/L (22-30); Chloride 108 mmol/L (98-107); Glucose 250 mg/dl (70-99); Potassium 3.7 mmol/L (3.5-5.1); Sodium 139 mmol/L (135-145); Total Protein 6.6 g/dl (6.3-8.2); eGFR 52.80
[2025-03-12 19:25] LABS: Ammonia 10 umol/L (9-30)
--- NOTE | 2025-03-12 19:46 | ED.GENMED ---
History of Present Illness
General
Chief Complaint: Change in Mental Status
Source: patient and spouse
Exam Limitations: none
Time Seen by Provider: 03/12/25 19:45
History of Present Illness
History of Present Illness:
59yoF with a history of coronary artery disease, CHF, type 2 diabetes, COPD, JAMEEL, CKD, hypothyroidism, hemochromatosis, and fibromyalgia presenting with her for evaluation of altered mental status. Patient has been 'sick' the past few days
with a headache and nausea. She also reports dizziness and gait imbalance. states she has been very confused and talking about things that didn't happen. She has been talking to her parents who are both and she is experiencing
memory loss. She reports seeing objects/people in her peripheral vision that are not there. states this is very unusual for her. She denies any illicit drug use or alcohol use. No recent medication changes.
Past History
Past History
ED Past Medical History: Arrthythmia (Tachycardia), Asthma, CAD, CHF, COPD, Fibromyalgia, GERD, HTN, Hypothyroidism, Psychiatric (Anxiety, Depression), Other (Migraines, Neuropathy, Arms and leg numbness, Restless leg syndrome, Sleep apnea,
Ideopathic edema Diverticulitis, Hiatal hernia, IBS, Gastroparesis, PNA, Edema,) and Other (Endometriosis, Uterine fibroid, PCOS, Eczema, Macular degeneration, Iron Def anemia, Pancreatic enzyme insufficiency, Hemochromotosis, back pain, Liver
biopsy)
ED Past Surgical History: Cholecystectomy, Gynecological (Ovarian cyst surgery X 3), Orthopedic (Bilateral knee surgery, Right finger surgery, ), Tonsilectomy (and adenoids) and Other (Laparoscopies, Duodenal switch , Cataracts, Hernia repair,
Uvelectomy)
Social History
Tobacco: Non-smoker
Alcohol: None
Drug: None
Personal:
Living: with family
Family History
Family History: Diabetes
Phy Exam
General Physical Exam
General Presentation: well appearing and no apparent distress
General Skin: warm and dry
General Habitus: normal
General Mental: alert
ENT Exam
ENT Exam: normocephalic
Eye Exam
Eye Exam: PERRL, EOMI and conjunctiva normal
Cardiovascular Exam
Cardiovascular Exam: regular rate/rhythm
Pulmonary Exam
Pulmonary Exam: lungs clear, no respiratory distress, no rales, no crackles and no rhonchi
Neurological Exam
Neurological Exam: alert and other (Oriented to person, place, and time. CN 2-12 grossly intact. Negative drift x4. Normal finger to nose and heel to smiley bilaterally. No gait ataxia noted. )
Kevin Coma Scale
Eye Opening: Spontaneous
Verbal Response: Oriented
Motor Response: Obeys Commands
GCS Total Score: 15
Skin Exam
Skin Exam: normal color and warm/dry
Psychiatric Exam
Psychiatric Exam: normal mood/affect
Course
Orders/Labs/Results
Orders:
Orders
03/12/25 18:02
Electrocardiogram (*1) Urgent
Reason for Study: Other
Other Reason for Exam: mental status change
CT Head W/o Iv Contrast Urgent
Comment:
Reason For Exam: mental status change
03/12/25 18:03
EKG- Treatment ONCE
03/12/25 18:19
Ammonia Urgent
Complete Blood Count/With Diff Urgent
Comprehensive Metabolic Panel Urgent
Lactic Acid Urgent
TSH Urgent
Comment: ADD ON
Venous Blood Gas Urgent
%Oxygen/Room Air: RA
03/12/25 20:01
Add On- LAB Urgent
Tests Added?: TSH
Cardiac Monitoring- Treatment ONCE
Urinalysis Reflex To Culture Urgent
Date Specimen was Collected: 03/12/25
Time Specimen was Collected: 20:26
Famotidine [Pepcid] 20 mg PO NOW STA
03/12/25 20:19
Aspirin Chewable [Low Strength Aspirin] 324 mg PO NOW STA
03/12/25 20:25
Add On- LAB Urgent
Tests Added?: Troponin
03/12/25 20:59
Troponin I Urgent
Comment: ADD ON
03/12/25 22:53
Admit/Transfer Patient As Directed
Co-Sign Provider:
Level of Care: Inpatient admission
Assign to:: Telemetry
Physician / Group: Hola
Diagnosis: CVA
Reason for Telemetry: CVA/TIA
Date to Stop Telemetry: 03/15/25
Time to Stop Telemetry: 11:00
Reason for Hospitalization: CVA
Expected length of stay greater than two midnights?: Yes
ELOS- Estimated Length of Stay in days: 3
I certify the patient meets the requirements for IP care: Yes
PRN Pain Medication Management As Directed
May give lesser potent ordered pain med per pt: Yes
preference::
Protocol:: Medication orders for pain may be administered in a
manner that supports deferring to patient preference
when the pt is:
- Requesting an ordered lesser potent pain medication.
Least to most potent pain medications are defined
as: acetaminophen < NSAID < tramadol < opioids
(morphine, oxycodone, hydromorphone).
- Requesting a lesser dose of the same medication IF
ORDERED.
- Requesting a less intrusive route of administration
if both routes are prescribed by the provider (PO <
IV).
03/12/25 22:56
Code Status As Directed
Resuscitation Status: Full Code
03/12/25 23:36
Metoclopramide [Reglan] 10 mg IV Q6HPRN PRN
03/15/25 11:00
DC Protocol for Telemetry ONCE
Abnormal Lab Results
03/12/25
18:19
RBC 3.66 L 10^6/uL
(4.20-5.40)
Hgb 10.3 L g/dL
(12.0-16.0)
Hct 31.8 L %
(37.0-47.0)
MCHC 32.4 L g/dL
(33.0-37.0)
RDW 14.7 H %
(11.5-14.5)
VBG pO2 147 H mmHg
(30-50)
Chloride 108 H mmol/L
(98-107)
Creatinine 1.2 H mg/dL
(0.6-1.0)
Glucose 250 H mg/dl
(70-99)
Lactic Acid 2.4 H mmol/L
(0.7-2.0)
03/12/25 18:19
03/12/25 18:19
Vital Signs
Initial and Last Documented VS:
Initial Vital Signs
Temp Pulse Resp BP Pulse Ox
98.1 F 97 20 144/84 99
03/12/25 17:57 03/12/25 17:57 03/12/25 17:57 03/12/25 17:57 03/12/25 17:57
Last Documented Vital Signs
Temp Pulse Resp BP Pulse Ox
98.1 F 94 16 125/83 99
03/12/25 17:57 03/12/25 22:30 03/12/25 22:30 03/12/25 22:00 03/12/25 22:30
MDM/Problems Addressed
Differential Diagnosis Includes:
59yoF here with a change in mental status x several days. C/o memory loss, visual hallucinations, GUSMAN, and dizziness. VSS. She is well-appearing no acute distress. No focal neuro deficits noted on exam. She is oriented to person, place, and time.
Differential diagnosis includes but is not limited to: migraine, CVA, thyroid dysfunction, alcohol use
Workup initiated in triage. Glucose is 250. Bicarb normal ruling out DKA. Creatinine at baseline. Ammonia and pCO2 within normal limits. CT head shows a hypodensity within the left occipital lobe which may represent infarction. Aspirin load
ordered and patient admitted for further management.
*Pulse Oximetry
SaO2: 99
Oxygen Mode of Delivery: Room air
Patient hypoxic: no (99%)
*EKG
Interpreted by ED Provider?: Yes
EKG Intrepretation Date: 03/12/25
Heart Rate: 96
Rate: normal
Rhythm: sinus
[place]: normal axis
Interval: normal interval
QRS Pattern: normal QRS
Ischemia: non-specific ST changes
*Critical Care Note
Total Time (30-74mins, 75-104mins- exclusive of procedures): Not Applicable
ED Attending Note
-
Portions of this chart may have been created with voice recognition software.� Occasional wrong word or��sound alike� substitutions may have occurred due to the inherent limitations of voice recognition software.
Discharge Plan
Departure
Patient Disposition: Admit
Date of Disposition: 03/12/25
Time of Disposition: 20:32
Presentation/result/management discussed w/ accepting MD/DO: Hospitalist
Discharge Problem:
Altered mental status, Abnormal head CT
Interventions
Interventions:
*Risk Screen - Suicide Last Done: 03/12/25 21:05
*General Assessment Last Done: 03/12/25 17:57
*Neglect/Abuse Screening Last Done: 03/12/25 21:05
*ED- Fall Risk Assessment Last Done: 03/12/25 20:24
*ED COVID-19 Vaccine History Last Done: 03/12/25 20:24
ED- Neurological Assessment Last Done: 03/12/25 21:05
ED Swallowing Screen Last Done: 03/12/25 21:05
[2025-03-12 20:19] VITALS: BP 132/80
[2025-03-12] MEDS: LOW STRENGTH ASPIRIN 324 MG PO (20:35)
[2025-03-12] MEDS: PEPCID 20 MG PO (20:35)
[2025-03-12 21:00] VITALS: BP 129/79
[2025-03-12 21:52] LABS: Troponin I < 0.012 ng/ml
[2025-03-12 22:00] VITALS: BP 125/83
--- NOTE | 2025-03-12 23:01 | HPS.HSE ---
Family Physician
-
Family Physician: Roxy Hussein
Chief Complaint
-
Confusion, Nausea
History of Present Illness
Patient is a 59y F with PMH significant for DM-II, CHF, anemia and hemochromatosis who presents to ED for evaluation of headache, nausea and confusion. History obtained from patient and ED staff / record. Patient reports development of headache
and 'Waves of nausea' over the past 4 days or so. Episodes have been increasing in frequency and severity. She has not had any actual emesis. Patient describes L sided headache accompanied by severe waves of nausea and burning / numbness in both
arms and across her chest. No focal weakness. She denies any prior history of similar symptoms. She denies any new medications.
and patient also note that she has been confused as well during the past 2-4 days. Patient states that she frequently has no recall of what she did during the day.
She reports some blurry vision. reports that patient has been 'seeing things' in her peripheral vision.
Patient is followed by Hematology for hereditary hemochromatosis and anemia.
She received intermittent phlebotomy - most recent was about 3 weeks ago.
Medical History
Past Medical History
Past Medical History: Reports Other
Additional Past Medical History:
Hereditary Hemochromatosis
Anemia of CKD
CKD III
Obesity s/p Bariatric Surgery
PCOS / Endometriosis
DM-II
HFpEF
Peripheral Neuropathy
GERD
Restless Leg Syndrome
Chronic Pain Syndrome
Chronic Opioid Dependence
Past Surgical History: Reports Other
Additional Past Surgical History:
Oscar-en-Y Gastric Bypass (2020)
Cholecystectomy
UP3
Arthroscopies of the knees
Ex Lap for endometriosis
R ACW Port Placement
Social History
Tobacco: Non-smoker
Alcohol: None
Drug: None
Family History
Family History: Other (Mother: CVA Father: TIAs)
Allergies / Home Medications
Allergies reflects when Allergies were last updated in [email or web address].
Home Medications with original date entered in [email or web address]
Allergy/Medication List:
Allergies
Allergy/AdvReac Type Severity Reaction Status Date / Time
cat dander Allergy Shortness Verified 03/12/25 17:56
of
Breath/congestion
dog dander Allergy Shortness Verified 03/12/25 17:56
of
Breath/congestion
grass pollen Allergy Shortness Verified 03/12/25 17:56
of
Breath/ASTHMA
ATTACK
house dust Allergy Shortness Verified 03/12/25 17:56
of
Breath/ASTHMA
EXACERBATION
house dust mite Allergy Shortness Verified 03/12/25 17:56
of
Breath/ASTHMA
EXACERBATION
shellfish derived Allergy Nausea / Verified 03/12/25 17:56
Vomiting
Sulfa (Sulfonamide Allergy Nausea / Verified 03/12/25 17:56
Antibiotics) Vomiting
tree and shrub pollen Allergy HARDWOOD-SO Verified 03/12/25 17:56
B
Home Medications
levothyroxine 50 mcg tablet 50 mcg PO DAILY Thyroid 10/05/19
omeprazole 40 mg capsule,delayed release 40 mg PO DAILY Gastrointestinal Issue 02/27/21
multivitamin 1 tab PO DAILY Supplement 04/30/23
zolpidem 10 mg tablet 10 mg PO HS 04/30/23
famotidine 40 mg tablet 40 mg PO HS Gastrointestinal Issue 05/05/23
bupropion HCl 150 mg 24 hr tablet, extended release 150 mg PO DAILY Mental Health 10/20/23
cyclobenzaprine 10 mg tablet 20 mg PO HS 10/20/23
furosemide 40 mg tablet 40 mg PO DAILYPRN PRN 2 lb weight gain 10/20/23
ropinirole 4 mg tablet 4 mg PO HSPRN PRN restless leg 10/20/23
diclofenac sodium 1 % topical gel 1 ea topical DAILY PRN lower back & B/L calves 01/30/24
potassium chloride 20 mEq oral packet 20 meq PO TID 11/02/24
rgjzhe-xooeobbr-iznvpqy 36,000-114,000-180,000 unit capsule,delay rel (Creon) 2 cap PO MEALS 01/03/25
morphine 15 mg immediate release tablet 15 mg PO BIDPRN PRN severe pain 01/17/25
bismuth subsalicylate 262 mg/15 mL oral suspension (Pepto-Bismol) 524 mg PO TIDPRN PRN stomach issues 03/12/25
hydromorphone 2 mg tablet 2 mg PO BIDPRN PRN severe pain 03/12/25
lidocaine-prilocaine 2.5 %-2.5 % topical cream 1 applic topical DAILYPRN PRN port & B/L legs 03/12/25
mrxrke-brzyoonx-fddcwhy 36,000-114,000-180,000 unit capsule,delay rel (Creon) 1 cap PO .AFTERNOON PRN snacks 03/12/25
tirzepatide 5 mg/0.5 mL subcutaneous pen injector (Mounjaro) 5 mg SC TH 03/12/25
Review of Systems
-
History Source: Patient
A 12 point ROS was completed and negative except as noted: Yes
Constitutional: Reports Fatigue; Denies Fever or Chills
EENT: Reports Other (Blurry vision); Denies Sore Throat
Respiratory: Denies Cough or Trouble Breathing
Cardiac: Denies Chest Pain or Palpitations
Abdomen/GI: Reports Nausea; Denies Abdominal Pain, Vomiting, Diarrhea, Constipated, Bloody Stools, Black Stools or Anorexia
: Denies Dysuria, Frequency or Flank Pain
Musculoskeletal: Reports Edema; Denies Joint Pain
Neurological: Reports Headache and Numbness; Denies Dizzy or Weakness
Psych: Reports Anxiety
Physical Exam
Vital Signs
Vital Signs
Temp Pulse Resp BP Pulse Ox
98.1 F 94 16 125/83 99
03/12/25 17:57 03/12/25 22:30 03/12/25 22:30 03/12/25 22:00 03/12/25 22:30
Physical Exam
General: Other (59y F in mild distress due to nausea)
HEENT: Moist mucous membranes and PERRLA
Respiratory: Clear; No Wheezes, Rales or Rhonchi
Cardiac: S1/S2 and Regular Rhythm; No Murmur
GI: Soft, Non Tender, Non Distended and Normal Bowel Sounds
Musculoskeletal: No Clubbing, No Cyanosis and Other (Trace b/l LE edema.)
Neuro: AO x 3 and Nonfocal/grossly intact
Laboratory Results
-
03/12/25 18:19
03/12/25 18:19
Laboratory Results
Lactic Acid 2.4 mmol/L (0.7-2.0) H 03/12/25 18:19
Total Bilirubin 0.4 mg/dl (0.2-1.3) 03/12/25 18:19
AST 32 U/L (14-36) 03/12/25 18:19
ALT 25 U/L (0-35) 03/12/25 18:19
Alkaline Phosphatase 122 U/L (38-126) 03/12/25 18:19
Troponin I < 0.012 ng/ml 03/12/25 20:59
Impression/Plan
-
A/P: Patient is a 59y F with PMH significant for CHF, DM-II, CKD and hemochromatosis who presents to ED complaining of headache, nausea and confusion.
CVA
- Admit to monitored bed for further evaluation and treatment.
- CT scan done in the ED shows hypodense lesion in the L occipital / L temporal areas concerning for CVA.
- Follow neurologic examination for changes.
- No current focal deficits and described / presenting symptoms do not seem to correlate with acute CVA (excepting maybe nausea).
- MRI in AM.
- Neurology evaluation for additional recommendations.
- PT / OT / Speech evaluations.
- Check lipid panel, A1C, etc.
Possible Migraines
- Intermittent symptoms of headache, nausea and numbness of both arms / chest.
- ? migraine. Patient notes prior history of headaches - but none in several years until recently.
- Migraine cocktail PRN and follow for any improvement in symptoms.
- Neuro evaluation as noted above.
Anemia of CKD
Hereditary hemochromatosis
- Stable. Hgb is at / near known baseline.
- HCT is below 50% threshold for hemochromatosis.
- Check iron studies.
- Follow for changes.
DM-II
- Stable. Hold outpatient medications including Mounjaro.
- Follow glucose and cover with SSI as needed.
- Update A1C.
CKD III
- Stable. Renal function is at / near known baseline.
- Follow for changes.
Chronic HFpEF
- Mild edema noted on exam - otherwise unremarkable.
- Not on chronic diuretic regimen besides PRN Lasix.
- Follow I/Os, daily weights, etc.
- Last Echo was 1 year ago - will update.
s/p Bariatric Surgery
Hypokalemia
GERD
- Stable. Continue potassium supplementation.
- Check Mg level, B12, iron studies, etc.
- Follow labs / lytes and replace as needed.
Chronic Pain Syndrome
Chronic Opioid Dependence
- Reconciled med list including Dilaudid and Morphine.
- PDMP with no recent Dilaudid Rx.
- Continue morphine PRN at decreased dose.
- Certainly narcotic and other sedating meds are not improving confusion, etc.
Hypothyroidism
- Continue current T4 supplement.
- Updated TFTs are pending.
Pancreatic Insufficiency
- Stable. Continue Creon with meals.
DVT Prophylaxis: SCDs
Code Status: Full
[2025-03-12 23:15] VITALS: BP 121/79
[2025-03-12 23:49] LABS: TSH 0.83 uIU/ml (0.47-4.68)
[2025-03-12] MEDS: REGLAN 10 MG IV (23:51)
[2025-03-13] VITALS (9 sets, daily range): BP systolic 110–167; BP diastolic 62–90; PULSE 90–96; O2SAT 99; BMI 24.0; BMI 23.9
[2025-03-13 00:35] LABS: Urine Character Clear (Clear)
[2025-03-13] MEDS: ZOFRAN 4 MG IV ×2 (00:43→13:16)
[2025-03-13 00:49] LABS: Urine Red Blood Cell 0-2 /HPF (0-2); Urine White Cell 26-30 /HPF (0-5)
--- NOTE | 2025-03-13 01:57 | PTCARENOTE ---
Rec'd patient from ED, stable vitals, c/o nausea, Zofran IV given as ordered. NIH- 1. AAOx3, very forgetful. POC reviewed with patient
[2025-03-13] MEDS: SYNTHROID 50 MCG PO (04:39)
[2025-03-13 04:54] LABS: Hematocrit 29.0 % (37.0-47.0); Hemoglobin 9.3 g/dL (12.0-16.0); Mean Corp Hgb Conc. 32.1 g/dL (33.0-37.0); Mean Corpuscular Volume 86.6 fL (81.0-99.0); Platelet Count 191 10^3/uL (130-400); Red Cell Dist. Width 14.6 % (11.5-14.5)
[2025-03-13 05:27] LABS: Blood Urea Nitrogen 14 mg/dl (7-17); Calcium 8.4 mg/dl (8.4-10.2); Carbon Dioxide 28 mmol/L (22-30); Chloride 110 mmol/L (98-107); Estimated Creatinine Clearance 50 ml/min; Glucose 110 mg/dl (70-99); HDL Cholesterol 62 mg/dl; Iron 57 ug/dl (37-170); LDL Cholesterol, Calculated 31 mg/dl; Magnesium 2.0 mg/dl (1.6-2.3); Potassium 3.7 mmol/L (3.5-5.1); Sodium 138 mmol/L (135-145); Very Low Density Lipoprotein 10 mg/dl (0-30); eGFR > 60.00
[2025-03-13 05:36] LABS: Total Iron Binding Capacity 251 ug/dl (265-497)
[2025-03-13 05:58] LABS: Ferritin 14.3 ng/ml (11.1-264.0)
[2025-03-13 06:12] LABS: Vitamin B12 999 pg/ml (239-931)
[2025-03-13 07:37] LABS: Glucose - Point of Care 105 mg/dl (70-99)
--- NOTE | 2025-03-13 07:46 | W.PN.HOSP.TC ---
Addendum entered and electronically signed by Manny Hall MD 03/14/25 14:33:
Presenting with headache confusion and nausea
CT brain demonstrating hypodensity in the left occipital lobe
Acute CVA, large 4.5 cm acute ischemic infarct in the posterior left temporal lobe, small 3.6 mm acute ischemic infarct in the left medial septal lobe, 5 mm chronic ischemic infarct in the right cerebellar hemisphere, small chronic transcortical
infarct of the posterior right parietal lobe
PT OT speech
Consult neurology
Check lipid A1c
21 days of dapt. followed by asa
2D echo, new HFrEF EF 25 to 30%, possible vegetation, consult cardiology for EVELYN
Holter monitor will be needed prior to discharge or with outpatient cardiology follow-up if unable to detect atrial fibrillation
Monitor on telemetry
HFrEF, EF 25-30%
Reports history of palpitations for the last couple weeks lasting for 5 minutes. Therefore cannot rule out tachycardia induced nonischemic cardiomyopathy versus ischemic cardiomyopathy requiring a ischemic workup
Euvolemic on exam, will need beta-blockers plus TC inhibitor/ARB/Entresto plus MRA plus SGLT2 inhibitor
Normocytic anemia, related to anemia of chronic kidney disease
Without evidence of acute active bleeding
Monitor hemoglobin
Transfuse less than 7
Diabetes type 2
Accu-Chek sliding scale goal blood glucose 1 4180
Carb controlled diet
Hypothyroidism
Continue levothyroxine
CPRS/chronic opioid dependence
Continue current dosing
Pancreatic insufficiency
Continue Creon with meals
Original Note:
Today's Communication/Plan
-
Pending further imaging and consults as above
c/w aspirin/plavix
Assessment / Plan
Assessment / Plan
59 yo female with a pmhx of NIDDM, CHF, anemia, hereditary hemochromatosis who presented to the ED for evaluation of headache, nausea, confusion worsening over the last week.
Head CT:
There is a hypodensity within the left occipital lobe which extends into the posterior left temporal lobe which may represent an infarction.
Brain MRI:
1. LARGE 4.5 cm ACUTE ISCHEMIC INFARCT in the POSTEROMEDIAL LEFT TEMPORAL LOBE.
2. Small 3.6 mm acute ischemic infarct in the medial left occipital lobe.
3. 5 mm chronic ischemic infarct in the right cerebellar hemisphere.
4. Small chronic transcortical infarct in the posterior right parietal lobe.
5. Moderate white matter leukoaraiosis in the parietal lobes.
6. Moderate volume loss in the frontal lobes, parietal lobes, and temporal lobes.
Head/Neck CTA:
Focal hypodensity in the left occipital lobe probably subacute infarct. This would better be evaluated by MR examination. The patient is schedule today.
Mild atrophy.
No M1 nor M2 occlusion
Probable focal atelectasis/scarring in the right upper lobe. Pneumonia and a mass cannot be excluded. Progressed. PET imaging recommended
#Acute CVA
- neurologic exam unremarkable except for memory issues at this time
- CT Head/Brain MRI as above showing multiple areas of acute infarct
- started on aspirin/Plavix x21d course
- c/w statin with LDL goal <70 (currently at goal - 31)
- goal of normotension/normoglycemia
- c/w neuro checks
- Echo per stroke workup demonstrating worsening EF to 25-30% from prior with small echodensity on aortic valve -- consider EVELYN
- Neurology following
- Cardiology to see for acutely worsening EF
#Aortic Echodensity
- found on recent Echo as above, concern for possible Vegetation, especially given acute CVA with multiple infarcted areas
- will need EVELYN to rule out
- patient does, on further questioning endorse several months of chills and intermittent night sweats, however is afebrile and without leukocytosis during this admission.
- There is also poor dentition and she has not yet been seen by dentist to address this
- follow cardiology recs for EVELYN
#?Migraines vs. metabolic 2* acute CVA
- Intermittent symptoms of headache, nausea w/ paresthesias of the Upper and Lower extremities
- c/w Migraine cocktail PRN, though sx most likely related to multiple areas of acute brain infarct
#Anemia of CKD
#Hereditary hemochromatosis
- patient has R sided tunnel catheter for serial therapeutic phlebotomy
- Stable, well controlled as OP
- Hgb 9.3/Hct 29%
- Ferritin 14.3, TIBC 251, sat 22%, Total Iron 57
#NIDDM
- well controlled, A1C 5.5%
- Hold outpatient medications including Mounjaro.
- POC glucose checks, LDISS
#CKDIII
- Renal function is at / near known baseline
- trend CMP
#Chronic HFpEF
- Not in acute exacerbation
- Follow I/Os, daily weights
- hold home prn lasix for now, if signs of volume overload or >2lb weight gain then will add back
- Last Echo was 2023 - Echo from 03/13/2025 results below:
Severely reduced left ventricular systolic function LVEF 25 to 30%
Aortic sclerosis with mobile echodensity on the ventricular side of the valve, vegetation cannot be excluded
Trace AR, trace MR, mild TR
#s/p Bariatric Surgery
#Hypokalemia
#GERD
- c/w potassium supplementation.
- B12 999
- c/w antacids
#Chronic Pain Syndrome
#Chronic Opioid Dependence
- Reconciled med list including Dilaudid and Morphine.
- PDMP with no recent Dilaudid Rx.
- Continue morphine PRN at decreased dose.
#Hypothyroidism
- stable, controlled, TSH 0.83
- c/w Levothyroxine
#Pancreatic Insufficiency
- Stable. C/w Creon AC
DVT Ppx: SCDs
Code Status: Full Code
Anticipated Discharge: 24 - 48 hours
Subjective/Interval History
-
Date of Service: March 13, 2025
She is having trouble with her memory, though she is lucid and without headache, nausea, or cardiac symptoms. She experiences intermittent pain in the L arm and BL LE, not associated with any other symptoms. No other acute complaints. No overnight
events.
Objective Data
-
Labs:
Laboratory Results
03/13/25
04:17
WBC 5.5
Hgb 9.3 L
Hct 29.0 L
Plt Count 191
Sodium 138
Potassium 3.7
Chloride 110 H
Carbon Dioxide 28
BUN 14
Creatinine 1.0
Glucose 110 H
Calcium 8.4
Vital Signs:
Vital Signs
Temp Pulse Resp BP Pulse Ox
98.6 F 78 16 110/62 98
03/13/25 03:21 03/13/25 03:21 03/13/25 03:21 03/13/25 03:21 03/13/25 03:21
I&O
03/12/25 03/13/25 03/14/25
06:59 06:59 06:59
Intake Total 480 / 480
Balance 480 / 480
Review of Systems
-
Unable to obtain full review of systems at this time due to: Acuity
History Source: Patient
All other systems: Reviewed and negative
Constitutional: Reports No Symptoms
EENT: Reports No Symptoms Reported
Respiratory: Reports No Symptoms
Cardiac: Reports No Symptoms
Abdomen/GI: Reports No Symptoms
Breast: Reports N/A
Genitourinary: Reports No Symptoms
Musculoskeletal: Reports Myalgias
Skin: Reports No Symptoms
Neuro: Reports No Symptoms
Endocrine: Reports No Symptoms
Hematologic / Lymphatic: Reports No Symptoms
Physical Exam
-
General: Well Developed, Well Nourished, No Apparent Distress and Comfortable
HEENT: Normocephalic, Atraumatic, Moist Mucous Membranes, Anicteric, [place] Conjunctivae, No Ptosis, PERRLA, Nose Appears Normal and Ears Appear Normal; Negative Good Dentition (poor dentition)
Respiratory: Clear to Auscultation; Negative Wheezes, Rales or Rhonchi
Cardiac: Regular Rhythm and S1/S2
Breast: Deferred by me
GI: Soft, Nontender, Nondistended and Normal Bowel Sounds
Rectal: Deferred by Provider
Genito-urinary: Deferred by me
Musculoskeletal: No Clubbing, No Cyanosis and No Edema
Skin: Warm, Dry and IV Access / Catheter Site
Neuro: AO x 3, No Motor Deficits, Nonfocal/Grossly Intact and Central Nerve's Intact; Negative Tremors, No Sensory Deficits, Slurred Speech or Facial Droop
[2025-03-13] MEDS: NOVOLOG FLEXPEN-LOW RESISTANCE SC ×3 (07:57→17:10)
[2025-03-13] MEDS: KLOR-CON 20 MEQ PO ×2 (07:57→20:51)
[2025-03-13] MEDS: WELLBUTRIN XL (24 hour extended release) 150 MG PO (07:57)
[2025-03-13] MEDS: LOW STRENGTH ASPIRIN 81 MG PO (07:58)
[2025-03-13] MEDS: PROTONIX 40 MG PO (07:58)
[2025-03-13] MEDS: ZENPEP DELAYED RELEASE CAPSULE 6 CAPSULE PO ×3 (07:58→17:43)
--- NOTE | 2025-03-13 09:13 | CON.NEURO ---
Addendum entered and electronically signed by Tiago Hui MD 03/13/25 17:43:
Studies reviewed.
I have personally examined the patient. I reviewed and agree with the [employer] OPERATOR's Note.
My addenda:
Awake, alert, interactive. No acute distress.
Speech intact.
Follows 2-step requests w/o difficulty. No tremor.
Extra-ocular movements grossly intact.
Facial movements full and symmetric. Hearing intact to normal conversational volume.
Normal UE movements bilaterally.
Neck: full ROM.
Chest: no dyspnea
Heart: no JVD
Ext: (-) Clubbing, (-) Cyanosis, (-) Edema
IMPRESSIONS/RECOMMENDATIONS:
Abrupt onset of change in mental status, headache, and change in mood most likely due to acute left ischemic posterior circulation stroke
Despite patient's hemochromatosis, would provide aspirin and clopidogrel for 21 days then monotherapy with aspirin alone
No need for additional therapy to lower LDL
Would pursue EVELYN due to suggestion of low EF and possible vegetation, appreciate cardiology assistance
In 6 weeks check hypercoagulability testing
D/W patient
All questions answered.
Will continue to follow as outpatient.
Original Note:
Documented by User: Mita Rubalcava NP 03/13/25 14:50
Neuro Assessment/Plan
Assessment
Patient is a 59y F with H significant for DM-II, CHF, anemia and hemochromatosis who presented to [facility] on 03/12/2025 for evaluation of headache, nausea and confusion.
CT head: There is a hypodensity within the left occipital lobe which extends into the posterior left temporal lobe which may represent an infarction. Consider MRI for further evaluation.
Head and neck CTA: Focal hypodensity in the left occipital lobe probably subacute infarct. This would better be evaluated by MR examination. The patient is schedule today. Mild atrophy. No M1 nor M2 occlusion
Brain MRI:
1. LARGE 4.5 cm ACUTE ISCHEMIC INFARCT in the POSTEROMEDIAL LEFT TEMPORAL LOBE.
2. Small 3.6 mm acute ischemic infarct in the medial left occipital lobe.
3. 5 mm chronic ischemic infarct in the right cerebellar hemisphere.
4. Small chronic transcortical infarct in the posterior right parietal lobe.
5. Moderate white matter leukoaraiosis in the parietal lobes.
6. Moderate volume loss in the frontal lobes, parietal lobes, and temporal lobes.
TTE:
Severely reduced left ventricular systolic function.
LV ejection fraction is 25-30% .
Aortic sclerosis with more focal thickening of the right coronary cusp leaflet.
In the parasternal long axis there is some mobile echodensity along the
ventricular side of the valve which may just be related to aortic thickening
and sclerosis.. Vegetation cannot be excluded
Trace aortic regurgitation
Trace mitral regurgitation
Mild tricuspid regurgitation.
When compared with the previous study from 01/31/2024 there is been significant
reduction in the left ventricular function. Aortic sclerosis is again seen
however a small mobile echodensity is more easily seen on the associated with
the aortic valve is more easily seen on the current study
Plan
Impression: abrupt onset of headache, nausea and confusion x4 days secondary to acute ischemic CVA
-brain MRI reviewed
-head and neck CTA reviewed
-BP goal is normotension.
-continue aspirin 81mg daily, add clopidogrel 75 mg daily for 21 days followed by monotherapy with aspirin
-hemoglobin A1C pending, Goal is normoglycemia.
-goal LDL<70, current LDL 31
-echocardiogram reviewed with possible vegetation seen consider EVELYN, appreciate cardiology recommendations
-PT/OT/ST evaluations
-DVT prophylaxis
-continue neurochecks and NIHSS per unit guidelines
-education material to be provided
-coagulability workup outpatient
-follow up with neurology outpatient
All questions encouraged and answered, plan of care discussed with Dr. Hui, hospitalist, nurse and patient
Consultation
Order
Date of Consultation: 03/13/25
Requesting Provider: hospitalist
Reason for Consult: headache and nausea
Subjective/Objective
Subjective Data
Date of Service: March 13, 2025
Objective Data
Vital Signs
Temp Pulse Resp BP Pulse Ox
98.1 F 98 20 126/82 98
03/13/25 07:00 03/13/25 07:00 03/13/25 07:00 03/13/25 07:00 03/13/25 07:00
Lab Results
03/13/25 04:17
03/13/25 04:17
Sodium 138 mmol/L (135-145) 03/13/25 04:17
Potassium 3.7 mmol/L (3.5-5.1) 03/13/25 04:17
BUN 14 mg/dl (7-17) 03/13/25 04:17
Glucose 110 mg/dl (70-99) H 03/13/25 04:17
Calcium 8.4 mg/dl (8.4-10.2) 03/13/25 04:17
LDL Cholesterol, Calc 31 mg/dl 03/13/25 04:17
Vitamin B12 999 pg/ml (239-931) H 03/13/25 04:17
Patient Allergies
cat dander Allergy (Verified 03/12/25 17:56)
Shortness of Breath/congestion
dog dander Allergy (Verified 03/12/25 17:56)
Shortness of Breath/congestion
grass pollen Allergy (Verified 03/12/25 17:56)
Shortness of Breath/ASTHMA ATTACK
house dust Allergy (Verified 03/12/25 17:56)
Shortness of Breath/ASTHMA EXACERBATION
house dust mite Allergy (Verified 03/12/25 17:56)
Shortness of Breath/ASTHMA EXACERBATION
shellfish derived Allergy (Verified 03/12/25 17:56)
Nausea / Vomiting
Sulfa (Sulfonamide Antibiotics) Allergy (Verified 03/12/25 17:56)
Nausea / Vomiting
tree and shrub pollen Allergy (Verified 03/12/25 17:56)
HARDWOOD-SOB
CVA Assessment
Onset of Stroke Symptoms
Onset of symptoms known: No
Time pt last seen normal is known: No
NIH Stroke Score
Level of Consciousness: 0 - Alert
LOC Questions: 0-Answers both correctly
LOC Commands: 0-Performs both correctly
Best Horizontal Gaze: 0-Normal
Visual Bender: 0=Normal, no visual loss
Facial Palsy: 0=Normal, symmetrical
Motor - Right Arm: 0=No drift 10 seconds
Motor - Left Arm: 0=No drift 10 seconds
Motor - Right Le-No drift 5 seconds
Motor - Left Le-No drift 5 seconds
Limb Ataxia: 0-Absent
Sensation: 0-Normal
Best Language: 0-No aphasia
Dysarthria: 0-Normal
Extinction and Inattention: 0-No abnormality
NIH Total Score:: 0
Tenecteplase Contraindications
Inclusion and Exclusion criteria reviewed: Yes
Reasons for NON-Tx with Thrombolytics ABSOLUTE Exclusions: Time-out of window
IAT Contraindications: >6 hrs from onset/last seen normal and NIHSS < 6
Modified [place] Score (MRS)
-
Modified Cristina Scale (mRS): No significant disability. Able to carry out usual activities.
Score: 1
Review of Systems
-
History Source: Patient
Constitutional: No Symptoms
EENT: No Symptoms Reported
Respiratory: No Symptoms
Cardiac: No Symptoms
Abdomen/GI: Nausea
Genitourinary: No Symptoms
Musculoskeletal: No Symptoms
Skin: No Symptoms
Neuro: Dizzy and Headache
Endocrine: No Symptoms
Physical Exam
-
General: No Apparent Distress
HEENT: Normocephalic, Atraumatic and Anicteric
Neck: Full Range of Motion
Respiratory: No Dyspnea
Cardiac: No JVD
GI: Non-distended
Skin: Unremarkable
Extremities: No Clubbing, No Cyanosis and No Edema
Psych: Unremarkable
Extended Neurological Exam
Mood & Affect: Mood Unremarkable
Attention Span & Concentration: Awake, Alert, Interactive and No Difficulty with 2 Step Request
Memory: Unremarkable
Tremor: Hand Tremor Absent and Head Tremor Absent
Involuntary Movement: None
Speech: Quality Unremarkable, Quantity Unremarkable and Rate of Production Unremarkable
Cranial Nerve II: Left Eye: Visual Bender Intact
Cranial Nerve II: Right Eye: Visual Bender Intact
Cranial Nerves III, IV, : Extraocular Movement: Extraocular Movement Full in all Directions
Cranial Nerve VII: Facial Symmetry: Normal Facial Symmetry
Cranial Nerve VIII: Hearing: Unremarkable Hearing to Normal Conversational Volume
Cranial Nerves IX, X: Palate Movement: Palate Elevation Symmetric
Cranial Nerve XI: Shoulder Shrug: Unremarkable
Cranial Nerve XII: Tongue Protusion: Midline
Muscle Strength, Overall: Full Throughout
Pronator Drift: No Drift in Upper Extremities and No Drift in Lower Extremities
Coordination: Bygjye-khwj-hobmix Testing Unremarkable and Reaches for Objects without Difficulty
Gait & Station: Romberg Test Positive
Data Reviewed
-
CT-A: Report Reviewed and Image Reviewed
CT Head: Report Reviewed and Image Reviewed
MRI Head: Report Reviewed and Image Reviewed
Carotid Ultrasound: Ordered
Labs: Report Reviewed
Lipid Profile: Report Reviewed
HgbA1C: Pending
Reviewed with: Physician and Patient
Old Records: Summarized
Medications
-
Active Medications
Generic Name Dose Route Start Last Admin
Trade Name Freq PRN Reason Stop Dose Admin
Acetaminophen 650 mg 03/13/25 00:10
Acetaminophen 325 Mg Tablet PO 04/10/25 00:09
Q4HPRN PRN
Mild Pain / Temp > 101
Aspirin 81 mg 03/13/25 08:00 03/13/25 07:58
Aspirin 81 Mg Chewable Tablet PO 04/10/25 07:59 81 mg
DAILY ERICH Administration
Bupropion HCl 150 mg 03/13/25 08:00 03/13/25 07:57
Bupropion (24hr) Extended Release 150 Mg Tablet PO 04/10/25 07:59 150 mg
DAILY ERICH Administration
Clopidogrel Bisulfate 75 mg 03/13/25 09:00
Clopidogrel 75 Mg Tablet PO 04/10/25 08:59
DAILY ERICH
Dextrose 12.5 grams 03/13/25 00:10
Dextrose 50% (0.5 Grams/Ml) 50 Ml Syringe IV 04/10/25 00:09
[id number] PRN
hypoglycemia
Protocol
Famotidine 40 mg 03/13/25 22:00
Famotidine 40 Mg Tablet PO 04/10/25 21:59
HS ERICH
Glucagon 1 mg 03/13/25 00:10
Glucagon 1 Mg Vial IM 04/10/25 00:09
PRN PRN
hypoglycemia
Protocol
Heparin Sodium (Porcine) 500 unit 03/13/25 04:24 03/13/25 04:26
Heparin Flush Pf (100 Unit/Ml) 5 Ml Syringe IV 04/10/25 04:23 500 unit
PRN PRN Administration
PORT FLUSH
Insulin Aspart 0 units 03/13/25 07:30 03/13/25 07:57
Insulin Aspart Low Resistance 300 Units/3 Ml Pen.Injctr SC 04/10/25 07:29 Not Given
AC ERICH
Protocol
Ketorolac Tromethamine 10 mg 03/13/25 00:10
Ketorolac 15 Mg/Ml Injection IV 03/18/25 00:09
Q6HPRN PRN
Headache
Levothyroxine Sodium 50 mcg 03/13/25 06:00 03/13/25 04:39
Levothyroxine 50 Mcg Tablet PO 04/10/25 05:59 50 mcg
DAILY @ 0600 ERICH Administration
Metoclopramide HCl 10 mg 03/12/25 23:36 03/12/25 23:51
Metoclopramide 10 Mg/2 Ml Vial IV 04/09/25 23:35 10 mg
Q6HPRN PRN Administration
Headache / Nausea
Morphine Sulfate 15 mg 03/13/25 00:10
Morphine 15 Mg Immediate Release Tablet PO 03/27/25 00:09
BIDPRN PRN
severe pain
Ondansetron HCl 4 mg 03/13/25 00:10 03/13/25 00:43
Ondansetron 4 Mg/2 Ml Vial IV 04/10/25 00:09 4 mg
Q6HPRN PRN Administration
nausea and vomiting
Pancrelipase 6 capsule 03/13/25 08:00 03/13/25 07:58
Pancrelipase (Zenpep) Delayed Release Capsule PO 04/10/25 07:59 6 capsule
MEALS ERICH Administration
Pantoprazole Sodium 40 mg 03/13/25 08:00 03/13/25 07:58
Pantoprazole 40 Mg Delayed Release Tablet PO 04/10/25 07:59 40 mg
DAILY ERICH Administration
Potassium Chloride 20 meq 03/13/25 08:00 03/13/25 07:57
Potassium Chloride 20 Meq Powder Packet PO 04/10/25 07:59 20 meq
BID ERICH Administration
Ropinirole HCl 4 mg 03/13/25 00:10
Ropinirole 2 Mg Tablet PO
HSPRN PRN
restless leg
Sodium Chloride 0 flush 03/12/25 23:00
Sodium Chloride 0.9% (Flush) Syringe IV 04/09/25 22:59
PER PROTOCOL ERICH
Home Medications
�Medication �Instructions �Recorded
levothyroxine 50 mcg tablet 50 mcg PO DAILY Thyroid 10/05/19
omeprazole 40 mg capsule,delayed 40 mg PO DAILY Gastrointestinal 02/27/21
release Issue
multivitamin 1 tab PO DAILY Supplement 04/30/23
zolpidem 10 mg tablet 10 mg PO HS Sleep 04/30/23
famotidine 40 mg tablet 40 mg PO HS Gastrointestinal Issue 05/05/23
bupropion HCl 150 mg 24 hr tablet, 150 mg PO DAILY Mental Health 10/20/23
extended release
cyclobenzaprine 10 mg tablet 20 mg PO HS Muscle Spasms 10/20/23
furosemide 40 mg tablet 40 mg PO DAILYPRN PRN 2 lb weight 10/20/23
gain
ropinirole 4 mg tablet 4 mg PO HSPRN PRN restless leg 10/20/23
diclofenac sodium 1 % topical gel 1 ea topical DAILY PRN lower back 01/30/24
& B/L calves
potassium chloride 20 mEq oral 20 meq PO TID Supplement 11/02/24
packet
qhigft-czanfjeg-xokjaia 2 cap PO MEALS 01/03/25
36,000-114,000-180,000 unit
capsule,delay rel (Creon)
morphine 15 mg immediate release 15 mg PO BIDPRN PRN severe pain 01/17/25
tablet
bismuth subsalicylate 262 mg/15 mL 524 mg PO TIDPRN PRN stomach issues 03/12/25
oral suspension (Pepto-Bismol)
hydromorphone 2 mg tablet 2 mg PO BIDPRN PRN severe pain 03/12/25
lidocaine-prilocaine 2.5 %-2.5 % 1 applic topical DAILYPRN PRN port 03/12/25
topical cream & B/L legs
fbcxyb-wrmnwrmo-rcqiwmm 1 cap PO .AFTERNOON PRN snacks 03/12/25
36,000-114,000-180,000 unit
capsule,delay rel (Creon)
tirzepatide 5 mg/0.5 mL 5 mg SC TH Diabetes 03/12/25
subcutaneous pen injector
(Mounjaro)
Past History
Past History
ED Past Medical History: Arrthythmia (Tachycardia), Asthma, CAD, CHF, COPD, Fibromyalgia, GERD, HTN, Hypothyroidism, Psychiatric (Anxiety, Depression), Other (Migraines, Neuropathy, Arms and leg numbness, Restless leg syndrome, Sleep apnea,
Ideopathic edema Diverticulitis, Hiatal hernia, IBS, Gastroparesis, PNA, Edema,) and Other (Endometriosis, Uterine fibroid, PCOS, Eczema, Macular degeneration, Iron Def anemia, Pancreatic enzyme insufficiency, Hemochromotosis, back pain, Liver
biopsy)
ED Past Surgical History: Cholecystectomy, Gynecological (Ovarian cyst surgery X 3), Orthopedic (Bilateral knee surgery, Right finger surgery, ), Tonsilectomy (and adenoids) and Other (Laparoscopies, Duodenal switch , Cataracts, Hernia repair,
Uvelectomy)
Family/Social History
Tobacco: Non-smoker
Alcohol: None
Drug: None
Personal:
Living: with family
Family History: Diabetes

Documented by User: Tiago Hui MD 03/13/25 17:39
CVA Assessment
NIH Stroke Score
NIH Total Score:: 0
Modified [place] Score (MRS)
-
Score: 1
--- NOTE | 2025-03-13 09:30 | CARDSERVLU ---
Echocardiogram with Lumason completed after protocol screening completed. Allergies verified.
Patent IV site: __new start 20 P RAC 1st attempt___
IV site flushed with 0.9% NaCl pre and post administration.
Diluted bolus method utilized to enhance visualization of ventricular mcknight.
Total volume given: __3.0__ mL
site left in at completion of test, pt for CT scan.
She does have accessed SQ port.
Patient tolerated all procedures well without complications.
[2025-03-13 09:45] LABS: Glycohemoglobin (HgbA1c) 5.5 % (4.0-5.6)
[2025-03-13] MEDS: PLAVIX 75 MG PO (10:35)
--- NOTE | 2025-03-13 11:38 | CON.CAR ---
Addendum entered and electronically signed by Frantz Alexander MD 03/13/25 15:45:
I saw and evaluated and examined the patient. I reviewed the resident�s note and agree with findings and plan as documented in the resident�s note.
59-year-old woman with a history of hemochromatosis, transient cardiomyopathy, hypokalemia, gastric bypass, CKD, anemia who presented 03/12/2025 with complaints of headache, nausea transient blurred vision and some episodes of numbness in her arms.
Patient admitted to the hospitalist service. MRI 03/13/2025 demonstrates a large acute ischemic transcortical infarct involving the posterior medial left temporal lobe anterior small acute ischemic infarct in the medial left occipital lobe chronic
ischemic infarct in right cerebral hemisphere and small chronic transcortical infarct involving the posterior right parietal lobe. Patient's been monitored on telemetry and has been in sinus rhythm. She had an echocardiogram today which shows
reduced left ventricular function with an ejection fraction of 25 to 30% there is aortic sclerosis without stenosis. There is a small/subtle mobile echodensity associated with the aortic valve which may be related to the aortic sclerosis but a
small vegetation could not be excluded.
Patient without complaints of chest pain or shortness of breath she has had intermittent palpitations over the course of 10 years episodes last a couple minutes feels like her heart is beating a bit differently and a bit faster she goes long
intervals of time without having any symptoms. No orthopnea or lower extremity edema no fever she says she sometimes gets chills at night but this is not a new symptom it has been going on for years. No recent illness.
cath 2013 - some luminal irre. no significant CAD
.
Acute CVA with MRI and findings as noted above.
- Etiology unclear
- Telemetry
- Would recommend EVELYN. Patient does have significant GI history sometimes feels like she has more trouble swallowing steak. She had this same symptom around the time she had her last EGD which was a year ago. I reviewed issues with
gastroenterology who reviewed her last endoscopy and did not feel that there was a significant contraindication to EVELYN. Would mostly plan for transesophageal views. Patient's had previous gastric bypass and small stomach.
- BC
.
Cardiomyopathy.
- New diagnosis significant reduction in left ventricular function compared to a year ago now ejection fraction is estimated at 25 to 30% although she reportedly has had a transient cardiomyopathy in the past this is lower than previous ejection
fractions. Patient currently appears adequately compensated and euvolemic
- GDMT will likely be limited by blood pressure. May consider use of Farxiga or Jardiance and can also consider spironolactone particular in this patient who has had issues with hypokalemia. 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
Patient had been on spironolactone in the past and then apparently was stopped during a hospitalization when she had low blood pressure.
- Eventual evaluation for coronary artery disease. However will hold off until patient has additional recovery from CVA. With recent CVA would likely proceed with noninvasive evaluation/Lexiscan
. Hemochromatosis
-Anemia
-Hypokalemia
Original Note:
Consultation
Consultation Request
Date/Time Consultation Requested: 03/13/2025 10:41
Date/Time Consultation Performed: 03/13/2025 11:45
Requesting Provider: Dr. Blaine Treviño
Performing Provider: Dr. Frantz Alexander
Reason for Consultation: New HFrEF
Medical History
-
Chief Complaint: Stroke
History of Present Illness:
59-year-old female with past medical history of hereditary hemochromatosis, previous cardiomyopathy EF 45% to recovered 01/31/24 EF 50-55%, CKD IIIa, Type 2 diabetes, anemia of chronic disease, asthma, GERD/hiatal hernia, peripheral neuropathy,
sleep apnea - CPAP, fibromyalgia, hypothyroidism, macular degeneration, rheumatoid arthritis, fatty liver, PCOS/endometriosis, chronic opioid dependence, restless leg syndrome, obesity status post bariatric surgery presented to the ED with headache,
nausea and confusion. For the past few days, patient has been experiencing headaches, increasing bouts of nausea and confusion. These episodes of intense nausea last 10 to 15 minutes and go away. She denies any vomiting. She has also noticed
some blurry vision and numbness in the bilateral arms and chest. Her noted that her mood hasn't been the same and she appears to have a harder time thinking. She denied any weakness. Has been recommended her to come to the ED for further
evaluation.
In the ED, patient has blood pressure 144/84, heart rate 97, respiratory 20, afebrile satting well on room air. Creatinine at baseline 1.2, blood sugar 250, hemoglobin 10.3, lactic acid 2.4, troponin negative. EKG sinus rhythm. Head CT was
ordered which revealed a hypodensity within the left occipital lobe which extended into the posterior left temporal lobe representing possible infarction. Patient was admitted for further workup with an MRI scheduled for the a.m. and given her
history of HFpEF, repeat echo was done. Echo on 03/13/2025 revealed ejection fraction 25 to 30% with severely reduced left ventricular systolic function. There was also aortic sclerosis with more focal thickening of the right coronary cusp leaflet
for which vegetation cannot be excluded. Cardiology was consulted for further evaluation of her significant drop in ejection fraction.
Upon further questioning, patient does endorse episodes of heart palpitations over the past couple of years with at least 10 episodes in the last few months. These episodes of feeling like her heart was racing up last a few minutes up to a few
hours. They do not appear to be triggered by anything. Typically she just sits down for the duration of the palpitations and they go away. They are often associated with the dizziness and feelings of lightheadedness. She denies any chest pain or
shortness of breath. She also endorses chills at night, no fevers. She has been intentionally trying to loose weight.
Past Medical History
Past Medical History: Other (hereditary hemochromatosis, previous cardiomyopathy EF 45% to recovered 08/2022 EF 50-55%, CKD IIIa, Type 2 diabetes, anemia of chronic disease, asthma, GERD/hiatal hernia, peripheral neuropathy, sleep apnea CPAP,
fibromyalgia, hypothyroidism, macular degeneration, rheumatoid arthritis, fatty liver,)
Past Surgical History: Other (Oscar-en-Y Gastric Bypass (2020), Cholecystectomy, UP3, Arthroscopies of the knees, Ex Lap for endometriosis, R ACW Port Placement)
Social History
Tobacco: Non-Smoker
Alcohol: None
Drug: None
Personal:
Living: With Family
Family History
Family History: Other (Mother: CVA, CAD Father: TIA, CAD )
Allergies / Home Medications
Allergy/AdvReac Type Severity Reaction Status Date / Time
cat dander Allergy Shortness Verified 03/12/25 17:56
of
Breath/congestion
dog dander Allergy Shortness Verified 03/12/25 17:56
of
Breath/congestion
grass pollen Allergy Shortness Verified 03/12/25 17:56
of
Breath/ASTHMA
ATTACK
house dust Allergy Shortness Verified 03/12/25 17:56
of
Breath/ASTHMA
EXACERBATION
house dust mite Allergy Shortness Verified 03/12/25 17:56
of
Breath/ASTHMA
EXACERBATION
shellfish derived Allergy Nausea / Verified 03/12/25 17:56
Vomiting
Sulfa (Sulfonamide Allergy Nausea / Verified 03/12/25 17:56
Antibiotics) Vomiting
tree and shrub pollen Allergy [place] Verified 03/12/25 17:56
B
�Medication �Instructions �Recorded �Confirmed �Type
levothyroxine 50 mcg tablet 50 mcg PO DAILY Thyroid 10/05/19 03/12/25 History
omeprazole 40 mg capsule,delayed 40 mg PO DAILY Gastrointestinal 02/27/21 03/12/25 History
release Issue
multivitamin 1 tab PO DAILY Supplement 04/30/23 03/12/25 History
zolpidem 10 mg tablet 10 mg PO HS Sleep 04/30/23 03/12/25 History
famotidine 40 mg tablet 40 mg PO HS Gastrointestinal Issue 05/05/23 03/12/25 History
bupropion HCl 150 mg 24 hr tablet, 150 mg PO DAILY Mental Health 10/20/23 03/12/25 History
extended release
cyclobenzaprine 10 mg tablet 20 mg PO HS Muscle Spasms 10/20/23 03/12/25 History
furosemide 40 mg tablet 40 mg PO DAILYPRN PRN 2 lb weight 10/20/23 03/12/25 History
gain
ropinirole 4 mg tablet 4 mg PO HSPRN PRN restless leg 10/20/23 03/12/25 History
diclofenac sodium 1 % topical gel 1 ea topical DAILY PRN lower back 01/30/24 03/12/25 History
& B/L calves
potassium chloride 20 mEq oral 20 meq PO TID Supplement 11/02/24 03/12/25 History
packet
tzrsoo-irinqpqb-rtjlyic 2 cap PO MEALS 01/03/25 03/12/25 History
36,000-114,000-180,000 unit
capsule,delay rel (Creon)
morphine 15 mg immediate release 15 mg PO BIDPRN PRN severe pain 01/17/25 03/12/25 History
tablet
bismuth subsalicylate 262 mg/15 mL 524 mg PO TIDPRN PRN stomach issues 03/12/25 03/12/25 History
oral suspension (Pepto-Bismol)
hydromorphone 2 mg tablet 2 mg PO BIDPRN PRN severe pain 03/12/25 03/12/25 History
lidocaine-prilocaine 2.5 %-2.5 % 1 applic topical DAILYPRN PRN port 03/12/25 03/12/25 History
topical cream & B/L legs
vwupdb-vgivpjug-flrahss 1 cap PO .AFTERNOON PRN snacks 03/12/25 03/12/25 History
36,000-114,000-180,000 unit
capsule,delay rel (Creon)
tirzepatide 5 mg/0.5 mL 5 mg SC TH Diabetes 03/12/25 03/12/25 History
subcutaneous pen injector
([place])
Review of Systems
-
History Source: Patient
EENT: No Symptoms
Respiratory: No Symptoms
Cardiac: No Symptoms
Abdomen/GI: Nausea
Musculoskeletal: No Symptoms
Neurological: Dizzy, Weakness, Numbness and Other (Confusion)
Physical Exam
Vital Signs
Temp Pulse Resp BP Pulse Ox
98.1 F 98 20 126/82 98
03/13/25 07:00 03/13/25 07:00 03/13/25 07:00 03/13/25 07:00 03/13/25 07:00
Lab Results
03/13/25 04:17
03/13/25 04:17
Troponin I < 0.012 ng/ml 03/12/25 20:59
Physical Exam
General: No Apparent Distress and Comfortable
Respiratory: Clear
Cardiac: S1/S2 and Regular Rhythm
GI: Soft, Normal Bowel Sounds and Tender
Musculoskeletal: Edema (slight peripheral edema )
Skin: Warm and Dry
Neuro: AO x 3
Psych: Calm
Impression / Plan
-
59-year-old female with past medical history of hereditary hemochromatosis, previous cardiomyopathy EF 45% to recovered 01/31/24 EF 50-55%, CKD IIIa, Type 2 diabetes, anemia of chronic disease, asthma, GERD/hiatal hernia, peripheral neuropathy,
sleep apnea - CPAP, fibromyalgia, hypothyroidism, macular degeneration, rheumatoid arthritis, fatty liver, PCOS/endometriosis, chronic opioid dependence, restless leg syndrome, obesity status post bariatric surgery presented to the ED with headache,
nausea and confusion. CT, head and neck CTA and MRI confirm acute stroke in the posteromedial left temporal lobe (results below). She has been started on ASA and plavix. Given known hx HFpEF, repeat echo was done and revealed severely reduced left
ventricular systolic function with LVEF 25 to 30%. A sclerosis with focal thickening of the right coronary cusp leaflet for which vegetation cannot be excluded. Mild valvular disease. She does endorse episodes of heart palpitations that feel
irregular over the past few years with at least 10 in the last few months. Cardiology was consulted to evaluate significant drop in EF on echo and underlying cardiac causes of stroke.
Primary quarter folder: Dr. Davila
Large 4.5 cm ACUTE ISCHEMIC INFARCT in the POSTEROMEDIAL LEFT TEMPORAL LOBE
--Head CT, head and neck CTA and MRI confirm presence of acute infarct
--Started on ASA and plavix
--Neurology following
--LDL 31 at goal, hga1c 5.5, moderate calcified plaque in carotids bilaterally on head and neck CTA but no focal stenosis
--Echo 03/13/25 EF 25-30% also noted small mobile echodensity on aortic leaflet where vegetation cannot be excluded
--Episodes of palpitations is concerning for atrial fibrillation
--EVELYN to rule out vegetation
--Plan for Holter monitor outpatient
Compensated HFrEF: New drop in EF from echo 01/31/24 50-55% to 03/13/25 EF 25-30%
--Differentials for worsening EF include ischemic event and tachycardiomyopathy as her hemochromatosis has been well controlled (% saturation <50%) and unlikely to contributory
--Troponins (-) and EKG non-ischemic
--Plan for cardiac stress test outpatient after acute illness managed
--Okay to add farxiga from cardiac standpoint
--Will discuss spironolactone with Dr. Allen who manages her hypokalemia and CKD IIIa
--Avoid BB, TC/ARBs for now due to episodes of hypotension in the past requiring midodrine
--Okay for home PRN lasix 40mg if signs of volume overload
--Follow I&Os, daily weights
HLD
--LDL at goal 31
Anemia of CKD
Hereditary hemochromatosis
--Stable. Hg at known baseline.
--% saturation 22 (% saturation <50% = controlled hemochromatosis)
--Last phlebotomy 3 weeks ago.
--Follows with [employer] priming tool setter Dr. Martinez
--Primary team appreciated
DM-II
--HgA1c 5.5 at goal
--Monjaro on hold
--On SSI
--Add Farxiga if okay with primary team
S/p bariatric surgery/ GERD/Hiatal hernia
Hypokalemia
Chronic opioid dependence/chronic pain syndrome
Hypothyroidism
Pancreatic insufficiency
DVT: SCD
Full Code
Echo 03/13/2025:
CONCLUSIONS
Severely reduced left ventricular systolic function.
LV ejection fraction is 25-30% .
Aortic sclerosis with more focal thickening of the right coronary cusp leaflet.
In the parasternal long axis there is some mobile echodensity along the
ventricular side of the valve which may just be related to aortic thickening
and sclerosis.. Vegetation cannot be excluded
Trace aortic regurgitation
Trace mitral regurgitation
Mild tricuspid regurgitation.
When compared with the previous study from 01/31/2024 there is been significant
reduction in the left ventricular function. Aortic sclerosis is again seen
however a small mobile echodensity is more easily seen on the associated with
the aortic valve is more easily seen on the current study
MRI 03/13/25: LARGE 4.5 cm ACUTE ISCHEMIC INFARCT in the POSTEROMEDIAL LEFT TEMPORAL LOBE.
2. Small 3.6 mm acute ischemic infarct in the medial left occipital lobe.
3. 5 mm chronic ischemic infarct in the right cerebellar hemisphere.
4. Small chronic transcortical infarct in the posterior right parietal lobe.
5. Moderate white matter leukoaraiosis in the parietal lobes.
6. Moderate volume loss in the frontal lobes, parietal lobes, and temporal lobes.
[2025-03-13 12:37] LABS: Glucose - Point of Care 96 mg/dl (70-99)
--- NOTE | 2025-03-13 14:18 | CM ---
CM following re: discharge planning.
Reviewed pt's chart, met with pt.
Pt is a 59 year old female, admitted with primary dx of CVA.
Pt reports she lives with in a 2SH townhouse, has 2 big dogs. Pt reports she ambulates with a walker and a cane, known to [facility]. Pt stated she has a good day when she can walk independently and bad days when she cannot walk at all.
PT and OT evaluations noted - outpatient PT/OT recommended. Pt is aware and she stated she will come to outpatient therapy.
PCP: Roxy Hussein
[facility]
D/C plan: home with outpatient therapy: PT,OT and family support. to transport at discharge.
CM will follow with discharge plan updates as hospitalization progresses
--- NOTE | 2025-03-13 14:46 | PTOTSP ---
Speech Therapy Evaluation:
Swallow:
Pt with acute on chronic risk factors of dysphagia. Acute component related to CVA. Chronic component related to pt reported hx of recurrent pneumonias/aspiration pneumonia. She reported participation in multiple swallowing tests however unable to
further elaborate on results/ place of testing. She does not think aspiration was shown on testing. She denied any previous diet modifications or history of speech therapy. At bedside, oral phase WFL and pt without s/sx of aspiration. She passed
3oz, WBC WNL, pt afebrile, on room air, and CXR with likely atelectasis (however cannot exclude pneumonia).
Cognition:
Pt earned an overall score of 22/30 on the MOCA, indicative of mild cognitive deficits per parameters of this assessment. Pt demonstrated reduction in visuospatial/executive functioning, generative naming, and delayed recall. Reading intact. Pt also
experiencing visual hallucinations, expressing to ACCOUNT STRATEGIST that she is seeing silhouettes of people and 'paper ripping' in front of her. 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
following d/c.
Recommend:
1. Cont. regular solids and thin liquids
2. Meds as tolerated
3. General aspiration and reflux precautions
4. ACCOUNT STRATEGIST to follow at acute care level for swallowing to monitor tolerance of diet and determine if pt would benefit from instrumental given hx of recurrent pneumonias/aspiration pneumonia
5. ACCOUNT STRATEGIST to follow at acute care level and following discharge for cognitive linguistic skills.
--- NOTE | 2025-03-13 14:55 | W.PN.UPDATE ---
Update Note
Progress Note Update
59-year-old woman with a history of hemochromatosis, transient cardiomyopathy, hypokalemia, gastric bypass, CKD, anemia who presented 03/12/2025 with complaints of headache, nausea transient blurred vision and some episodes of numbness in her arms.
Patient admitted to the hospitalist service. MRI 03/13/2025 demonstrates a large acute ischemic transcortical infarct involving the posterior medial left temporal lobe anterior small acute ischemic infarct in the medial left occipital lobe chronic
ischemic infarct in right cerebral hemisphere and small chronic transcortical infarct involving the posterior right parietal lobe. Patient's been monitored on telemetry and has been in sinus rhythm. She had an echocardiogram today which shows
reduced left ventricular function with an ejection fraction of 25 to 30% there is aortic sclerosis without stenosis. There is a small/subtle mobile echodensity associated with the aortic valve which may be related to the aortic sclerosis but a
small vegetation could not be excluded.
Patient without complaints of chest pain or shortness of breath she has had intermittent palpitations over the course of 10 years episodes last a couple minutes feels like her heart is beating a bit differently and a bit faster she goes long
intervals of time without having any symptoms. No orthopnea or lower extremity edema no fever she says she sometimes gets chills at night but this is not a new symptom it has been going on for years. No recent illness.
cath 2013 - some luminal irre. no significant CAD
.
Acute CVA with MRI and findings as noted above.
- Etiology unclear
- Telemetry
- Would recommend EVELYN. Patient does have significant GI history sometimes feels like she has more trouble swallowing steak. She had this same symptom around the time she had her last EGD which was a year ago. I reviewed issues with
gastroenterology who reviewed her last endoscopy and did not feel that there was a significant contraindication to EVELYN. Would mostly plan for transesophageal views. Patient's had previous gastric bypass and small stomach.
- BC
.
Cardiomyopathy.
- New diagnosis significant reduction in left ventricular function compared to a year ago now ejection fraction is estimated at 25 to 30% although she reportedly has had a transient cardiomyopathy in the past this is lower than previous ejection
fractions. Patient currently appears adequately compensated and euvolemic
- GDMT will likely be limited by blood pressure. May consider use of Farxiga or Jardiance and can also consider spironolactone particular in this patient who has had issues with hypokalemia. I did review the issues with her administrative services specialist Dr. Allen.
Patient had been on spironolactone in the past and then apparently was stopped during a hospitalization when she had low blood pressure.
- Eventual evaluation for coronary artery disease. However will hold off until patient has additional recovery from CVA. With recent CVA would likely proceed with noninvasive evaluation/Lexiscan
. Hemochromatosis
-Anemia
-Hypokalemia
[2025-03-13 17:05] LABS: Glucose - Point of Care 133 mg/dl (70-99)
[2025-03-13] MEDS: REGLAN 10 MG IV (17:45)
[2025-03-13 21:19] LABS: Glucose - Point of Care 179 mg/dl (70-99)
[2025-03-13] MEDS: PEPCID 40 MG PO (22:10)
[2025-03-14] VITALS (7 sets, daily range): BP systolic 128–141; BP diastolic 71–89; PULSE 89; O2SAT 100; BMI 23.5
[2025-03-14 06:05] LABS: Glucose - Point of Care 92 mg/dl (70-99)
[2025-03-14] MEDS: SYNTHROID 50 MCG PO (06:12)
--- NOTE | 2025-03-14 07:23 | W.DCSUMMARY ---
Discharge Summary
Discharge Data
Date of Admission: 03/12/25
Date of Discharge: 03/14/25
Total time spent discharging patient (in min): >30m
-
Pending Results: No
Hospital Course
Discharging Physician : Dr. Manny Hall
Disposition : Home
Primary care physician : Dr. Roxy Hussein
Principal Discharge diagnosis : Acute CVA, aortic echodensity
Chronic Discharge diagnosis : Anemia of CKD, hereditary hemochromatosis, [id number] diabetes, CKD stage III, acute cardiomyopathy, chronic HFpEF, status post bariatric surgery, hypokalemia, GERD, chronic pain syndrome, chronic opioid
dependence, hypothyroidism, pancreatic insufficiency
Hospital Course :
59 yo female with a pmhx of NIDDM, CHF, anemia, hereditary hemochromatosis who presented to the ED for evaluation of headache, nausea, confusion worsening over the last week.
#Acute CVA
Presenting with symptoms of headache, nausea, worsening confusion. Neurologic exam was unremarkable except for memory issues. CT head done in the ED showed area concerning for infarct (report below). MRI brain was ordered for confirmation, showing a
large ACUTE ISCHEMIC INFARCT in the POSTEROMEDIAL LEFT TEMPORAL LOBE and smaller areas of infarct (reports below). She was seen by Neurology and started initially on aspirin and Plavix. her LDL was at goal on current dose statin. Echo was done per
stroke workup which showed LVEF 25-30%, worsened from prior, and small echodensity on aortic valve. Regarding her stroke, she remained stable without any new developing neurological symptoms. Further workup revealed echodensity concerning for
possible thrombus for which she was transitioned from DAPT to Eliquis.
#Aortic Echodensity
As mentioned a TTE demonstrated a small echodensity on aortic valve. Confirmatory EVELYN showed a small echodensity on the R atrial wall concerning for thrombus vs. myxoma vs. eustachian valve remnant. No concern for infectious endocarditis at this
time as patient had no fever, chills, leukocytosis or other systemic signs. She was started on Eliquis 10mg BID x7d and then reduce to 5mg BID for 90 days for DVT dosing.
#Anemia of CKD
#Hereditary hemochromatosis
There were no signs of active bleeding during admission. Hgb ranged from 9.3 -10.3 and she did not require transfusions. Iron panel from 03/12/2025 is as follows: Ferritin 14.3, TIBC 251, sat 22%, Total Iron 57. Hgb on day of discharge 03/14/2025 was
9.8.
#Acute cardiomyopathy w/ worsening LVEF
#Chronic HFpEF
She was not in acute exacerbation of heart failure during admission. I/Os and daily weights were checked. home prn lasix was held as she did not have weight gain >2lbs. TTE showed severely reduced LVEF as above (full reports below). She was started
on GDMT with Farxiga 10mg qd, Metoprolol 12.5mg qd, and Entresto 24mg/26mg. She was scheduled for Cardiology follow up as outpatient for medication follow up and repeat EVELYN in 4-6 weeks. Likely to proceed with ischemic workup and ILR placement as
outpatient for acutely worsening systolic function.
#NIDDM
A1C on 03/13/2025 was 5.5% Outpatient medication was held during her stay and she was managed on LDISS with POC glucose checks. All home medication was resumed on discharge. Farxiga was added as above on discharge for GDMT for HF.
All other chronic medical conditions were stable throughout admission, unless otherwise specified above. She was continued on home medication for her chronic medical conditions, unless otherwise specified above.
Important imaging findings :
Head CT (03/12/2025):
There is a hypodensity within the left occipital lobe which extends into the posterior left temporal lobe which may represent an infarction.
Brain MRI (03/13/2025):
1. LARGE 4.5 cm ACUTE ISCHEMIC INFARCT in the POSTEROMEDIAL LEFT TEMPORAL LOBE.
2. Small 3.6 mm acute ischemic infarct in the medial left occipital lobe.
3. 5 mm chronic ischemic infarct in the right cerebellar hemisphere.
4. Small chronic transcortical infarct in the posterior right parietal lobe.
5. Moderate white matter leukoaraiosis in the parietal lobes.
6. Moderate volume loss in the frontal lobes, parietal lobes, and temporal lobes.
Head/Neck CTA (03/13/2025):
Focal hypodensity in the left occipital lobe probably subacute infarct. This would better be evaluated by MR examination. The patient is schedule today.
Mild atrophy.
No M1 nor M2 occlusion
Probable focal atelectasis/scarring in the right upper lobe. Pneumonia and a mass cannot be excluded. Progressed. PET imaging recommended
Procedure findings :
Echocardiography Report (03/13/2025):
CONCLUSIONS
Severely reduced left ventricular systolic function.
LV ejection fraction is 25-30% .
Aortic sclerosis with more focal thickening of the right coronary cusp leaflet.
In the parasternal long axis there is some mobile echodensity along the
ventricular side of the valve which may just be related to aortic thickening
and sclerosis.. Vegetation cannot be excluded
Trace aortic regurgitation
Trace mitral regurgitation
Mild tricuspid regurgitation.
When compared with the previous study from 01/31/2024 there is been significant
reduction in the left ventricular function. Aortic sclerosis is again seen
however a small mobile echodensity is more easily seen on the associated with
the aortic valve is more easily seen on the current study
Transesophageal Echo Report (03/14/2025):
CONCLUSIONS
Dilated left ventricle with severely reduced systolic function. LVEF 20-25%.
Concern for LV noncompaction.
Mobile echodensity attached to the right atrial wall at the junction of the
IVC. Differential diagnosis includes thrombus, vegetation, eustachian valve
remnant, or cast from chemo port.
No PFO.
No significant valvular disease.
No significant change compared to TTE on March 13, 2025, though RA echodenisty
not visualized on that study. Primary team notified of EVELYN findings.
Anticoagulation started for possible right atrial thrombus. Plan for repeat EVELYN
in 4-6 weeks.
Discharge Plan
-
Patient Disposition: Home (Routine Discharge)
Discharge Diagnosis/Procedures: Acute CVA, Cardiomyopathy, R atrial Echodensity
Condition: Fair
Diet: Low Cholesterol and Diabetic, Carb Controlled
Activity: As tolerated
Driving Restrictions: As prior to admission
Specialty Instructions: Weigh Daily- Call MD for wt gain/loss 3 lbs overnight/5 lbs in 1 week
Referrals:
Brea Puentes MD [Active, Hematology / Oncology]
Roxy Hussein MD [Family Provider, Family Practice]
Zack Davila MD [Active, Cardiology]
Additional Discharge Medication Instructions: NEW MEDICATION:
Take Eliquis 10mg twice per day x7d, then take Eliquis 5mg twice per day for treatment of possible blood clot in the R atrium
Take Farxiga 10mg once per day for Treatment of Heart Failure
Take Entresto 24/26 mg once per day for Treatment of Heart Failure
Take Metoprolol 12.5mg once per day for Treatment of Heart Failure
If you notice your blood pressure is getting too low, you can take the Metoprolol at night instead of in the morning.
You will follow up with Cardiology as outpatient for repeat imaging of the heart and further cardiac workup.
Contact your primary care doctor within the week to let them know about the hospitalization and new medication.
Contact your [employer] to let her know about your hospital stay and reschedule phlebotomy as appropriate.
Prescriptions:
New
Eliquis 5 mg Tablet
10 mg PO BID 7 Days Qty: 28 0RF
dapagliflozin propanediol 10 mg Tablet
10 mg PO DAILY 90 Days Qty: 90 0RF
Entresto 24-26 mg Tablet
1 tab PO BID 30 Days Qty: 60 0RF
metoprolol succinate 25 mg Tablet Extended Release 24 Hr
12.5 mg PO DAILY 30 Days Qty: 15 1RF
Eliquis 5 mg Tablet
5 mg PO BID 30 Days Qty: 60 2RF
Continued
levothyroxine 50 MCG tablet
50 mcg PO DAILY
omeprazole 40 MG capsule,delayed release(DR/EC)
40 mg PO DAILY
multivitamin Tablet
1 tab PO DAILY
zolpidem 10 mg Tablet
10 mg PO HS
famotidine 40 mg Tablet
40 mg PO HS
cyclobenzaprine 10 mg Tablet
20 mg PO HS
ropinirole 4 mg Tablet
4 mg PO HSPRN PRN (Reason: restless leg)
bupropion HCl 150 mg tablet extended release 24 hr
150 mg PO DAILY
furosemide 40 mg tablet
40 mg PO DAILYPRN PRN (Reason: 2 lb weight gain)
diclofenac sodium 1 % Gel
1 ea TOPICAL DAILY PRN (Reason: lower back & B/L calves)
potassium chloride 20 mEq packet
20 meq PO TID
Creon 36,000-114,000- 180,000 unit Capsule,Delayed Release(Dr/Ec)
2 cap PO MEALS
morphine 15 mg Tablet
15 mg PO BIDPRN PRN (Reason: severe pain)
lidocaine-prilocaine 2.5-2.5 % Cream
1 applic TOPICAL DAILYPRN PRN (Reason: port & B/L legs)
bismuth subsalicylate [Pepto-Bismol] 262 mg/15 mL Suspension
524 mg PO TIDPRN PRN (Reason: stomach issues)
Creon 36,000-114,000- 180,000 unit Capsule,Delayed Release(Dr/Ec)
1 cap PO .AFTERNOON PRN (Reason: snacks)
Mounjaro 5 mg/0.5 mL pen injector
5 mg SC TH
hydromorphone 2 mg Tablet
2 mg PO BIDPRN PRN (Reason: severe pain)
Discharge Orders:
Discharge Patient (As Directed); Ordered 03/14/25
Ordered By: Blaine Treviño
Discharge Date and Time
Discharge Date/Time: 03/14/25 20:51
Print Language: DIVEHI
--- NOTE | 2025-03-14 07:24 | W.PN.HOSP.TC ---
Addendum entered and electronically signed by Blaine Treviño MD, Resident 03/16/25 09:28:
Patient with acute CVA and consequential cytotoxic edema as seen on MRI imaging
UA suggestive of asymptomatic bacteriuria with no indication for treatment.
Addendum entered and electronically signed by Manny Hall MD 03/14/25 14:55:
Presenting with headache confusion and nausea
CT brain demonstrating hypodensity in the left occipital lobe
Acute CVA, large 4.5 cm acute ischemic infarct in the posterior left temporal lobe, small 3.6 mm acute ischemic infarct in the left medial septal lobe, 5 mm chronic ischemic infarct in the right cerebellar hemisphere, small chronic transcortical
infarct of the posterior right parietal lobe
PT OT speech
-PT/OT rec outpatient therapy.
21 days of dapt. followed by asa
2D echo, new HFrEF EF 25 to 30%, possible vegetation, EVELYN completed, wihtout evidence of Left sided veg, per cardiology there is something on the right atrial wall, not clot so no AC needed, but unsure, would appreicate cards further input
Holter monitor/Long outpatient tele monitor (ILR) will be needed prior to discharge or with outpatient cardiology follow-up if unable to detect atrial fibrillation, appreciate cards input about this
Monitor on telemetry
HFrEF, EF 25-30%
Reports history of palpitations for the last couple weeks lasting for 5 minutes. Therefore cannot rule out tachycardia induced nonischemic cardiomyopathy versus ischemic cardiomyopathy requiring a ischemic workup
Euvolemic on exam
Start Toprol 12.5mg qd
Start Valsartan 40mg qd
Start Jardiance 10mg qd
Normocytic anemia, related to anemia of chronic kidney disease
Without evidence of acute active bleeding
Monitor hemoglobin
Transfuse less than 7
Diabetes type 2
Accu-Chek sliding scale goal blood glucose 140-180
Carb controlled diet
Hypothyroidism
Continue levothyroxine
CPRS/chronic opioid dependence
Continue current dosing
Pancreatic insufficiency
Continue Creon with meals
Original Note:
Today's Communication/Plan
-
EVELYN today
c/w aspirin/plavix
Assessment / Plan
Assessment / Plan
59 yo female with a pmhx of NIDDM, CHF, anemia, hereditary hemochromatosis who presented to the ED for evaluation of headache, nausea, confusion worsening over the last week.
Head CT:
There is a hypodensity within the left occipital lobe which extends into the posterior left temporal lobe which may represent an infarction.
Brain MRI:
1. LARGE 4.5 cm ACUTE ISCHEMIC INFARCT in the POSTEROMEDIAL LEFT TEMPORAL LOBE.
2. Small 3.6 mm acute ischemic infarct in the medial left occipital lobe.
3. 5 mm chronic ischemic infarct in the right cerebellar hemisphere.
4. Small chronic transcortical infarct in the posterior right parietal lobe.
5. Moderate white matter leukoaraiosis in the parietal lobes.
6. Moderate volume loss in the frontal lobes, parietal lobes, and temporal lobes.
Head/Neck CTA:
Focal hypodensity in the left occipital lobe probably subacute infarct. This would better be evaluated by MR examination. The patient is schedule today.
Mild atrophy.
No M1 nor M2 occlusion
Probable focal atelectasis/scarring in the right upper lobe. Pneumonia and a mass cannot be excluded. Progressed. PET imaging recommended
#Acute CVA
- neurologic exam unremarkable except for memory issues at this time
- CT Head/Brain MRI as above showing multiple areas of acute infarct
- c/w aspirin/Plavix x21d course
- c/w statin with LDL goal <70 (currently at goal - 31)
- goal of normotension/normoglycemia
- c/w neuro checks
- Echo per stroke workup demonstrating worsening EF to 25-30% from prior with small echodensity on aortic valve
- Neurology following
- Cardiology following
#Aortic Echodensity
- found on recent Echo as above, concern for possible Vegetation, especially given acute CVA with multiple infarcted areas
- patient does, on further questioning endorse several months of chills and intermittent night sweats, however is afebrile and without leukocytosis during this admission. Reports weight loss, but was also recently started on mounjaro.
- There is poor dentition and she has not yet been seen by dentist to address this
- she has a port/catheter in the R chest wall used for serial phlebotomy, which is nontender and w/o surrounding erythema
- EVELYN today
#?Migraines vs. metabolic 2* acute CVA
- Intermittent symptoms of headache, nausea w/ paresthesias of the Upper and Lower extremities
- c/w Migraine cocktail PRN, though sx most likely related to multiple areas of acute brain infarct
#Anemia of CKD
#Hereditary hemochromatosis
- patient has R sided tunnel catheter for serial therapeutic phlebotomy; follows with Dr. Reinoso Heme/Onc
- no signs of active bleeding
- Stable, well controlled as OP
- Hgb 9.3/Hct 29%
- Ferritin 14.3, TIBC 251, sat 22%, Total Iron 57
#NIDDM
- well controlled, A1C 5.5%
- Hold outpatient medications including Mounjaro.
- POC glucose checks, LDISS
#CKDIII
- Renal function is at / near known baseline
- trend CMP
#Acute cardiomyopathy w/ worsening LVEF
#Chronic HFpEF
- Not in acute exacerbation
- Follow I/Os, daily weights
- hold home prn lasix for now, if signs of volume overload or >2lb weight gain then will add back
- Last Echo was 2023 - Echo from 03/13/2025 results below:
Severely reduced left ventricular systolic function LVEF 25 to 30%
Aortic sclerosis with mobile echodensity on the ventricular side of the valve, vegetation cannot be excluded
Trace AR, trace MR, mild TR
- Cardiology plan to start on Farxiga; spironolactone was used in the past but not tolerated well
- Cards to plan further OP workup for CAD after CVA recovery
#s/p Bariatric Surgery
#Hypokalemia
#GERD
- c/w potassium supplementation.
- B12 999
- c/w antacids
#Chronic Pain Syndrome
#Chronic Opioid Dependence
- Reconciled med list including Dilaudid and Morphine.
- PDMP with no recent Dilaudid Rx.
- Continue morphine PRN at decreased dose.
#Hypothyroidism
- stable, controlled, TSH 0.83
- c/w Levothyroxine
#Pancreatic Insufficiency
- Stable. C/w Creon AC
DVT Ppx: SCDs
Code Status: Full Code
Anticipated Discharge: 24 - 48 hours
Subjective/Interval History
-
Date of Service: March 14, 2025
Feels well this morning, no acute complaints other than memory trouble, which is stable from yesterday. No acute events overnight. No new fevers or chills.
Objective Data
-
Labs:
Laboratory Results
03/14/25
07:06
WBC Pending
Hgb Pending
Hct Pending
Plt Count Pending
Sodium Pending
Potassium Pending
Chloride Pending
Carbon Dioxide Pending
BUN Pending
Creatinine Pending
Glucose Pending
Calcium Pending
Total Bilirubin Pending
AST Pending
ALT Pending
Alkaline Phosphatase Pending
Vital Signs:
Vital Signs
Temp Pulse Resp BP Pulse Ox
98.1 F 74 18 128/73 98
03/14/25 03:00 03/14/25 03:00 03/14/25 03:00 03/14/25 03:00 03/14/25 03:00
I&O
03/13/25 03/14/25 03/15/25
06:59 06:59 06:59
Intake Total 480 / 480 750 / 750
Balance 480 / 480 750 / 750
Review of Systems
-
History Source: Patient
All other systems: Reviewed and negative
Constitutional: Reports No Symptoms
EENT: Reports No Symptoms Reported
Respiratory: Reports No Symptoms
Cardiac: Reports No Symptoms
Abdomen/GI: Reports No Symptoms
Breast: Reports No Symptoms
Genitourinary: Reports No Symptoms
Musculoskeletal: Reports No Symptoms
Skin: Reports No Symptoms
Neuro: Reports Other (Memory deficit/brain fog)
Endocrine: Reports No Symptoms
Hematologic / Lymphatic: Reports No Symptoms
Physical Exam
-
General: Well Developed, Well Nourished, No Apparent Distress and Comfortable
HEENT: Normocephalic, Atraumatic, Moist Mucous Membranes, Anicteric, [place] Conjunctivae, No Ptosis, PERRLA, Nose Appears Normal and Ears Appear Normal
Respiratory: Clear to Auscultation; Negative Wheezes, Rales or Rhonchi
Cardiac: Regular Rhythm and S1/S2; Negative Murmur, Rub or Calf Tenderness
Breast: Deferred by me
GI: Soft, Nontender, Nondistended and Normal Bowel Sounds
Rectal: Deferred by Provider
Genito-urinary: No Costovertebral Tender
Musculoskeletal: No Clubbing, No Cyanosis and No Edema
Skin: Warm, Dry, IV Access / Catheter Site and Other (R chest wall catheter, dressing changed 03/12. Non tender, non erythematous, without induration/fluctuance. )
Neuro: AO x 3, No Motor Deficits and Nonfocal/Grossly Intact
Psych: Calm
[2025-03-14 07:44] LABS: Hematocrit 30.2 % (37.0-47.0); Hemoglobin 9.8 g/dL (12.0-16.0); Mean Corp Hgb Conc. 32.5 g/dL (33.0-37.0); Mean Corpuscular Volume 86.0 fL (81.0-99.0); Nucleated Red Blood Cells % 0 %; Platelet Count 194 10^3/uL (130-400); Red Cell Dist. Width 14.9 % (11.5-14.5)
[2025-03-14 08:16] LABS: ALT (SGPT) 23 U/L (0-35); AST (SGOT) 35 U/L (14-36); Albumin 3.4 g/dl (3.5-5.0); Alkaline Phosphatase 130 U/L (38-126); Blood Urea Nitrogen 13 mg/dl (7-17); Calcium 8.9 mg/dl (8.4-10.2); Carbon Dioxide 28 mmol/L (22-30); Chloride 112 mmol/L (98-107); Estimated Creatinine Clearance 50 ml/min; Glucose 86 mg/dl (70-99); Potassium 3.4 mmol/L (3.5-5.1); Sodium 139 mmol/L (135-145); Total Protein 6.1 g/dl (6.3-8.2); eGFR > 60.00
[2025-03-14] MEDS: WELLBUTRIN XL (24 hour extended release) 150 MG PO (08:31)
[2025-03-14] MEDS: ZENPEP DELAYED RELEASE CAPSULE 6 CAPSULE PO ×2 (08:31→17:19)
[2025-03-14] MEDS: LOW STRENGTH ASPIRIN 81 MG PO (08:32)
[2025-03-14] MEDS: PROTONIX 40 MG PO (08:32)
[2025-03-14] MEDS: KLOR-CON 20 MEQ PO (08:33)
[2025-03-14] MEDS: NOVOLOG FLEXPEN-LOW RESISTANCE SC ×2 (08:33→13:43)
[2025-03-14] MEDS: PLAVIX 75 MG PO (08:33)
[2025-03-14 09:30] LABS: Magnesium 1.8 mg/dl (1.6-2.3)
--- NOTE | 2025-03-14 12:17 | CM ---
Addendum entered by Wilmar Mcbride 03/14/25 15:40:
asked to check the valente for Entresto. CM called [facility] pharmacy: covered 100% by insurance, no co-pay.
Original Note:
CM following re: discharge planning.
Reviewed pt's chart, met with pt.
Pt lives with in a 2SH townhouse, has 2 big dogs, ambulates with a walker and a cane, known to [facility].
PT and OT evaluations noted - outpatient PT/OT recommended. Pt is aware and she stated she will come to outpatient therapy.
Farxiga valente checked, spoke to [facility] pharmacist, covers 100%, no co-pay. both MFD and pt have been informed.
D/C plan: home with outpatient therapy: PT,OT and family support. to transport at discharge.
CM will follow with discharge plan updates as hospitalization progresses
[2025-03-14] MEDS: ZENPEP DELAYED RELEASE CAPSULE PO (12:25)
--- NOTE | 2025-03-14 12:58 | W.PN.CD ---
Today's Communication / Plan
-
GDMT: Metoprolol succinate 12.5 mg daily, Farxiga 10 mg daily, low-dose Entresto
Will need ischemic evaluation and cMRI as outpatient for workup of new HFrEF
ILR for stroke work-up
Start Eliquis for possible RA thrombus
Plan to repeat EVELYN in 4-6 weeks
We will schedule follow-up with our office
Impression / Plan
-
59-year-old woman with a history of hemochromatosis, transient cardiomyopathy, hypokalemia, gastric bypass, CKD, anemia who presented 03/12/2025 with complaints of headache, nausea, transient blurred vision and some episodes of numbness in her arms,
found to have large acute ischemic transcortical infarct and newly reduced LVEF (25-30%).
Acute CVA with MRI and findings as noted above.
- Etiology unclear. No cardioembolic source of stroke on TTE/EVELYN. Telemetry unremarkable thus far.
- Will need ambulatory monitor vs. ILR on follow-up
- Continue statin and DAPT (x21 days)
- Plan for hypercoag testing in 6 weeks
Cardiomyopathy with severely reduced EF (25-30%)
- TTE 03/13/2025: LVEF 25-30%, aortic sclerosis, mild TR
- EVELYN 03/14/2025: LVEF 20-25%, concern for noncompaction, RA mobile echodensity, no PFO, no cardioembolic source of stroke
- Unclear etiology. She had transient cardiomyopathy in the past (EF 45%). She will need repeat ischemic evaluation and cardiac MRI as an outpatient
- GDMT:
-BB: Start metoprolol succinate 12.5 mg daily (low-dose due to concern for hypertension)
-TC/ARB/ARNI: Start low-dose Entresto
-MRA: Consider in the future. Reportedly had hypotension with this in the past
-SGLT2 inhibitor: Continue Farxiga
- Reassess for ICD in 3 months
Mobile echodensity in the right atrium
- Differential diagnosis includes thrombus, vegetation, eustachian valve remnant, or cast from chemo port
- Start Eliquis (DVT dosing)
- Repeat EVELYN in 4-6 weeks to look for resolution
Physical Exam
Vital Signs/Labs
Vital Signs
Temp Pulse Resp BP Pulse Ox
98.2 F 96 16 131/85 99
03/14/25 11:00 03/14/25 11:00 03/14/25 11:00 03/14/25 11:00 03/14/25 11:00
03/13/25 03/14/25 03/15/25
06:59 06:59 06:59
Actual Weight 132 lb 15.02 oz 130 lb 4 oz
03/14/25 07:35
03/14/25 07:35
Magnesium 1.8 mg/dl (1.6-2.3) 03/14/25 07:35
Triglycerides 53 mg/dl (10-149) 03/13/25 04:17
LDL Cholesterol, Calc 31 mg/dl 03/13/25 04:17
VLDL Cholesterol, Calc 10 mg/dl (0-30) 03/13/25 04:17
HDL Cholesterol 62 mg/dl 03/13/25 04:17
TSH 0.83 uIU/ml (0.47-4.68) 03/12/25 18:19
LAB Results
03/12/25 03/12/25
20:01 20:59
Troponin I Cancelled < 0.012
Physical Exam
Constitutional: No acute distress and Comfortable
Cardiovascular: Rhythm & rate is regular, Pedal edema is absent, S1S2 is normal and Murmur/rub/gallop absent
Respiratory: Respiratory effort normal and Lungs clear to auscul.
Neuro/Psych: AO x 3
Data Reviewed
-
Date of Service: March 14, 2025
Medical Decision Making: Reviewed Test Results, Independent Historian Assessment, Test Interpretation and Review of Case with other Provider
EKG: Tracing Personally Visualized and interpreted
Echo: Tracing Personally Visualized and interpreted and Report Reviewed by me
X-Ray/CT/US/MRI/NUC/PET: Report Reviewed by me
Labs: Labs Reviewed by me
[2025-03-14 13:23] LABS: Glucose - Point of Care 81 mg/dl (70-99)
[2025-03-14] MEDS: KCL ELIXIR 40 MEQ PO (14:29)
[2025-03-14 17:22] LABS: Glucose - Point of Care 180 mg/dl (70-99)
[2025-03-14] MEDS: NOVOLOG FLEXPEN-LOW RESISTANCE 1 UNITS SC (18:12)
[2025-03-14 18:31] LABS: Ferritin 19.5 ng/ml (11.1-264.0)
--- NOTE | 2025-03-14 19:40 | PTCARENOTE ---
Contacted [employer]EL[employer] via TT to request neuro checks to be changed to NIHSS protocol. Electronic orders received. Informed by resident that pt is being discharged to home. Awaiting orders.
--- NOTE | 2025-03-14 20:46 | PTCARENOTE ---
Discharge instructions reviewed, pt able to read back and verbalize understanding. Escorted by with all personal belongings. VAT RN deaccessed SubQ port. Telemetry and IV removed.
--- NOTE | 2025-03-16 09:16 | PN.CDI ---
CDI
- -
CDI:
Physician Documentation Request
Admit Date: 03/12/25 23:08
Dear Doctor Kamila
Please review the following and provide your response in the progress notes.
Patient admitted with CVA
The diagnosis of cytotoxic edema was included in the signed MRI 03/13.
'There is a large acute ischemic transcortical infarct in the posteromedial left temporal lobe anterior left occipital lobe containing restricted diffusion and high T2/FLAIR signal intensity cytotoxic edema which measures 4.5 x 2.3 x 1.4 cm in AP,
transverse, and craniocaudal dimensions.'
Please indicate in your progress notes if you are in agreement that the above diagnosis is valid for this patient:
____ - cytotoxic edema is a valid diagnosis (Please include it in your progress notes)
____ - cytotoxic edema is not a valid diagnosis for this patien
____ - Other
Use of terms such as suspected, likely, concern for, or probable are acceptable for a diagnosis that is being evaluated, monitored or treated as if it exists and can be coded in the inpatient setting, when documented at the time of discharge.
Thank you,
Ngoc Acosta RN BSN
CDI Specialist
tiger text
Please use your independent medical judgment in providing your response.
--- NOTE | 2025-03-16 09:20 | PN.CDI ---
CDI
- -
CDI:
Physician Documentation Request
Admit Date: 03/12/25 23:08
Dear Doctor Kamila,
Patient admitted with CVA.
Urine culture positive for Escherichia coli
UA results:
Laboratory Tests
03/13/25
00:01
Urine Color Yellow
Urine Clarity Clear
Ur Occult Blood Reflex 1+ A
Urine Nitrite (Reflex) Negative
Leukocyte Esterase Rfl 3+ A
Urine WBC (Reflex) 26-30 A
Urine Bacteria (Reflex) Many A
Please provide a diagnosis, that supports the above lab abnormalities and additional evaluation/ monitoring:
UTI
Asymptomatic bacteruria
Other
Use of terms such as suspected, likely, concern for, or probable (associated with a specific diagnosis that is being evaluated, monitored, or treated as if it exists) are acceptable and can be coded in the inpatient setting, when documented at the
time of discharge.
Thank you,
Ngoc Acosta RN, BSN
CDI Specialist
tiger text
Please use your independent medical judgment in providing your response.
== END 2025-03-14 20:51 | disposition home or self-care (01) | DRG 64 ==
LOC: 2 NORTH 23:08
PROVIDERS: Emergency Medicine; Physician Assistant; Student in an Organized Health Care Education/Training Program; ADMITTING PHYSICIAN Hospitalist; ATTENDING PHYSICIAN Hospitalist; CONSULT PHYSICIAN Internal Medicine Cardiovascular Disease; CONSULT PHYSICIAN Psychiatry & Neurology Neurology; EMERGENCY PHYSICIAN Emergency Medicine; FAMILY PHYSICIAN Family Medicine
PROC: B24BZZ4 Ultrasonography of Heart with Aorta, Transesophageal (ICD-10-PCS; 2025-03-14)
DX: I63.541 Cerebral infarction due to unspecified occlusion or stenosis of right cerebellar artery (principal); G93.6 Cerebral edema; F11.20 Opioid dependence, uncomplicated; I42.9 Cardiomyopathy, unspecified; I50.42 Chronic combined systolic (congestive) and diastolic (congestive) heart failure; I13.0 Hypertensive heart and chronic kidney disease with heart failure and stage 1 through stage 4 chronic kidney disease, or unspecified chronic kidney disease; N18.31 Chronic kidney disease, stage 3a; D63.1 Anemia in chronic kidney disease; E83.110 Hereditary hemochromatosis; E11.22 Type 2 diabetes mellitus with diabetic chronic kidney disease; Z98.84 Bariatric surgery status; E87.6 Hypokalemia; K21.9 Gastro-esophageal reflux disease without esophagitis; G89.4 Chronic pain syndrome; E03.9 Hypothyroidism, unspecified; E11.42 Type 2 diabetes mellitus with diabetic polyneuropathy; I70.0 Atherosclerosis of aorta; Z79.890 Hormone replacement therapy; G25.81 Restless legs syndrome; Z82.3 Family history of stroke; Z88.2 Allergy status to sulfonamides; J45.909 Unspecified asthma, uncomplicated; K86.89 Other specified diseases of pancreas; I25.10 Atherosclerotic heart disease of native coronary artery without angina pectoris; E11.43 Type 2 diabetes mellitus with diabetic autonomic (poly)neuropathy; F32.A Depression, unspecified; F41.9 Anxiety disorder, unspecified; G47.30 Sleep apnea, unspecified; H35.30 Unspecified macular degeneration; I48.91 Unspecified atrial fibrillation; K58.9 Irritable bowel syndrome, unspecified; M06.9 Rheumatoid arthritis, unspecified; M79.7 Fibromyalgia; Z79.85 Long-term (current) use of injectable non-insulin antidiabetic drugs; Z82.49 Family history of ischemic heart disease and other diseases of the circulatory system
CPT/HCPCS: 70450; 70496; 70498; 70553; 80048; 80053; 80061; 81003; 81015; 82140; 82607; 82728; 82805; 82962; 83036; 83540; 83550; 83605; 83735; 84443; 84484; 85025; 85027; 87077; 87086; 87186; 92523; 92610; 93005; 93306; 93312; 93320; 93325; 96374; 97116; 97163; 97167; 99285; Q9950; Q9967

== ENCOUNTER 2025-04-04 08:38 | Outpatient (RCR) | payer MEDICARE, OTHER, SELFPAY ==
[2025-04-04 09:12] LABS: Hematocrit 35.3 % (37.0-47.0); Hemoglobin 11.5 g/dL (12.0-16.0); Mean Corp Hgb Conc. 32.6 g/dL (33.0-37.0); Mean Corpuscular Volume 86.3 fL (81.0-99.0); Platelet Count 230 10^3/uL (130-400); Red Cell Dist. Width 14.9 % (11.5-14.5)
[2025-04-04 10:33] LABS: Albumin 4.0 g/dl (3.5-5.0); Blood Urea Nitrogen 19 mg/dl (7-17); Calcium 8.5 mg/dl (8.4-10.2); Carbon Dioxide 24 mmol/L (22-30); Chloride 108 mmol/L (98-107); Glucose 135 mg/dl (70-99); Potassium 2.8 mmol/L (3.5-5.1); Sodium 142 mmol/L (135-145); eGFR 58.24
[2025-04-04 12:24] LABS: Ferritin 35.2 ng/ml (11.1-264.0)
== END 2025-04-29 23:59 | disposition home or self-care (01) ==
LOC: OID 08:38
PROVIDERS: ATTENDING PHYSICIAN Internal Medicine Hematology & Oncology; FAMILY PHYSICIAN Family Medicine; REFERRING PHYSICIAN Nurse Practitioner
DX: E83.110 Hereditary hemochromatosis (principal); N18.30 Chronic kidney disease, stage 3 unspecified; D63.1 Anemia in chronic kidney disease; Z98.84 Bariatric surgery status; I50.22 Chronic systolic (congestive) heart failure; I42.0 Dilated cardiomyopathy; Z86.73 Personal history of transient ischemic attack (TIA), and cerebral infarction without residual deficits
CPT/HCPCS: 36415; 80048; 80069; 82728; 85025

== ENCOUNTER → 2025-04-09 10:12 | Outpatient (REF) | payer MEDICARE, OTHER, SELFPAY ==
[2025-04-09 12:36] LABS: Albumin 3.9 g/dl (3.5-5.0); Blood Urea Nitrogen 12 mg/dl (7-17); Calcium 8.7 mg/dl (8.4-10.2); Carbon Dioxide 25 mmol/L (22-30); Chloride 111 mmol/L (98-107); Glucose 169 mg/dl (70-99); Potassium 5.3 mmol/L (3.5-5.1); Sodium 143 mmol/L (135-145); eGFR 52.47
== END ==
LOC: REG 10:12
PROVIDERS: ATTENDING PHYSICIAN Obstetrics & Gynecology; FAMILY PHYSICIAN Family Medicine
DX: N18.31 Chronic kidney disease, stage 3a (principal); E87.6 Hypokalemia; I50.30 Unspecified diastolic (congestive) heart failure
CPT/HCPCS: 36415; 80069

== ENCOUNTER 2025-04-17 08:15 | Day surgery (SDC) | payer MEDICARE, OTHER, SELFPAY ==
--- NOTE | 2025-04-17 11:25 | ITS.CL.IMPLP ---
[facility] - Implant Loop
Implant Loop
Procedure Report:
Procedure: Insertion of Loop Recorder.�
Date of the procedure: 04/17/2025
Procedure Physician: Monique Arias MD [facility]
Indication: Cryptogenic stroke
Description of the procedure:
Patient was brought to the holding area after informed consent was obtained from the patient. The time-out was performed immediately before the procedure.
The left parasternal chest area was prepped and draped in sterile fashion with chlorhexidine prep x 3 times. Lidocaine 1% was injected subcutaneously for local anesthesia. The loop recorder was tunneled and then injected into the subcutaneous
tissue. The tunneling tool was removed leaving the loop recorder in place. The dermis was closed with 4-0 monocryl and steristrips and a pressure Tegaderm dressing was placed. There were no immediate complications.
Post procedure, the device was interrogated and showed good detectable P and R waves.
There were no immediate complications.
Device:
LINQII; Model: LNQ22; Serial #:[id number]
R wave amplitude: 1.6 mV
Final Programming:
��������������� Tachycardia Detection: >182 bpm for 16 beats
��������������� Bradycardia Detection: 30 bpm for 12 beats, Asystole for 5 seconds.
��������������� Atrial fibrillation detection: On with > 10 min duration
Conclusion:
Successful insertion of loop recorder.
Recommendation:
Routine post-insert loop care.
== END 2025-04-17 12:00 | disposition home or self-care (01) ==
LOC: CATH 08:15
PROVIDERS: ATTENDING PHYSICIAN Internal Medicine Cardiovascular Disease; FAMILY PHYSICIAN Family Medicine; OTHER PHYSICIAN Internal Medicine Cardiovascular Disease
DX: Z09 Encounter for follow-up examination after completed treatment for conditions other than malignant neoplasm (principal); I51.7 Cardiomegaly; Z86.73 Personal history of transient ischemic attack (TIA), and cerebral infarction without residual deficits; I50.22 Chronic systolic (congestive) heart failure; Z79.899 Other long term (current) drug therapy; Z79.01 Long term (current) use of anticoagulants
CPT/HCPCS: 33285; 93312; 93320; 93325; C1764

== ENCOUNTER 2025-05-28 08:30 | Outpatient (RCR) | payer MEDICARE, OTHER, SELFPAY | END 2025-05-28 23:59 | disposition home or self-care (01) | LOC: ROT 08:30 | PROVIDERS: ATTENDING PHYSICIAN Nurse Practitioner; FAMILY PHYSICIAN Family Medicine | DX: I69.312 Visuospatial deficit and spatial neglect following cerebral infarction (principal); I69.311 Memory deficit following cerebral infarction; I69.318 Other symptoms and signs involving cognitive functions following cerebral infarction; I69.310 Attention and concentration deficit following cerebral infarction; Z73.6 Limitation of activities due to disability | CPT/HCPCS: 96125; 97110; 97112; 97116; 97129; 97130; 97163; 97167; 97530; 97535; 97537 ==

== ENCOUNTER 2025-05-29 08:27 | Outpatient (RCR) | payer MEDICARE, OTHER, SELFPAY ==
[2025-05-29 08:57] LABS: Hematocrit 29.4 % (37.0-47.0); Hemoglobin 9.8 g/dL (12.0-16.0); Mean Corp Hgb Conc. 33.3 g/dL (33.0-37.0); Mean Corpuscular Volume 88.0 fL (81.0-99.0); Platelet Count 173 10^3/uL (130-400); Red Cell Dist. Width 14.5 % (11.5-14.5)
[2025-05-29 09:00] VITALS: BP 108/73
[2025-05-29 09:45] LABS: Blood Urea Nitrogen 17 mg/dl (7-17); Calcium 8.2 mg/dl (8.4-10.2); Carbon Dioxide 25 mmol/L (22-30); Chloride 109 mmol/L (98-107); Glucose 106 mg/dl (70-99); Potassium 2.7 mmol/L (3.5-5.1); Sodium 139 mmol/L (135-145); eGFR 58.24
[2025-05-29 10:15] LABS: Ferritin 12.8 ng/ml (11.1-264.0)
== END 2025-05-29 23:59 | disposition home or self-care (01) ==
LOC: OID 08:27
PROVIDERS: Nurse Practitioner; ATTENDING PHYSICIAN Internal Medicine Hematology & Oncology; FAMILY PHYSICIAN Family Medicine
DX: E83.110 Hereditary hemochromatosis (principal); Z98.84 Bariatric surgery status; N18.30 Chronic kidney disease, stage 3 unspecified; D63.1 Anemia in chronic kidney disease
CPT/HCPCS: 80048; 82728; 85025; 96523

== ENCOUNTER → 2025-06-01 12:42 | Outpatient (REF) | payer MEDICARE, OTHER, SELFPAY ==
[2025-06-01 15:36] LABS: Blood Urea Nitrogen 17 mg/dl (7-17); Calcium 8.1 mg/dl (8.4-10.2); Carbon Dioxide 23 mmol/L (22-30); Chloride 113 mmol/L (98-107); Glucose 73 mg/dl (70-99); Potassium 3.4 mmol/L (3.5-5.1); Sodium 141 mmol/L (135-145); eGFR 58.24
== END ==
LOC: REG 12:42
PROVIDERS: ATTENDING PHYSICIAN Nurse Practitioner; FAMILY PHYSICIAN Family Medicine
DX: E87.6 Hypokalemia (principal)
CPT/HCPCS: 36415; 80048

== ENCOUNTER 2025-06-26 08:28 | Outpatient (RCR) | payer MEDICARE, OTHER, SELFPAY ==
[2025-06-05 09:10] VITALS: BP 98/60
[2025-06-05 09:24] LABS: Hematocrit 30.7 % (37.0-47.0); Hemoglobin 10.0 g/dL (12.0-16.0); Mean Corp Hgb Conc. 32.6 g/dL (33.0-37.0); Mean Corpuscular Volume 90.8 fL (81.0-99.0); Platelet Count 203 10^3/uL (130-400); Red Cell Dist. Width 14.6 % (11.5-14.5)
[2025-06-05 10:34] LABS: Blood Urea Nitrogen 21 mg/dl (7-17); Calcium 8.0 mg/dl (8.4-10.2); Carbon Dioxide 24 mmol/L (22-30); Chloride 105 mmol/L (98-107); Glucose 228 mg/dl (70-99); Potassium 4.5 mmol/L (3.5-5.1); Sodium 138 mmol/L (135-145); eGFR 47.66
[2025-06-13 14:30] VITALS: BP 103/60
[2025-06-13 14:55] LABS: Hematocrit 31.3 % (37.0-47.0); Hemoglobin 10.2 g/dL (12.0-16.0); Mean Corp Hgb Conc. 32.6 g/dL (33.0-37.0); Mean Corpuscular Volume 90.5 fL (81.0-99.0); Platelet Count 219 10^3/uL (130-400); Red Cell Dist. Width 13.6 % (11.5-14.5)
[2025-06-13 15:58] LABS: Albumin 3.7 g/dl (3.5-5.0); Blood Urea Nitrogen 16 mg/dl (7-17); Calcium 8.6 mg/dl (8.4-10.2); Carbon Dioxide 23 mmol/L (22-30); Chloride 110 mmol/L (98-107); Glucose 183 mg/dl (70-99); Potassium 4.5 mmol/L (3.5-5.1); Sodium 140 mmol/L (135-145); eGFR 47.66
[2025-06-13 16:32] LABS: Ferritin 10.2 ng/ml (11.1-264.0)
[2025-06-19 09:15] LABS: Hematocrit 30.3 % (37.0-47.0); Hemoglobin 9.8 g/dL (12.0-16.0); Mean Corp Hgb Conc. 32.3 g/dL (33.0-37.0); Mean Corpuscular Volume 90.4 fL (81.0-99.0); Platelet Count 176 10^3/uL (130-400); Red Cell Dist. Width 13.6 % (11.5-14.5)
[2025-06-19 09:30] VITALS: BP 103/55
[2025-06-26 09:16] VITALS: BP 94/51
[2025-06-26 09:16] LABS: Hematocrit 31.0 % (37.0-47.0); Hemoglobin 10.2 g/dL (12.0-16.0); Mean Corp Hgb Conc. 32.9 g/dL (33.0-37.0); Mean Corpuscular Volume 89.9 fL (81.0-99.0); Platelet Count 182 10^3/uL (130-400); Red Cell Dist. Width 13.6 % (11.5-14.5)
[2025-06-26 10:21] LABS: Ferritin 9.0 ng/ml (11.1-264.0)
== END 2025-06-27 11:16 | disposition home or self-care (01) ==
LOC: OID 08:28
PROVIDERS: ATTENDING PHYSICIAN Internal Medicine Hematology & Oncology; FAMILY PHYSICIAN Family Medicine; REFERRING PHYSICIAN Internal Medicine Cardiovascular Disease
DX: E83.110 Hereditary hemochromatosis (principal); N18.31 Chronic kidney disease, stage 3a; D63.1 Anemia in chronic kidney disease; Z98.84 Bariatric surgery status
CPT/HCPCS: 36591; 80048; 80069; 82728; 85025; 96523

== ENCOUNTER 2025-06-28 10:07 | Outpatient (RCR) | payer MEDICARE, OTHER, SELFPAY | END 2025-06-28 23:59 | disposition home or self-care (01) | LOC: RST 10:07 | PROVIDERS: ATTENDING PHYSICIAN Nurse Practitioner; FAMILY PHYSICIAN Family Medicine | DX: I69.312 Visuospatial deficit and spatial neglect following cerebral infarction (principal); I69.311 Memory deficit following cerebral infarction; Z73.6 Limitation of activities due to disability; I69.318 Other symptoms and signs involving cognitive functions following cerebral infarction; I69.310 Attention and concentration deficit following cerebral infarction | CPT/HCPCS: 97110; 97112; 97116; 97129; 97130; 97530; 97535 ==

== ENCOUNTER 2025-07-23 09:12 | Outpatient (RCR) | payer MEDICARE, OTHER, SELFPAY | END 2025-07-23 23:59 | disposition home or self-care (01) | LOC: RST 09:12 | PROVIDERS: ATTENDING PHYSICIAN Nurse Practitioner; FAMILY PHYSICIAN Family Medicine | DX: I69.312 Visuospatial deficit and spatial neglect following cerebral infarction (principal); I69.311 Memory deficit following cerebral infarction; I69.310 Attention and concentration deficit following cerebral infarction; Z73.6 Limitation of activities due to disability; I69.318 Other symptoms and signs involving cognitive functions following cerebral infarction | CPT/HCPCS: 97110; 97112; 97116; 97129; 97130; 97530; 97535; 97537 ==

== ENCOUNTER 2025-07-25 11:07 | Outpatient (RCR) | payer MEDICARE, OTHER, SELFPAY ==
[2025-07-03 08:42] VITALS: BP 104/61
[2025-07-03 09:05] LABS: Hematocrit 31.9 % (37.0-47.0); Hemoglobin 10.4 g/dL (12.0-16.0); Mean Corp Hgb Conc. 32.6 g/dL (33.0-37.0); Mean Corpuscular Volume 89.6 fL (81.0-99.0); Platelet Count 189 10^3/uL (130-400); Red Cell Dist. Width 13.3 % (11.5-14.5)
[2025-07-10 08:47] VITALS: BP 109/60
[2025-07-10 09:27] LABS: Hematocrit 30.0 % (37.0-47.0); Hemoglobin 10.1 g/dL (12.0-16.0); Mean Corp Hgb Conc. 33.7 g/dL (33.0-37.0); Mean Corpuscular Volume 90.1 fL (81.0-99.0); Platelet Count 200 10^3/uL (130-400); Red Cell Dist. Width 13.2 % (11.5-14.5)
[2025-07-10 10:47] LABS: Ferritin 8.0 ng/ml (11.1-264.0)
[2025-07-17 08:50] VITALS: BP 111/58
[2025-07-17 09:07] LABS: Hematocrit 32.4 % (37.0-47.0); Hemoglobin 10.2 g/dL (12.0-16.0); Mean Corp Hgb Conc. 31.5 g/dL (33.0-37.0); Mean Corpuscular Volume 93.1 fL (81.0-99.0); Platelet Count 204 10^3/uL (130-400); Red Cell Dist. Width 13.1 % (11.5-14.5)
[2025-07-24 08:48] VITALS: BP 104/67
[2025-07-24 09:06] LABS: Hematocrit 32.0 % (37.0-47.0); Hemoglobin 10.2 g/dL (12.0-16.0); Mean Corp Hgb Conc. 31.9 g/dL (33.0-37.0); Mean Corpuscular Volume 92.8 fL (81.0-99.0); Platelet Count 228 10^3/uL (130-400); Red Cell Dist. Width 13.1 % (11.5-14.5)
[2025-07-24 10:07] LABS: Ferritin 9.6 ng/ml (11.1-264.0)
[2025-07-25 12:09] LABS: ALT (SGPT) 18 U/L (0-35); AST (SGOT) 24 U/L (14-36); Albumin 3.8 g/dl (3.5-5.0); Alkaline Phosphatase 137 U/L (38-126); Blood Urea Nitrogen 15 mg/dl (7-17); Calcium 8.5 mg/dl (8.4-10.2); Carbon Dioxide 25 mmol/L (22-30); Chloride 109 mmol/L (98-107); Glucose 113 mg/dl (70-99); HDL Cholesterol 70 mg/dl; LDL Cholesterol, Calculated 48 mg/dl; Potassium 4.0 mmol/L (3.5-5.1); Sodium 140 mmol/L (135-145); Total Protein 6.8 g/dl (6.3-8.2); Very Low Density Lipoprotein 14 mg/dl (0-30); eGFR 52.47
[2025-07-25 12:40] LABS: TSH 2.90 uIU/ml (0.47-4.68)
[2025-07-25 13:23] LABS: Glycohemoglobin (HgbA1c) 5.7 % (4.0-5.9)
[2025-07-25 16:14] LABS: Microalb - Urine Creatinine 73.800 mg/dl
[2025-07-25 16:18] LABS: Microalbumin, Random Urine 0.9 mg/dl (0.6-1.7)
== END 2025-07-25 13:56 | disposition home or self-care (01) ==
LOC: OID 11:07
PROVIDERS: Internal Medicine Endocrinology, Diabetes & Metabolism; ATTENDING PHYSICIAN Internal Medicine Hematology & Oncology; FAMILY PHYSICIAN Family Medicine; REFERRING PHYSICIAN Internal Medicine Cardiovascular Disease
DX: E83.110 Hereditary hemochromatosis (principal); D45 Polycythemia vera; N18.31 Chronic kidney disease, stage 3a; Z98.84 Bariatric surgery status; D63.1 Anemia in chronic kidney disease
CPT/HCPCS: 36415; 36591; 80053; 80061; 82043; 82570; 82728; 83036; 84443; 85025; 96523

== ENCOUNTER → 2025-07-30 08:40 | Outpatient (REF) | payer MEDICARE, OTHER, SELFPAY | LOC: PAVMRI 08:40 | PROVIDERS: ATTENDING PHYSICIAN Internal Medicine Cardiovascular Disease; FAMILY PHYSICIAN Family Medicine | DX: I50.22 Chronic systolic (congestive) heart failure (principal); I42.0 Dilated cardiomyopathy; I51.3 Intracardiac thrombosis, not elsewhere classified | CPT/HCPCS: 75561; 75565; A9585 ==

== ENCOUNTER 2025-08-21 08:38 | Outpatient (RCR) | payer MEDICARE, OTHER, SELFPAY ==
[2025-07-31 08:48] VITALS: BP 124/72
[2025-07-31 09:05] LABS: Hematocrit 32.9 % (37.0-47.0); Hemoglobin 10.4 g/dL (12.0-16.0); Mean Corp Hgb Conc. 31.6 g/dL (33.0-37.0); Mean Corpuscular Volume 91.4 fL (81.0-99.0); Platelet Count 223 10^3/uL (130-400); Red Cell Dist. Width 12.7 % (11.5-14.5)
[2025-08-07 08:53] VITALS: BP 116/62
[2025-08-07 09:14] LABS: Hematocrit 30.3 % (37.0-47.0); Hemoglobin 9.7 g/dL (12.0-16.0); Mean Corp Hgb Conc. 32.0 g/dL (33.0-37.0); Mean Corpuscular Volume 90.4 fL (81.0-99.0); Platelet Count 192 10^3/uL (130-400); Red Cell Dist. Width 13.0 % (11.5-14.5)
[2025-08-07 11:50] LABS: Ferritin 7.9 ng/ml (11.1-264.0)
[2025-08-14 09:13] LABS: Hematocrit 31.3 % (37.0-47.0); Hemoglobin 10.0 g/dL (12.0-16.0); Mean Corp Hgb Conc. 31.9 g/dL (33.0-37.0); Mean Corpuscular Volume 90.5 fL (81.0-99.0); Platelet Count 203 10^3/uL (130-400); Red Cell Dist. Width 13.0 % (11.5-14.5)
[2025-08-21 09:12] LABS: Hematocrit 32.8 % (37.0-47.0); Hemoglobin 10.4 g/dL (12.0-16.0); Mean Corp Hgb Conc. 31.7 g/dL (33.0-37.0); Mean Corpuscular Volume 89.6 fL (81.0-99.0); Platelet Count 226 10^3/uL (130-400); Red Cell Dist. Width 13.0 % (11.5-14.5)
[2025-08-21 09:16] VITALS: BP 118/71
[2025-08-21 10:36] LABS: Ferritin 8.1 ng/ml (11.1-264.0)
[2025-08-21 10:40] LABS: Albumin 4.2 g/dl (3.5-5.0); Blood Urea Nitrogen 21 mg/dl (7-17); Calcium 8.7 mg/dl (8.4-10.2); Carbon Dioxide 22 mmol/L (22-30); Chloride 106 mmol/L (98-107); Glucose 162 mg/dl (70-99); Potassium 4.1 mmol/L (3.5-5.1); Sodium 136 mmol/L (135-145); eGFR 52.47
== END 2025-08-29 12:53 | disposition home or self-care (01) ==
LOC: OID 08:38
PROVIDERS: ATTENDING PHYSICIAN Internal Medicine Hematology & Oncology; FAMILY PHYSICIAN Family Medicine; REFERRING PHYSICIAN Internal Medicine Cardiovascular Disease
DX: E83.110 Hereditary hemochromatosis (principal); Z98.84 Bariatric surgery status; D63.1 Anemia in chronic kidney disease; N18.31 Chronic kidney disease, stage 3a
CPT/HCPCS: 36415; 36591; 80069; 82728; 85025; 96523

== ENCOUNTER 2025-08-28 07:09 | Outpatient (RCR) | payer MEDICARE, OTHER, SELFPAY | END 2025-08-28 23:59 | disposition home or self-care (01) | LOC: RST 07:09 | PROVIDERS: ATTENDING PHYSICIAN Nurse Practitioner; FAMILY PHYSICIAN Family Medicine | DX: I69.318 Other symptoms and signs involving cognitive functions following cerebral infarction (principal); I69.310 Attention and concentration deficit following cerebral infarction; Z73.6 Limitation of activities due to disability; I69.311 Memory deficit following cerebral infarction; I69.312 Visuospatial deficit and spatial neglect following cerebral infarction | CPT/HCPCS: 97110; 97112; 97116; 97129; 97130; 97530; 97535 ==